=== PATIENT | female | born 1965 | race African-American/Black ===

== ENCOUNTER 2017-06-07 16:35 | Emergency (ER) | payer BC, OTHER ==
[~2017-06-07] VITALS: Ht 162.6 cm; Wt 161.8 kg
[~2017-06-07 16:35] MED LIST: ALBUAER2 INH; APR50 PO; FERR325T5 PO; LISI-725 PO; METO25TA3 PO
[2017-06-07 16:45] VITALS: TEMP 36.6
[2017-06-07] MEDS ORDERED: ONDANSETRON INJ 2 MG/ML 2 ML VIAL IV STA (17:44)
[2017-06-07] MEDS ORDERED: MoRPHine SULFATE 4 MG/ML 1 ML CARP\\VIAL IV STA (17:44)
[2017-06-07] MEDS ORDERED: SODIUM CHLORIDE 0.9% 1000ML 1,000 ML IV STA ×2 (17:44→20:32)
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
[2017-06-07 17:52] VITALS: Ht 162.6 cm; Wt 161.8 kg
[2017-06-07] MEDS ORDERED: DEXAMETHASONE SOD INJ 10 MG/ML VIAL IV ONE (18:00)
[2017-06-07] MEDS ORDERED: OPTIRAY 320 IV PRN (18:00)
[2017-06-07 18:27] LABS: BASO % 0.2 %; BASO ABS # 0.02 K/uL (0-0.2); COMPLETE YES; HEMATOCRIT 40.1 % (37-47); IG% 0.3 %; LYMPH % 29.6 %; LYMPH ABS # 3.43 K/uL (1.2-3.4); MEAN CELL VOLUME 86.2 fL (80-100); MEAN CORPUSCULAR HEMOGLOBIN 29.2 pg (25-34); MEAN CORPUSCULAR HGB CONC 33.9 g/dl (32-36); MONO % 6.9 %; PLATELET COUNT 273 K/uL (130-400); RED BLOOD COUNT 4.65 M/uL (4.2-5.4)
[2017-06-07 18:53] LABS: BUN/CREATININE RATIO 13.2 (10-20); CALCIUM 9.2 mg/dl (8.5-10.1); CREATININE 0.69 mg/dl (0.60-1.20); POTASSIUM 3.8 mmol/L (3.5-5.1)
--- NOTE | 2017-06-07 19:50 | DIAGNOSTIC IMAGING REPORT ---
HEAD COMBO CLINICAL HISTORY: 52 years-old Female presenting with left mastoid,face,neck pain swelling r/o infection. TECHNIQUE: Multidetector CT imaging of the head was performed before and after the administration of intravenous contrast. IV contrast: 116 mL of Optiray 320. A dose lowering technique was used consistent with the principles of ALARA (as low as reasonably achievable). COMPARISON: 06/03/2016. CT DOSE (mGy.cm): The estimated cumulative dose is 2622.[address] neck. FINDINGS: Case Sealer topogram: Unremarkable. Ventricles and sulci normal in size. Brain parenchyma normal in appearance with preserved deleon-white differentiation. No mass effect or midline shift. No hemorrhage or acute territorial infarct. No extra-axial fluid collection. Paranasal sinuses and mastoid air cells clear. Calvarium intact. No abnormal parenchymal enhancement. Intracranial vasculature grossly patent. IMPRESSION: 1. No acute intracranial pathology. No abnormal enhancement. Specifically, the left mastoid air cells are clear. Electronically signed by: Demetrio Anderson M.D. 06/07/2017 7:49 PM Dictated Date/Time: 06/07/2017 7:45 PM
--- NOTE | 2017-06-07 19:54 | DIAGNOSTIC IMAGING REPORT ---
CT NECK WITH INTRAVENOUS CONTRAST HISTORY: left mastoid,face,neck pain swelling r/o infection TECHNIQUE: Multiaxial CT images of the neck were performed on the use of intravenous contrast. COMPARISON STUDY: None. FINDINGS: The visualized brain parenchyma and orbits are unremarkable. The lung apices are clear. The paranasal sinuses and mastoid air cells are clear. The parotid and submandibular glands are symmetric. No cervical lymphadenopathy. The major mucosal airway surfaces are intact. Prevertebral soft tissues and the epiglottis are normal in thickness. The thyroid gland enhances normally. The major cervical vessels are widely patent. A few small bilateral intraparotid lymph nodes. No evidence for mass or abscess within the neck. IMPRESSION: No significant abnormality within the neck. Electronically signed by: Cruz Sher M.D. 06/07/2017 7:53 PM Dictated Date/Time: 06/07/2017 7:46 PM
[2017-06-07] MEDS ORDERED: METOCLOPRAMIDE HCL INJ 5 MG/ML 2 ML VIAL IV STA (20:32)
[2017-06-07] MEDS ORDERED: DiphenhydrAMINE HCL 50 MG/ML VIAL IV STA (20:32)
[2017-06-07] MEDS ORDERED: AMOXICILLIN/CLAVULANATE TAB 875 MG TAB PO STA (22:30)
[2017-06-07] MEDS ORDERED: AMOX875T PO (22:33)
[2017-06-07 22:40] VITALS: BP 151/76; PULSE 70; O2SAT 96
[2017-06-08] MEDS ORDERED: AMOXICILLIN/CLAVULANATE TAB 875 MG TAB PO SCH (09:00)
== END 2017-06-07 22:40 | disposition home or self-care (01) ==
LOC: C.EDB 16:36 → C.EDC 22:40
DX: H66.92 Otitis media, unspecified, left ear (principal); G43.909 Migraine, unspecified, not intractable, without status migrainosus; I10 Essential (primary) hypertension

== ENCOUNTER 2018-12-23 19:36 | Inpatient (IN) ==
[2018-12-23] MEDS ORDERED: SODIUM CHLORIDE 0.9% 500 ML IV ONE (19:52)
[2018-12-23] MEDS ORDERED: ALBUT/IPRATROP 3MG/0.5MG NEB 3 ML VIAL NEB ONE (20:03)
[2018-12-23] MEDS ORDERED: methylPREDNISolone 125 MG/2 ML VIAL IV STA (20:03)
--- NOTE | 2018-12-23 20:12 | XRay Report ---
XR chest 1V portable HISTORY: 53 years-old Female Chest Pain acute atypical chest pain COMPARISON: Chest radiograph 12/01/2012 TECHNIQUE: Portable AP view of the chest FINDINGS: Cardiac mediastinal and hilar silhouettes are unchanged. No pneumothorax, pleural effusion, focal air space consolidation or overt pulmonary edema. Bones of the chest appear grossly intact. IMPRESSION: No acute process. The above report was generated using voice recognition software. It may contain grammatical, syntax o r spelling errors. Electronically signed by: Kelby Ding M.D. 12/23/2018 8:11 PM
[2018-12-23 20:35] LABS: Base Excess VBG 1.7 mEq/L; Oxygen Saturation VBG 89.1 %; pH VBG 7.44 (7.36-7.41)
[2018-12-23 20:38] LABS: Basophils # (auto) 0.02 K/uL (0-0.2); Basophils % (auto) 0.1 %; Eosinophils # (auto) 0.14 K/uL (0-0.5); Eosinophils % (auto) 0.8 %; Hematocrit (blood only) 39.6 % (37-47); Hemoglobin 13.5 g/dL (12.0-16.0); Immature Granulocytes % (auto) 0.6 %; Lymphocytes # (auto) 3.54 K/uL (1.2-3.4); Mean Corpuscular Hgb Conc 34.1 g/dL (32-36); Mean Corpuscular Volume 86.8 fL (80-100); Monocytes # (auto) 1.17 K/uL (0.11-0.59); Monocytes % (auto) 6.6 %; Neutrophils # (auto) 12.76 K/uL (1.4-6.5); Neutrophils % (auto) 71.9 %; Platelet Count 282 K/uL (130-400); RDW Coefficient of Variation 13.9 % (11.5-14.5); RDW Standard Deviation 43.6 fL (36.4-46.3); Red Blood Count 4.56 M/uL (4.2-5.4); White Blood Count 17.73 K/uL (4.8-10.8)
[2018-12-23 21:09] LABS: Albumin Globulin Ratio 0.7 (0.9-2); Albumin Level 3.2 gm/dl (3.4-5.0); Bilirubin,Total 0.2 mg/dl (0.2-1); Calcium 8.7 mg/dl (8.5-10.1); Creatinine Clr Calc Pharmacy 150.1 ml/min; Est GFR (African American) 118.9; Est GFR (Non-African American) 102.6; Globulin 4.3 gm/dl (2.5-4.0); Magnesium 1.7 mg/dl (1.8-2.4); Potassium 3.6 mmol/L (3.5-5.1); Total Protein 7.5 gm/dl (6.4-8.2); Troponin I 0.017 ng/ml (0-0.045)
[2018-12-23 21:38] LABS: Influenza A virus by PCR Neg for Influ A (Neg); Influenza B virus by PCR Neg for Influ B (Neg)
[2018-12-23] MEDS ORDERED: MAGNESIUM SULFATE / D5W 1 GM/100 ML BAG IV ONE (21:46)
[2018-12-23] MEDS ORDERED: SODIUM CHLORIDE 0.9% 1000ML 500 ML IV ONE (21:46)
[2018-12-23] MEDS ORDERED: OPTIRAY 320 125ml IV PRN (22:22)
--- NOTE | 2018-12-23 22:22 | History & Physical Report ---
Date of Service December 23, 2018 Assessment & Plan (1) Multifocal pneumonia: 53 y/o F Hx systolic CHF, HTN, obese, depression, asthma. Presents with progressive SOB, back pain and a productive cough x 4 days. Presented to the ER in respiratory distress. Intubation was initially considered, however, she responded well to nebulizers and BiPAP. A CTA was obtained to r/o PE. No PE was apparent, however, this did demonstrate multifocal PNM. Labs are notable for mild leukocytosis. An EKG shows slight QT prolongation. 1) PNM and asthma exacerbation with respiratory distress/failure - placed on BiPAP, scheduled nebs, steroids, antibiotics. We will assign her to the ICU overnight. Narcotics provided for back pain as she may be allergic to NSAIDS. We have placed her on Ceftriaxone and Doxy due to her QT prolongation. 2) History of CHF - states her EF may have recovered to near-normal with treatment of her HTN - cont Lisinopril, Toprol. 3) Depression - cont Fluoxetine, Gabapentin 4) Morbidly obese - likely needs a sleep study and some nutritional or lifestyle counselling Full code - Heparin prophylaxis Total time for this admit including review of labs, meds, imaging, records - discussion with pt, ER attending, [employer] [employer] critical care time 45 min Present on Admission?: Yes History of Present Illness Chief Complaint: Respiratory distress Primary Care Provider: Chelo Escamilla 53 y/o F Hx systolic CHF, HTN, obese, depression, asthma. Presents with progressive SOB, back pain and a productive cough x 4 days. Presented to the ER in respiratory distress. Intubation was initially considered, however, she responded well to nebulizers and BiPAP. A CTA was obtained to r/o PE. No PE was apparent, however, this did demonstrate multifocal PNM. Labs are notable for mild leukocytosis. An EKG shows slight QT prolongation. PMH: 1) Systolic CHF - nonischemic cardiomyopathy. This was thought due to undiagnosed HTN. An echo in 2012 demonstrated an EF of ~40%. 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 Family: DM II, HTN Allergies Allergy/AdvReac Type Severity Reaction Status Date / Time bee venom protein (honey bee) Allergy Severe THROAT Unverified 12/23/18 22:08 SWELLING ibuprofen Allergy Unknown swelling Unverified 12/23/18 22:08 mushroom Allergy Unknown swelling Unverified 12/23/18 22:08 Home Medications Home Medications Medication Instructions Recorded Confirmed Type albuterol sulfate 6 ml INHALATION Q6 PRN 08/12/18 12/23/18 History albuterol sulfate [Ventolin HFA] 2 puff INHALATION QID PRN 08/12/18 12/23/18 History ferrous sulfate 325 mg PO DAILY 08/12/18 12/23/18 History hydralazine 50 mg PO TID 08/12/18 12/23/18 History lisinopril 10 mg PO DAILY 08/12/18 12/23/18 History metoprolol succinate [Toprol XL] 25 mg PO DAILY 08/12/18 12/23/18 History fluoxetine 0 mg PO DAILY 12/23/18 12/23/18 History gabapentin 300 mg PO TID 12/23/18 12/23/18 History Past Med/Surg History Medical History HTN (hypertension) (Chronic) Asthma (Chronic) PNA (pneumonia) (Resolved) Surgical History Previous section Social History Preferred Language: Romansh Feels Safe at Home: Yes Smoking Status: Former smoker Review of Systems Review of Systems: Gen: Denies fevers, night sweats, rigors, fatigue, malaise, weight loss/gain ENT: Denies congestion, throat pain, hearing loss Eyes: Denies acute visual changes CV: Denies CP, palpitations Pulmonary: Productive cough and progressive SOB. GI: Denies N/V, diarrhea, constipation. Neuro: Denies acute or unilateral weakness, acute gait impairment, headache or acute visual changes Musculoskeletal: Denies joint pain, inflammation Endocrine: Denies polydipsia, polyuria Skin: Denies acute rashes or ulcers Physical Exam Physical Exam: General: Overweight, middle-aged F, mild distress, AAO x 3 ENT: No erythema or exudates, no thrush Eyes: KEV, EOMI Head and neck: Normocephalic, atraumatic, No JVD, neck is supple. Chest/heart: Nontender, S1,2, tachy, no murmurs, no gallops Lungs: Poor air movement and wheezing in all mei Abdomen: Nontender, nondistended, BS+ Neuro: AAO x 3, speech is clear, no unilateral weakness or loss of sensation, coordination intact Musculoskeletal: No joint inflammation, muscle tenderness, FROM Skin: No acute rashes or ulcers Extremities: No clubbing, cyanosis - + edema Results & Data Vital Signs (Past 12 Hours) Vital Signs Temp Pulse Pulse Resp BP Pulse Ox 12/23/18 21:50 107 H 29 H 98 12/23/18 21:30 102 H 27 H 193/96 H 98 12/23/18 21:27 99 H 23 187/92 H 98 12/23/18 20:17 96 H 33 H 97 12/23/18 20:16 96 H 33 H 97 12/23/18 19:40 98.4 F 96 H 28 H 194/90 H 95
--- NOTE | 2018-12-23 22:37 | CT Scan Report ---
CT angio chest PE protocol CT DOSE: 953.02 mGy.cm HISTORY: 53 years-old Female with PE. Acute shortness of breath with cough TECHNIQUE: Multiple CTA images of the chest were obtained after the intravenous administration of 116 ml Optiray 320. Coronal and sagittal MIPS were obtained from the axial data set and were submitted for review. All measurements were obtained according to NASCET criteria. A dose lowering technique w as utilized adhering to the principles of ALARA. COMPARISON: CTA chest 11/15/2012 FINDINGS: CTA: The heart is mildly enlarged. No pericardial effusion. There is no thoracic aortic aneurysm or dissec tion. See of the imaged great vessels. There is mild dilation about the main pulmonary artery, 3.5 cm transversely which may reflect pulmonary arterial hypertension in the appropriate clinical setting. Respiratory motion limits evaluation of the pulmonary arterial tree. The pulmonary arteries are opaci fied to the level of the lobar segments. The segmental and subsegmental branches are not well opacifi ed. No evidence of central pulmonary emboli. CT CHEST: Thyroid appears mildly enlarged. Prominent AP window lymph nodes are seen measuring up to 8 mm, possi allan reactive. No enlarged lymph nodes by CT size criteria. There is no pneumothorax or pleural effusion. No overt pulmonary edema. There are patchy consolidativ e subsegmental opacities noted about the medial segment right middle lobe, medial basal segment right lower lobe and perihilar right upper lobe, basal left lower lobe and lingula with mild basilar bronc hial wall thickening. There are no suspicious pulmonary nodules or masses identified. Central airways appear patent. Prior cholecystectomy. Hepatomegaly with hepatic steatosis. Mild nonspecific wall thickening about th e distal esophagus. Soft tissues are unremarkable. Bones appear to be intact. Degenerative changes of the shoulders and spine. IMPRESSION: 1. Limited evaluation of the pulmonary arterial tree as above. No central pulmonary emboli identified . 2. Patchy subsegmental alveolar opacities within all lobes bilaterally suggest multifocal pneumonia. 3. Mildly prominent AP window lymph nodes, likely reactive. 4. Mild cardiomegaly with suggestion of pulmonary arterial hypertension. 5. Hepatomegaly with hepatic steatosis. 6. Cholecystectomy. The above report was generated using voice recognition software. It may contain grammatical, syntax o r spelling errors. Electronically signed by: Kelby Ding M.D. 12/23/2018 10:36 PM
[2018-12-23] MEDS ORDERED: DOXYCYCLINE HYCLATE 100 MG in DEXTROSE 5% 100 ML IV STA (22:41)
[2018-12-23] MEDS ORDERED: cefTRIAXone SODIUM 1,000 MG/50 ML BAG IV STA (22:41)
[2018-12-23] MEDS ORDERED: cefTRIAXone SODIUM 2,000 MG in DEXTROSE 5% 50 ML IV STA (22:43)
--- NOTE | 2018-12-23 23:13 | Emergency Department Note ---
Entered by Marely Mitchell acting as a scribe for History of Present Illness General Chief complaint: Shortness of Breath/Dyspnea Stated complaint: COUGH, SOB, BACK PAIN Time Seen by Provider: 12/23/18 19:52 Source: patient Mode of arrival: wheelchair Limitations: no limitations History of Present Illness Onset (ago): day(s) 4 Location: chest Radiation: non-radiation Pain Consistency: + other (worsening) Maximum Pain Intensity: 10 Current Pain Intensity: 10 Relieved By: + other (nebulizer) Associated symptoms: + nausea/vomiting and + other (+back pain); no fever/chills Treatments prior to arrival: other (nebulizer treatment) The patient is a 53 year old female who presents to the ED with complaints of shortness of breath. She states she has experienced a productive cough for the past 4 days and her breathing has been gradually worsening. She rates her discomfort as a 10/10 in severity. She notes "everyone in my house is sick right now, I thought this was just a cold". She admits to a history of asthma and states she has been using her nebulizer treatments at home. She denies any fevers. She has been vomiting and also complains of back pain. Home Medications Home Medications Medication Instructions Recorded Confirmed Type albuterol sulfate 6 ml INHALATION Q6 PRN 08/12/18 12/23/18 History albuterol sulfate [Ventolin HFA] 2 puff INHALATION QID PRN 08/12/18 12/23/18 History ferrous sulfate 325 mg PO DAILY 08/12/18 12/23/18 History hydralazine 50 mg PO TID 08/12/18 12/23/18 History lisinopril 10 mg PO DAILY 08/12/18 12/23/18 History metoprolol succinate [Toprol XL] 25 mg PO DAILY 08/12/18 12/23/18 History fluoxetine 0 mg PO DAILY 12/23/18 12/23/18 History gabapentin 300 mg PO TID 12/23/18 12/23/18 History Allergies Allergy/AdvReac Type Severity Reaction Status Date / Time bee venom protein (honey bee) Allergy Severe THROAT Unverified 12/23/18 22:08 SWELLING ibuprofen Allergy Unknown swelling Unverified 12/23/18 22:08 mushroom Allergy Unknown swelling Unverified 12/23/18 22:08 Past Med/Surg History Medical History HTN (hypertension) (Chronic) Asthma (Chronic) PNA (pneumonia) (Resolved) Surgical History Previous section Social History Preferred Language: Tajik Communication Ability: Effective Passenger Interline Clerk Required: No Beliefs That Will Affect Care: None Current Living Situation: Family Current Living Situation Comment: adult dtrs live w/ her Other Information That Helps Us Care for You: No Feels Safe at Home: Yes Safety Concerns: Feels Safe At This Time Smoking Status: Former smoker Do You Dip or Chew Tobacco: No Smoking End Date: 2011 Second Hand Exposure: Yes Tobacco Cessation Education Requested by Patient: No Hx Alcohol Use: Yes Alcohol type: wine Hx Substance Use: No Review of Systems See HPI for pertinent positives & negatives. and A total of 10 systems reviewed and were otherwise negative Physical Exam Vital Signs Vital Signs - 24 hr 12/23/18 19:40 12/23/18 20:16 12/23/18 20:17 Temperature 36.9 C Temperature Source Oral Sepsis Recent Fever Within 48 Hours No Sepsis Action Taken by Nursing No Action Required Pulse Rate 96 H 96 H Pulse Rate [Right Radial] 96 H Pulse Rate from SpO2 Sensor Pulse Rhythm [Right Radial] Pulse Strength [Right Radial] Respiratory Rate 28 H 33 H 33 H Respiratory Effort / Characteristics Non-Labored Spontaneous Non-Labored Spontaneous Spontaneous Respiratory Depth Normal Normal Respiratory Pattern Regular Blood Pressure 194/90 H Blood Pressure [Right Arm] Blood Pressure Mean 124 Blood Pressure Mean [Right Arm] Blood Pressure Position Sitting Blood Pressure Position [Right Arm] Pulse Oximetry 95 97 97 Pulse Oximetry [Right Index Finger] Oxygen Delivery Method Room Air BiPAP Oxygen Delivery Method [Right Index Finger] Oxygen Flow Rate Fraction of Inspired Oxygen 30 30 SaO2/FiO2 Ratio 12/23/18 20:42 12/23/18 21:27 12/23/18 21:30 Temperature Temperature Source Sepsis Recent Fever Within 48 Hours Sepsis Action Taken by Nursing Pulse Rate 99 H 102 H Pulse Rate [Right Radial] Pulse Rate from SpO2 Sensor 99 H 102 H Pulse Rhythm [Right Radial] Pulse Strength [Right Radial] Respiratory Rate 23 27 H Respiratory Effort / Characteristics Respiratory Depth Respiratory Pattern Blood Pressure 187/92 H 193/96 H Blood Pressure [Right Arm] Blood Pressure Mean 123 128 Blood Pressure Mean [Right Arm] Blood Pressure Position Blood Pressure Position [Right Arm] Pulse Oximetry 98 98 Pulse Oximetry [Right Index Finger] Oxygen Delivery Method BiPAP BiPAP BiPAP Oxygen Delivery Method [Right Index Finger] Oxygen Flow Rate Fraction of Inspired Oxygen SaO2/FiO2 Ratio 12/23/18 21:50 12/23/18 22:00 12/23/18 22:32 Temperature Temperature Source Sepsis Recent Fever Within 48 Hours Sepsis Action Taken by Nursing Pulse Rate 107 H 104 H 105 H Pulse Rate [Right Radial] Pulse Rate from SpO2 Sensor 104 H 103 H Pulse Rhythm [Right Radial] Pulse Strength [Right Radial] Respiratory Rate 29 H 23 33 H Respiratory Effort / Characteristics Spontaneous Respiratory Depth Normal Respiratory Pattern Tachypnea Blood Pressure 181/92 H Blood Pressure [Right Arm] Blood Pressure Mean 121 Blood Pressure Mean [Right Arm] Blood Pressure Position Blood Pressure Position [Right Arm] Pulse Oximetry 98 90 95 Pulse Oximetry [Right Index Finger] Oxygen Delivery Method BiPAP BiPAP Oxygen Delivery Method [Right Index Finger] Oxygen Flow Rate Fraction of Inspired Oxygen 30 SaO2/FiO2 Ratio 12/23/18 23:00 12/23/18 23:02 12/23/18 23:30 Temperature Temperature Source Sepsis Recent Fever Within 48 Hours Sepsis Action Taken by Nursing Pulse Rate 91 H 99 H Pulse Rate [Right Radial] 94 H Pulse Rate from SpO2 Sensor 91 H 99 H Pulse Rhythm [Right Radial] Regular Pulse Strength [Right Radial] Normal Respiratory Rate 25 H 24 33 H Respiratory Effort / Characteristics Non-Labored Spontaneous Respiratory Depth Normal Respiratory Pattern Regular Blood Pressure Blood Pressure [Right Arm] 195/85 H Blood Pressure Mean Blood Pressure Mean [Right Arm] 121 Blood Pressure Position Blood Pressure Position [Right Arm] Sitting Pulse Oximetry 97 96 91 Pulse Oximetry [Right Index Finger] Oxygen Delivery Method BiPAP BiPAP Oxygen Delivery Method [Right Index Finger] Oxygen Flow Rate Fraction of Inspired Oxygen SaO2/FiO2 Ratio 12/23/18 23:41 12/23/18 23:48 12/24/18 00:22 Temperature Temperature Source Sepsis Recent Fever Within 48 Hours Sepsis Action Taken by Nursing Pulse Rate 91 H 95 H Pulse Rate [Right Radial] Pulse Rate from SpO2 Sensor 91 H Pulse Rhythm [Right Radial] Pulse Strength [Right Radial] Respiratory Rate 28 H 22 Respiratory Effort / Characteristics Labored Short of Breath Respiratory Depth Normal Respiratory Pattern Regular Blood Pressure 176/74 H 176/74 H Blood Pressure [Right Arm] Blood Pressure Mean 108 Blood Pressure Mean [Right Arm] Blood Pressure Position Blood Pressure Position [Right Arm] Pulse Oximetry 97 67 L Pulse Oximetry [Right Index Finger] 98 Oxygen Delivery Method Nasal Cannula BiPAP Oxygen Delivery Method [Right Index Finger] BiPAP Oxygen Flow Rate 3 Fraction of Inspired Oxygen SaO2/FiO2 Ratio 12/24/18 00:25 12/24/18 00:28 12/24/18 00:30 Temperature 36.9 C Temperature Source Sepsis Recent Fever Within 48 Hours Sepsis Action Taken by Nursing Pulse Rate 94 H 94 H 103 H Pulse Rate [Right Radial] Pulse Rate from SpO2 Sensor 94 H 103 H Pulse Rhythm [Right Radial] Pulse Strength [Right Radial] Respiratory Rate 24 27 H 38 H Respiratory Effort / Characteristics Respiratory Depth Respiratory Pattern Blood Pressure 173/75 H Blood Pressure [Right Arm] Blood Pressure Mean 107 Blood Pressure Mean [Right Arm] Blood Pressure Position Blood Pressure Position [Right Arm] Pulse Oximetry 97 96 Pulse Oximetry [Right Index Finger] Oxygen Delivery Method Oxygen Delivery Method [Right Index Finger] Oxygen Flow Rate Fraction of Inspired Oxygen SaO2/FiO2 Ratio 12/24/18 00:34 12/24/18 00:52 12/24/18 01:00 Temperature 36.9 C Temperature Source Oral Sepsis Recent Fever Within 48 Hours Sepsis Action Taken by Nursing Pulse Rate 94 H 91 H Pulse Rate [Right Radial] 94 H Pulse Rate from SpO2 Sensor 91 H Pulse Rhythm [Right Radial] Regular Pulse Strength [Right Radial] Normal Respiratory Rate 26 H 24 24 Respiratory Effort / Characteristics Spontaneous Short of Breath SOB on Exertion Respiratory Depth Normal Normal Respiratory Pattern Tachypnea Regular Blood Pressure Blood Pressure [Right Arm] 173/75 H Blood Pressure Mean Blood Pressure Mean [Right Arm] 107 Blood Pressure Position Blood Pressure Position [Right Arm] Pulse Oximetry 97 98 99 Pulse Oximetry [Right Index Finger] Oxygen Delivery Method BiPAP Oxygen Delivery Method [Right Index Finger] Oxygen Flow Rate Fraction of Inspired Oxygen 30 30 SaO2/FiO2 Ratio 326 12/24/18 01:01 12/24/18 01:30 12/24/18 02:00 Temperature Temperature Source Sepsis Recent Fever Within 48 Hours Sepsis Action Taken by Nursing Pulse Rate 103 H 95 H 86 Pulse Rate [Right Radial] Pulse Rate from SpO2 Sensor 99 H 96 H 87 Pulse Rhythm [Right Radial] Pulse Strength [Right Radial] Respiratory Rate 33 H 23 27 H Respiratory Effort / Characteristics Respiratory Depth Respiratory Pattern Blood Pressure 170/74 H Blood Pressure [Right Arm] Blood Pressure Mean 106 Blood Pressure Mean [Right Arm] Blood Pressure Position Blood Pressure Position [Right Arm] Pulse Oximetry 98 100 98 Pulse Oximetry [Right Index Finger] Oxygen Delivery Method Oxygen Delivery Method [Right Index Finger] Oxygen Flow Rate Fraction of Inspired Oxygen SaO2/FiO2 Ratio 12/24/18 02:01 12/24/18 03:00 12/24/18 03:01 Temperature Temperature Source Sepsis Recent Fever Within 48 Hours Sepsis Action Taken by Nursing Pulse Rate 87 78 79 Pulse Rate [Right Radial] Pulse Rate from SpO2 Sensor 88 80 79 Pulse Rhythm [Right Radial] Pulse Strength [Right Radial] Respiratory Rate 30 H 26 H 28 H Respiratory Effort / Characteristics Respiratory Depth Respiratory Pattern Blood Pressure 179/81 H 155/62 H Blood Pressure [Right Arm] Blood Pressure Mean 113 93 Blood Pressure Mean [Right Arm] Blood Pressure Position Blood Pressure Position [Right Arm] Pulse Oximetry 98 97 96 Pulse Oximetry [Right Index Finger] Oxygen Delivery Method Oxygen Delivery Method [Right Index Finger] Oxygen Flow Rate Fraction of Inspired Oxygen SaO2/FiO2 Ratio 12/24/18 04:00 12/24/18 04:01 12/24/18 04:02 Temperature Temperature Source Sepsis Recent Fever Within 48 Hours Sepsis Action Taken by Nursing Pulse Rate 88 75 75 Pulse Rate [Right Radial] Pulse Rate from SpO2 Sensor 85 75 79 Pulse Rhythm [Right Radial] Pulse Strength [Right Radial] Respiratory Rate 22 25 H 27 H Respiratory Effort / Characteristics Respiratory Depth Respiratory Pattern Blood Pressure 164/73 H Blood Pressure [Right Arm] Blood Pressure Mean 103 Blood Pressure Mean [Right Arm] Blood Pressure Position Blood Pressure Position [Right Arm] Pulse Oximetry 96 94 96 Pulse Oximetry [Right Index Finger] Oxygen Delivery Method Oxygen Delivery Method [Right Index Finger] Oxygen Flow Rate Fraction of Inspired Oxygen SaO2/FiO2 Ratio 12/24/18 05:06 12/24/18 05:32 12/24/18 07:00 Temperature Temperature Source Sepsis Recent Fever Within 48 Hours Sepsis Action Taken by Nursing Pulse Rate 74 97 H 66 Pulse Rate [Right Radial] Pulse Rate from SpO2 Sensor 77 Pulse Rhythm [Right Radial] Pulse Strength [Right Radial] Respiratory Rate 24 24 20 Respiratory Effort / Characteristics Non-Labored Spontaneous Respiratory Depth Normal Respiratory Pattern Regular Blood Pressure 181/81 H 193/85 H Blood Pressure [Right Arm] Blood Pressure Mean 114 121 Blood Pressure Mean [Right Arm] Blood Pressure Position Blood Pressure Position [Right Arm] Pulse Oximetry 100 97 97 Pulse Oximetry [Right Index Finger] Oxygen Delivery Method Nasal Cannula Oxygen Delivery Method [Right Index Finger] Oxygen Flow Rate 3 Fraction of Inspired Oxygen 30 SaO2/FiO2 Ratio 12/24/18 07:28 12/24/18 08:00 12/24/18 09:00 Temperature 36.7 C Temperature Source Sepsis Recent Fever Within 48 Hours Sepsis Action Taken by Nursing Pulse Rate 88 83 Pulse Rate [Right Radial] 92 H Pulse Rate from SpO2 Sensor Pulse Rhythm [Right Radial] Pulse Strength [Right Radial] Respiratory Rate 18 19 25 H Respiratory Effort / Characteristics Non-Labored Spontaneous Non-Labored Spontaneous Respiratory Depth Normal Respiratory Pattern Regular Blood Pressure 166/73 H 166/66 H Blood Pressure [Right Arm] Blood Pressure Mean 104 99 Blood Pressure Mean [Right Arm] Blood Pressure Position Blood Pressure Position [Right Arm] Pulse Oximetry 99 97 98 Pulse Oximetry [Right Index Finger] Oxygen Delivery Method Nasal Cannula Nasal Cannula Nasal Cannula Oxygen Delivery Method [Right Index Finger] Oxygen Flow Rate 4 3 2 Fraction of Inspired Oxygen SaO2/FiO2 Ratio 12/24/18 10:00 12/24/18 11:00 12/24/18 11:25 Temperature 36.7 C Temperature Source Sepsis Recent Fever Within 48 Hours Sepsis Action Taken by Nursing Pulse Rate 76 85 Pulse Rate [Right Radial] 74 Pulse Rate from SpO2 Sensor Pulse Rhythm [Right Radial] Pulse Strength [Right Radial] Respiratory Rate 27 H 20 18 Respiratory Effort / Characteristics Non-Labored Spontaneous Respiratory Depth Respiratory Pattern Blood Pressure 170/81 H 189/80 H Blood Pressure [Right Arm] Blood Pressure Mean 110 116 Blood Pressure Mean [Right Arm] Blood Pressure Position Blood Pressure Position [Right Arm] Pulse Oximetry 96 96 97 Pulse Oximetry [Right Index Finger] Oxygen Delivery Method Room Air Room Air Room Air Oxygen Delivery Method [Right Index Finger] Oxygen Flow Rate Fraction of Inspired Oxygen SaO2/FiO2 Ratio 12/24/18 12:00 12/24/18 14:41 12/24/18 15:19 Temperature 36.9 C Temperature Source Oral Sepsis Recent Fever Within 48 Hours Sepsis Action Taken by Nursing Pulse Rate 99 H Pulse Rate [Right Radial] 81 81 Pulse Rate from SpO2 Sensor Pulse Rhythm [Right Radial] Pulse Strength [Right Radial] Respiratory Rate 22 21 18 Respiratory Effort / Characteristics Non-Labored Spontaneous Non-Labored Spontaneous Respiratory Depth Normal Respiratory Pattern Regular Blood Pressure 183/95 H Blood Pressure [Right Arm] 188/74 H Blood Pressure Mean 124 Blood Pressure Mean [Right Arm] 112 Blood Pressure Position Blood Pressure Position [Right Arm] Lying Pulse Oximetry 95 94 94 Pulse Oximetry [Right Index Finger] Oxygen Delivery Method Room Air Room Air Oxygen Delivery Method [Right Index Finger] Oxygen Flow Rate Fraction of Inspired Oxygen SaO2/FiO2 Ratio 12/24/18 15:23 Temperature 36.4 C L Temperature Source Oral Sepsis Recent Fever Within 48 Hours Sepsis Action Taken by Nursing Pulse Rate Pulse Rate [Right Radial] 92 H Pulse Rate from SpO2 Sensor Pulse Rhythm [Right Radial] Pulse Strength [Right Radial] Respiratory Rate 18 Respiratory Effort / Characteristics Respiratory Depth Respiratory Pattern Blood Pressure Blood Pressure [Right Arm] 188/72 H Blood Pressure Mean Blood Pressure Mean [Right Arm] 110 Blood Pressure Position Blood Pressure Position [Right Arm] Lying Pulse Oximetry 95 Pulse Oximetry [Right Index Finger] Oxygen Delivery Method Room Air Oxygen Delivery Method [Right Index Finger] Oxygen Flow Rate Fraction of Inspired Oxygen SaO2/FiO2 Ratio GENERAL: Awake, alert, ill-appearing, in moderate respiratory distress. BMI 60kg/m2 HENT: Normocephalic, atraumatic. Oropharynx with dry mucous membranes and otherwise unremarkable. Boggy nasal turbinates. EYES: Normal conjunctiva. Sclera non-icteric. NECK: Supple. No nuchal rigidity. FROM. No JVD. RESPIRATORY: Moderate respiratory distress, diminished breath sounds with diffuse wheezes, increased work of breathing with accessory muscle use. CARDIAC: Regular rate, normal rhythm. Extremities warm and well perfused. Pulses equal. ABDOMEN: Soft, non-distended. No tenderness to palpation. No rebound or guarding. No masses. RECTAL: Deferred. MUSCULOSKELETAL: Chest examination reveals no tenderness. The back is symmetrical on inspection without obvious abnormality. There is no CVA tenderness to palpation. No joint edema. LOWER EXTREMITIES: Calves are equal size bilaterally and non-tender. Scant bilateral LE edema. No discoloration. NEURO: Normal sensorium. No sensory or motor deficits noted. SKIN: No rash or jaundice noted. Course 2000: The patient was evaluated in room C7 and a complete history and physical was performed. 2039: I reevaluated the patient. She is doing much better on BIPAP. Her respiratory rate is down to 17. 2144: I discussed the patients case with Dr. Cancino, [facility] Hospitalist. The patient will be further evaluated. Consultations Consultation #1: [facility] the [facility] The patient will be further evaluated. Time: 21:45 Administered Medications Albuterol (Duoneb) 3 ml NEB QIDR MARCELINA Stop: 01/23/19 07:59 Last Admin: 12/24/18 15:15 Dose: 3 ml Documented by: [id number] Admin: 12/24/18 11:25 Dose: 3 ml Documented by: [id number] Admin: 12/24/18 07:28 Dose: 3 ml Documented by: [id number] Fluoxetine HCl (Prozac) 20 mg PO DAILY [facility] Stop: 01/23/19 08:59 Last Admin: 12/24/18 12:14 Dose: 20 mg Documented by: [id number] Admin: 12/24/18 08:00 Dose: Not Given Documented by: [id number] Gabapentin (Neurontin) 300 mg PO TID [facility] Stop: 01/23/19 08:59 Last Admin: 12/24/18 13:04 Dose: Not Given Documented by: [id number] Admin: 12/24/18 08:00 Dose: Not Given Documented by: [id number] Hydralazine HCl (Apresoline) 50 mg PO TID MARCELINA Stop: 01/23/19 08:59 Last Admin: 12/24/18 13:04 Dose: 50 mg Documented by: [id number] Admin: 12/24/18 07:56 Dose: 50 mg Documented by: [id number] Methylprednisolone 60 mg/ (Syringe) 0.96 mls @ 1.5 mls/min IV Q6H MARCELINA Stop: 01/23/19 02:59 Last Admin: 12/24/18 15:56 Dose: 1.5 mls/min Documented by: [id number] Admin: 12/24/18 07:55 Dose: 1.5 mls/min Documented by: [id number] Admin: 12/24/18 03:04 Dose: 1.5 mls/min Documented by: [id number] Insulin Aspart (Novolog Flexpen) 0 units SC ACHS MARCELINA Stop: 01/23/19 07:29 Last Admin: 12/24/18 11:36 Dose: 12 units Documented by: [id number] Cosigned by: [id number] Admin: 12/24/18 07:54 Dose: 10 units Documented by: [id number] Cosigned by: [id number] Lisinopril (Zestril) 10 mg PO DAILY MARCELINA Stop: 01/23/19 08:59 Last Admin: 12/24/18 07:55 Dose: 10 mg Documented by: [id number] Metoprolol Succinate (Toprol Xl) 25 mg PO DAILY MARCELINA Stop: 01/23/19 08:59 Last Admin: 12/24/18 07:55 Dose: 25 mg Documented by: [id number] Discontinued Medications Albuterol (Duoneb) 12 ml NEB ONE ONE Stop: 12/23/18 20:04 Last Admin: 12/23/18 20:11 Dose: 12 ml Documented by: [id number] Sodium Chloride (Nss) 500 mls @ 999 mls/hr IV .Q31M ONE Stop: 12/23/18 20:22 Last Infusion: 12/23/18 22:34 Dose: 0 mls/hr Documented by: [id number] Admin: 12/23/18 21:30 Dose: 999 mls/hr Documented by: [id number] Magnesium Sulfate/Dextrose (Magnesium Sulfate / D5w) 1 gm in 100 mls @ 100 mls/hr IV ONE ONE Stop: 12/23/18 22:45 Last Infusion: 12/24/18 00:07 Dose: 0 mls/hr Documented by: [id number] Admin: 12/23/18 22:41 Dose: 100 mls/hr Documented by: [id number] Sodium Chloride (Nss 1000ml) 500 mls @ 999 mls/hr IV .Q31M ONE Stop: 12/23/18 22:16 Last Infusion: 12/23/18 23:21 Dose: 0 mls/hr Documented by: [id number] Admin: 12/23/18 22:41 Dose: 999 mls/hr Documented by: [id number] Ceftriaxone Sodium (Rocephin) 1,000 mg in 50 mls @ 100 mls/hr IV NOW STA Stop: 12/23/18 23:10 Last Admin: 12/23/18 23:37 Dose: Not Given Documented by: [id number] Doxycycline Hyclate 100 mg/ (Dextrose) 110 mls @ 50 mls/hr IV NOW STA Stop: 12/24/18 00:52 Last Infusion: 12/24/18 08:23 Dose: 0 mls/hr Documented by: [id number] Admin: 12/24/18 00:04 Dose: 50 mls/hr Documented by: [id number] Ceftriaxone Sodium 2,000 mg/ (Dextrose) 70 mls @ 100 mls/hr IV NOW STA Stop: 12/23/18 23:24 Last Infusion: 12/24/18 00:05 Dose: 0 mls/hr Documented by: [id number] Admin: 12/23/18 23:23 Dose: 100 mls/hr Documented by: [id number] Doxycycline Hyclate 100 mg/ (Dextrose) 110 mls @ 50 mls/hr IV Q12H MARCELINA Stop: 12/24/18 12:00 Last Infusion: 12/24/18 12:37 Dose: 0 mls/hr Documented by: [id number] Admin: 12/24/18 10:28 Dose: 50 mls/hr Documented by: [id number] Potassium Chloride/Sodium Chloride (Normal Saline W/20 Meq Kcl) 20 meq in 1,000 mls @ 100 mls/hr IV .Q10H MARCELINA Stop: 12/24/18 11:59 Last Infusion: 12/24/18 12:37 Dose: 0 mls/hr Documented by: [id number] Admin: 12/24/18 02:16 Dose: 100 mls/hr Documented by: [id number] Insulin Human Regular 10 units (/ Syringe) 10 mls @ 1 mls/min IV ONE ONE Stop: 12/24/18 05:54 Last Admin: 12/24/18 06:08 Dose: 1 mls/min Documented by: [id number] Cosigned by: [id number] Insulin Aspart (Novolog Flexpen) 7 units SC NOW STA Stop: 12/24/18 02:13 Last Admin: 12/24/18 03:05 Dose: 7 units Documented by: [id number] Cosigned by: [id number] Insulin Aspart (Novolog Flexpen) 10 units SC ONE STA Stop: 12/24/18 05:42 Last Admin: 12/24/18 06:06 Dose: 10 units Documented by: [id number] Cosigned by: [id number] Insulin Glargine (Lantus Solostar Pen) 30 units SQ NOW STA Stop: 12/24/18 05:36 Last Admin: 12/24/18 06:05 Dose: 30 units Documented by: [id number] Cosigned by: [id number] Ioversol (Optiray 320 125ml) 116 ml IV ONCE PRN PRN Reason: Interaction Checking Stop: 12/27/18 22:21 Last Admin: 12/23/18 22:23 Dose: 116 ml Documented by: [id number] Methylprednisolone (Solumedrol) 125 mg IV NOW STA Stop: 12/23/18 20:04 Last Admin: 12/23/18 20:44 Dose: 125 mg Documented by: [id number] Morphine Sulfate (Morphine Sulfate) 4 mg IV Q4H PRN PRN Reason: Pain Stop: 01/07/19 00:21 Last Admin: 12/24/18 02:16 Dose: 4 mg Documented by: [id number] Medical Decision Making Differential Diagnosis Differential diagnoses includes but is not limited to pneumonia, bronchitis, COPD/Asthma exacerbation, pneumothorax, pulmonary embolism, congestive heart failure, acute coronary syndrome Medical Records Attestation: I reviewed the patient's medical records. Home Medications Current Medication List: was personally reviewed by me Laboratory Data Attestation: I reviewed the patient's lab results. Result diagrams: 12/24/18 04:44 12/24/18 04:44 Lab Results 12/23/18 12/23/18 12/23/18 Range/Units 20:24 20:28 20:28 WBC 17.73 H (4.8-10.8) K/uL RBC 4.56 (4.2-5.4) M/uL Hgb 13.5 (12.0-16.0) g/dL Hct 39.6 (37-47) % MCV 86.8 (80-100) fL MCH 29.6 (25-34) pg MCHC 34.1 (32-36) g/dL RDW Std Deviation 43.6 (36.4-46.3) fL RDW Coeff of Anup 13.9 (11.5-14.5) % Plt Count 282 (130-400) K/uL MPV 11.0 H (7.4-10.4) fL Immature Gran % (Auto) 0.6 % Neut % (Auto) 71.9 % Lymph % (Auto) 20.0 % [place] % (Auto) 6.6 % Eos % (Auto) 0.8 % Baso % (Auto) 0.1 % Immature Gran # (Auto) 0.10 H (0.00-0.02) K/uL Neut # (Auto) 12.76 H (1.4-6.5) K/uL Lymph # (Auto) 3.54 H (1.2-3.4) K/uL [place] # (Auto) 1.17 H (0.11-0.59) K/uL Eos # (Auto) 0.14 (0-0.5) K/uL Baso # (Auto) 0.02 (0-0.2) K/uL VBG pH 7.44 H (7.36-7.41) VBG pCO2 40 (38-50) mmHg VBG pO2 56 mmHg VBG HCO3 26 mmol/L VBG O2 Saturation 89.1 % VBG Base Excess 1.7 mEq/L Barometric Pressure 720.5 mm/Hg Sodium 140 (136-145) mmol/L Potassium 3.6 (3.5-5.1) mmol/L Chloride 107 (98-107) mmol/L Carbon Dioxide 26 (21-32) mmol/L Anion Gap 7.0 (3-11) BUN 9 (7-18) mg/dl Creatinine 0.64 (0.6-1.2) mg/dl Est Cr Clr Drug Dosing 150.1 ml/min Est GFR ( Amer) 118.9 Est GFR (Non-Af Amer) 102.6 BUN/Creatinine Ratio 14.0 (10-20) Glucose 156 H (70-99) mg/dl POC Glucose (70-99) Estimat Average Glucose mg/dl Hemoglobin A1c (4.5-5.6) % Lactate (0.4-2.0) mmol/L Calcium 8.7 (8.5-10.1) mg/dl Magnesium 1.7 L (1.8-2.4) mg/dl Total Bilirubin 0.2 (0.2-1) mg/dl AST 13 L (15-37) U/L ALT 17 (12-78) U/L Alkaline Phosphatase 90 (45-117) U/L Troponin I 0.017 (0-0.045) ng/ml NT-Pro-B Natriuret Pep (0-900) pg/ml Total Protein 7.5 (6.4-8.2) gm/dl Albumin 3.2 L (3.4-5.0) gm/dl Globulin 4.3 H (2.5-4.0) gm/dl Albumin/Globulin Ratio 0.7 L (0.9-2) Lipase 164 (73-393) U/L Beta-Hydroxybutyric Acd (0.2-2.81) mg/dl Procalcitonin (0-0.5) ng/ml Specimen Hemolysis Nasal Screen MRSA (PCR) (Negative) Influenza Type A (PCR) (Neg) Influenza Type B (PCR) (Neg) 12/23/18 12/23/18 12/23/18 Range/Units 20:28 20:28 20:50 WBC (4.8-10.8) K/uL RBC (4.2-5.4) M/uL Hgb (12.0-16.0) g/dL Hct (37-47) % MCV (80-100) fL MCH (25-34) pg MCHC (32-36) g/dL RDW Std Deviation (36.4-46.3) fL RDW Coeff of Anup (11.5-14.5) % Plt Count (130-400) K/uL MPV (7.4-10.4) fL Immature Gran % (Auto) % Neut % (Auto) % Lymph % (Auto) % [place] % (Auto) % Eos % (Auto) % Baso % (Auto) % Immature Gran # (Auto) (0.00-0.02) K/uL Neut # (Auto) (1.4-6.5) K/uL Lymph # (Auto) (1.2-3.4) K/uL [place] # (Auto) (0.11-0.59) K/uL Eos # (Auto) (0-0.5) K/uL Baso # (Auto) (0-0.2) K/uL VBG pH (7.36-7.41) VBG pCO2 (38-50) mmHg VBG pO2 mmHg VBG HCO3 mmol/L VBG O2 Saturation % VBG Base Excess mEq/L Barometric Pressure mm/Hg Sodium (136-145) mmol/L Potassium (3.5-5.1) mmol/L Chloride (98-107) mmol/L Carbon Dioxide (21-32) mmol/L Anion Gap (3-11) BUN (7-18) mg/dl Creatinine (0.6-1.2) mg/dl Est Cr Clr Drug Dosing ml/min Est GFR ( Amer) Est GFR (Non-Af Amer) BUN/Creatinine Ratio (10-20) Glucose (70-99) mg/dl POC Glucose (70-99) Estimat Average Glucose mg/dl Hemoglobin A1c (4.5-5.6) % Lactate (0.4-2.0) mmol/L Calcium (8.5-10.1) mg/dl Magnesium (1.8-2.4) mg/dl Total Bilirubin (0.2-1) mg/dl AST (15-37) U/L ALT (12-78) U/L Alkaline Phosphatase (45-117) U/L Troponin I (0-0.045) ng/ml NT-Pro-B Natriuret Pep 320 (0-900) pg/ml Total Protein (6.4-8.2) gm/dl Albumin (3.4-5.0) gm/dl Globulin (2.5-4.0) gm/dl Albumin/Globulin Ratio (0.9-2) Lipase (73-393) U/L Beta-Hydroxybutyric Acd (0.2-2.81) mg/dl Procalcitonin 0.06 (0-0.5) ng/ml Specimen Hemolysis Nasal Screen MRSA (PCR) (Negative) Influenza Type A (PCR) Neg for Influ A (Neg) Influenza Type B (PCR) Neg for Influ B (Neg) 12/23/18 12/24/18 12/24/18 Range/Units 23:12 00:23 01:34 WBC (4.8-10.8) K/uL RBC (4.2-5.4) M/uL Hgb (12.0-16.0) g/dL Hct (37-47) % MCV (80-100) fL MCH (25-34) pg MCHC (32-36) g/dL RDW Std Deviation (36.4-46.3) fL RDW Coeff of Anup (11.5-14.5) % Plt Count (130-400) K/uL MPV (7.4-10.4) fL Immature Gran % (Auto) % Neut % (Auto) % Lymph % (Auto) % [place] % (Auto) % Eos % (Auto) % Baso % (Auto) % Immature Gran # (Auto) (0.00-0.02) K/uL Neut # (Auto) (1.4-6.5) K/uL Lymph # (Auto) (1.2-3.4) K/uL [place] # (Auto) (0.11-0.59) K/uL Eos # (Auto) (0-0.5) K/uL Baso # (Auto) (0-0.2) K/uL VBG pH (7.36-7.41) VBG pCO2 (38-50) mmHg VBG pO2 mmHg VBG HCO3 mmol/L VBG O2 Saturation % VBG Base Excess mEq/L Barometric Pressure mm/Hg Sodium (136-145) mmol/L Potassium (3.5-5.1) mmol/L Chloride (98-107) mmol/L Carbon Dioxide (21-32) mmol/L Anion Gap (3-11) BUN (7-18) mg/dl Creatinine (0.6-1.2) mg/dl Est Cr Clr Drug Dosing ml/min Est GFR ( Amer) Est GFR (Non-Af Amer) BUN/Creatinine Ratio (10-20) Glucose (70-99) mg/dl POC Glucose 363 H* (70-99) Estimat Average Glucose mg/dl Hemoglobin A1c (4.5-5.6) % Lactate 1.0 (0.4-2.0) mmol/L Calcium (8.5-10.1) mg/dl Magnesium (1.8-2.4) mg/dl Total Bilirubin (0.2-1) mg/dl AST (15-37) U/L ALT (12-78) U/L Alkaline Phosphatase (45-117) U/L Troponin I (0-0.045) ng/ml NT-Pro-B Natriuret Pep (0-900) pg/ml Total Protein (6.4-8.2) gm/dl Albumin (3.4-5.0) gm/dl Globulin (2.5-4.0) gm/dl Albumin/Globulin Ratio (0.9-2) Lipase (73-393) U/L Beta-Hydroxybutyric Acd (0.2-2.81) mg/dl Procalcitonin (0-0.5) ng/ml Specimen Hemolysis Nasal Screen MRSA (PCR) Negative (Negative) Influenza Type A (PCR) (Neg) Influenza Type B (PCR) (Neg) 12/24/18 12/24/18 12/24/18 Range/Units 04:44 04:44 04:44 WBC 16.24 H (4.8-10.8) K/uL RBC 4.39 (4.2-5.4) M/uL Hgb 12.7 (12.0-16.0) g/dL Hct 37.8 (37-47) % MCV 86.1 (80-100) fL MCH 28.9 (25-34) pg MCHC 33.6 (32-36) g/dL RDW Std Deviation 43.4 (36.4-46.3) fL RDW Coeff of Anup 13.8 (11.5-14.5) % Plt Count 262 (130-400) K/uL MPV 10.7 H (7.4-10.4) fL Immature Gran % (Auto) 0.4 % Neut % (Auto) 92.5 % Lymph % (Auto) 6.2 % [place] % (Auto) 0.9 % Eos % (Auto) 0.0 % Baso % (Auto) 0.0 % Immature Gran # (Auto) 0.06 H (0.00-0.02) K/uL Neut # (Auto) 15.04 H (1.4-6.5) K/uL Lymph # (Auto) 1.00 L (1.2-3.4) K/uL [place] # (Auto) 0.14 (0.11-0.59) K/uL Eos # (Auto) 0.00 (0-0.5) K/uL Baso # (Auto) 0.00 (0-0.2) K/uL VBG pH (7.36-7.41) VBG pCO2 (38-50) mmHg VBG pO2 mmHg VBG HCO3 mmol/L VBG O2 Saturation % VBG Base Excess mEq/L Barometric Pressure mm/Hg Sodium 136 (136-145) mmol/L Potassium 3.9 (3.5-5.1) mmol/L Chloride 106 (98-107) mmol/L Carbon Dioxide 26 (21-32) mmol/L Anion Gap 4.0 (3-11) BUN 9 (7-18) mg/dl Creatinine 0.69 (0.6-1.2) mg/dl Est Cr Clr Drug Dosing 140.4 ml/min Est GFR ( Amer) 116.0 Est GFR (Non-Af Amer) 100.1 BUN/Creatinine Ratio 12.6 (10-20) Glucose 321 H* (70-99) mg/dl POC Glucose (70-99) Estimat Average Glucose 194 mg/dl Hemoglobin A1c 8.4 H (4.5-5.6) % Lactate (0.4-2.0) mmol/L Calcium 8.5 (8.5-10.1) mg/dl Magnesium 1.9 (1.8-2.4) mg/dl Total Bilirubin (0.2-1) mg/dl AST (15-37) U/L ALT (12-78) U/L Alkaline Phosphatase (45-117) U/L Troponin I (0-0.045) ng/ml NT-Pro-B Natriuret Pep (0-900) pg/ml Total Protein (6.4-8.2) gm/dl Albumin (3.4-5.0) gm/dl Globulin (2.5-4.0) gm/dl Albumin/Globulin Ratio (0.9-2) Lipase (73-393) U/L Beta-Hydroxybutyric Acd 1.12 (0.2-2.81) mg/dl Procalcitonin (0-0.5) ng/ml Specimen Hemolysis Nasal Screen MRSA (PCR) (Negative) Influenza Type A (PCR) (Neg) Influenza Type B (PCR) (Neg) 12/24/18 12/24/18 Range/Units 07:15 11:00 WBC (4.8-10.8) K/uL RBC (4.2-5.4) M/uL Hgb (12.0-16.0) g/dL Hct (37-47) % MCV (80-100) fL MCH (25-34) pg MCHC (32-36) g/dL RDW Std Deviation (36.4-46.3) fL RDW Coeff of Anup (11.5-14.5) % Plt Count (130-400) K/uL MPV (7.4-10.4) fL Immature Gran % (Auto) % Neut % (Auto) % Lymph % (Auto) % [place] % (Auto) % Eos % (Auto) % Baso % (Auto) % Immature Gran # (Auto) (0.00-0.02) K/uL Neut # (Auto) (1.4-6.5) K/uL Lymph # (Auto) (1.2-3.4) K/uL [place] # (Auto) (0.11-0.59) K/uL Eos # (Auto) (0-0.5) K/uL Baso # (Auto) (0-0.2) K/uL VBG pH (7.36-7.41) VBG pCO2 (38-50) mmHg VBG pO2 mmHg VBG HCO3 mmol/L VBG O2 Saturation % VBG Base Excess mEq/L Barometric Pressure mm/Hg Sodium (136-145) mmol/L Potassium (3.5-5.1) mmol/L Chloride (98-107) mmol/L Carbon Dioxide (21-32) mmol/L Anion Gap (3-11) BUN (7-18) mg/dl Creatinine (0.6-1.2) mg/dl Est Cr Clr Drug Dosing ml/min Est GFR ( Amer) Est GFR (Non-Af Amer) BUN/Creatinine Ratio (10-20) Glucose (70-99) mg/dl POC Glucose 235 H 244 H (70-99) Estimat Average Glucose mg/dl Hemoglobin A1c (4.5-5.6) % Lactate (0.4-2.0) mmol/L Calcium (8.5-10.1) mg/dl Magnesium (1.8-2.4) mg/dl Total Bilirubin (0.2-1) mg/dl AST (15-37) U/L ALT (12-78) U/L Alkaline Phosphatase (45-117) U/L Troponin I (0-0.045) ng/ml NT-Pro-B Natriuret Pep (0-900) pg/ml Total Protein (6.4-8.2) gm/dl Albumin (3.4-5.0) gm/dl Globulin (2.5-4.0) gm/dl Albumin/Globulin Ratio (0.9-2) Lipase (73-393) U/L Beta-Hydroxybutyric Acd (0.2-2.81) mg/dl Procalcitonin (0-0.5) ng/ml Specimen Hemolysis Nasal Screen MRSA (PCR) (Negative) Influenza Type A (PCR) (Neg) Influenza Type B (PCR) (Neg) Imaging Data Radiologist's Impression: Radiology results as stated below per my review and the radiologist's interpretation: XR chest 1V portable HISTORY: 53 years-old Female Chest Pain acute atypical chest pain COMPARISON: Chest radiograph 12/01/2012 TECHNIQUE: Portable AP view of the chest FINDINGS: Cardiac mediastinal and hilar silhouettes are unchanged. No pneumothorax, pleural effusion, focal airspace consolidation or overt pulmonary edema. Bones of the chest appear grossly intact. IMPRESSION: No acute process. The above report was generated using voice recognition software. It may contain grammatical, syntax or spelling errors. Electronically signed by: Kelby Ding M.D. 12/23/2018 8:11 PM ECG Data Attestation: I personally reviewed and interpreted this ECG as follows: Indication: SOB/dyspnea Rate (beats per minute): 95 Rhythm: normal sinus Findings: + other (LVH, non-specific ST and T-wave abnormality) and + acute ischemic change Comparison ECG Date: from (06/07/2017) Change: no significant change Blood Pressure Blood Pressure Findings: Elevated blood pressure Blood Pressure Disposition: further management by hospitalist [facility] Narrative The patient is a 53-year-old woman with a past medical history of asthma who presents emergency department with worsening cough congestion and sputum production over the past several days worsening today per hpi. Arrival the patient arrives in moderate respiratory distress with respiratory rate in the 30s with labored breathing and accessory muscle use. Patient is afebrile with heart rate in the 90s-100s and hypertensive 190s/80s. Patient has diminished breath sounds throughout with scattered wheezes. Patient was placed immediately on BiPAP given her work of breathing and given given continuous DuoNeb's with steroids. EKG without evidence of overt acute ischemia. Chest x-ray without acute process. WBC 17K. H/H and platelets wnl. VBG unremarkable. Chemistry without acidosis. Magnesium 1.7 with repletion provided. LFTs and electrolytes unremarkable. Troponin 0.017, within normal limits. BNP 300 though in obese patient. Flu negative. Patient reevaluated after initial treatment and appearing significantly improved with respiratory rate 15-17 and improved breath sounds. However patient was also reporting back pain associated with her shortness of breath and therefore CT was performed which was negative for PE but did demonstrate multifocal pneumonia. Blood cultures were drawn and patient was ordered for ceftriaxone and doxycycline. Procalcitonin and lactate wnl, sepsis less likely. Case was discussed with Dr. Cancino, [facility] [place] hospitalist, who will evaluate the patient for admission. Impression & Plan Respiratory failure, Multifocal pneumonia Critical Care Time I have personally spent greater than 65 minutes of critical care time in the direct management of this patient. This includes bedside care, interpretation of diagnostic studies, and testing, discussion with consultants, patient, and family members, and other required patient management activities. This 65 tien niels is in excess of all separately billable procedures. Critical Care Time: Yes Total Critical Care Time: 65 Discharge Plan Visit Data *Final* Discharge Date/Time: 12/23/18 23:48 Chief Complaint: Shortness of Breath/Dyspnea Stated Complaint: COUGH, SOB, BACK PAIN ED Provider: Curt Silvestre Discharge Problem: Respiratory failure, Multifocal pneumonia Patient Disposition: Admitted As Inpatient Discharge Instructions Interventions: ED Discharge Assessment Last Done: 12/23/18 23:48 The scribe's documentation has been prepared under my direction and personally reviewed by me in its entirety. I confirm that the note above accurately reflects all work, treatment, procedures, and medical decision making performed by me.
[2018-12-24] MEDS ORDERED: ALBUTEROL 0.083% NEBU SOLN 3 ML VIAL NEB PRN (00:22)
[2018-12-24] MEDS ORDERED: ICU PROTOCOL FOR HYPERGLYCEMIA PRN (00:22)
[2018-12-24] MEDS ORDERED: MoRPHine SULFATE 4 MG/ML 1 ML CARP\\VIAL IV PRN (00:22)
[2018-12-24] MEDS ORDERED: NSS + 20MEQ KCL 20 MEQ/1,000 ML BAG IV SCH (02:00)
[2018-12-24] MEDS ORDERED: INSULIN ASPART 100 UNITS/ML 3 ML PEN SC STA ×2 (02:12→05:41)
[2018-12-24] MEDS: methylPREDNISolone 60 MG in SYRINGE 0 ML IV SCH ×4 (03:04→20:44)
[2018-12-24 05:00] LABS: Hematocrit (blood only) 37.8 % (37-47); Hemoglobin 12.7 g/dL (12.0-16.0); Immature Granulocytes # (auto) 0.06 K/uL (0.00-0.02); Immature Granulocytes % (auto) 0.4 %; Lymphocytes % (auto) 6.2 %; Mean Corpuscular Hgb Conc 33.6 g/dL (32-36); Mean Corpuscular Volume 86.1 fL (80-100); Mean Platelet Volume 10.7 fL (7.4-10.4); Monocytes # (auto) 0.14 K/uL (0.11-0.59); Monocytes % (auto) 0.9 %; Neutrophils # (auto) 15.04 K/uL (1.4-6.5); Neutrophils % (auto) 92.5 %; Platelet Count 262 K/uL (130-400); RDW Coefficient of Variation 13.8 % (11.5-14.5); RDW Standard Deviation 43.4 fL (36.4-46.3); Red Blood Count 4.39 M/uL (4.2-5.4); White Blood Count 16.24 K/uL (4.8-10.8)
[2018-12-24 05:26] LABS: BUN Creatinine Ratio 12.6 (10-20); Calcium 8.5 mg/dl (8.5-10.1); Creatinine Clr Calc Pharmacy 140.4 ml/min; Est GFR (Non-African American) 100.1; Magnesium 1.9 mg/dl (1.8-2.4); Potassium 3.9 mmol/L (3.5-5.1)
[2018-12-24] MEDS ORDERED: INSULIN GLARGINE SOLOSTAR 100 UNITS/ML 3 ML PEN SQ STA (05:35)
[2018-12-24 05:38] LABS: Beta-Hydroxybutyrate 1.12 mg/dl (0.2-2.81)
[2018-12-24] MEDS ORDERED: PHARMACY GLYCEMIC MGMT CONSULT PRN (05:44)
[2018-12-24] MEDS ORDERED: INSULIN HUMAN REGULAR IV BOLUS 10 UNITS in SYRINGE 0 ML IV ONE (05:45)
[2018-12-24 05:59] LABS: Estimated Average Glucose 194 mg/dl; Hemoglobin A1C 8.4 % (4.5-5.6)
[2018-12-24] MEDS: ALBUT/IPRATROP 3MG/0.5MG NEB 3 ML VIAL NEB SCH ×4 (07:28→19:20)
[2018-12-24] MEDS: INSULIN ASPART 100 UNITS/ML 3 ML PEN SC SCH ×4 (07:54→20:46)
[2018-12-24] MEDS: METOPROLOL SUCC 25MG EXT REL TAB PO SCH (07:55)
[2018-12-24] MEDS: LISINOPRIL 10 MG TAB PO SCH (07:55)
[2018-12-24] MEDS: HydrALAZINE TAB 50 MG TAB PO SCH ×3 (07:56→20:47)
[2018-12-24] MEDS: GABAPENTIN 300 MG CAP PO SCH ×4 (07:56→20:47)
[2018-12-24] MEDS: FLUOXETINE HCL 20 MG CAP PO SCH ×3 (07:56→12:14)
--- NOTE | 2018-12-24 08:41 | Family Medicine Progress Note ---
Date of Service December 24, 2018 Assessment & Plan (1) Multifocal pneumonia: 53 y/o F Hx systolic CHF, HTN, obese, depression, asthma. Presents with progressive SOB, back pain and a productive cough x 4 days. Presented to the ER in respiratory distress. Intubation was initially considered, however, she responded well to nebulizers and BiPAP. A CTA was obtained to r/o PE. No PE was apparent, however, this did demonstrate multifocal PNM. Labs are notable for mild leukocytosis. An EKG shows slight QT prolongation. 1) PNM and asthma exacerbation with respiratory distress/failure -admitted to the ICU because the patient required BiPAP, started on ceftriaxone and doxycycline secondary to QT prolongation. Initially required BiPAP then nasal cannula oxygen was weaned to room air this morning. Significant asthma history, uses no controller medications. -CTX and doxy day 2 for pnm 2/2 -qt prolongation -Continue IV Methylprednisolone 60mg q6h -initially on bipap now satting 96% on RA -Downgrade from the ICU today to general medical floor -patient has good po intake d/c fluid given hx chf -Patient will need asthma evaluation on discharge, consider discharging on c ontroller medication 2) History of CHF - states her EF may have recovered to near-normal with treatment of her HTN - cont Lisinopril, Toprol. 3) Hyperglycemia: Patient is morbidly obese and has poor diet although recently she informed us she has been making efforts to improve her diet. -Most recent glucose was 244 she had a high of 363 this morning, likely has baseline insulin resistance however glucoses more profoundly elevated secondary to steroid use -HgbA1c is 8.4 getting poor sugar control over the last 3 months -We will consider discharging her on some insulin regimen, she definitely needs follow-up with outpatient physician regarding glycemic control -glycemic consult placed per following recs 4) Depression - cont Fluoxetine - Gabapentin for back pain 5) Morbidly obese -Outpt sleep study -Lifestyle counseling Full code - Heparin prophylaxis Total time for this admit including review of labs, meds, imaging, records - discussion with pt, ER attending, pier master - inc critical care time 45 min Supervising Physician Co-Signing Physician Notes Attending attestation Pt seen and examined in concert with Dr. Haskins. In agreement with the documented findings as noted in the resident documentation with any exceptions or additions as noted here. Resting in bed with improvement in cough and shortness of breath. Asthma is a yearly recurrence at season changes managed with albuterol MDI/neb 2-3 times per day. Last hospitalization/ED use was approx 5 years ago. Former PCP took her off controllers because "it was her gallbladder (it wasn't)" but she would not object to using them. No personal history of DMII reported. Has been trying to lose weight consistently with dietary changes with some impact and reports it does leave her feeling better overall. Open to further assistance and intervention. On examination, lungs are diffusely rhoncorous with basilar rales on the left, S1/S2 nl RRR no MCG, abd NT/ND BS +ve Asthma exacerbation with community acquired PNA - continue duoneb therapy, solumedrol. Tolerating cetriaxone and doxycycline well. Transition to telemetry floor Hypertension - continue lisinopril and metformin. Would likely recommend increasing lisinopril if BP remains elevated as pulmonary sx resolve. Hydralazine PRN New diagnosis of DMII, uncontrolled - A1c 8.5% - lantus and aspart therapy in hospital. Metformin at discharge. Counseling and diabetic education while admitted. Else see resident documentation as noted. Subjective Patient laying in bed this morning in no acute distress. Reports respiratory symptoms have improved significantly since yesterday evening. Of note she was unaware of why she was admitted I informed her that she had a pneumonia. Overnight she required BiPAP subsequently downgraded graded to 3 L of oxygen and is now satting well on room air. Further history of the patient's asthma was obtained. She was using controller medications approximately 15 years ago prior to moving to [facility]. When she relocated to [place] she had episode of passing out after taking her inhaler and was subsequently diagnosed with cholecystitis and cholecystectomy performed. In the postoperative period the patient was told that she no longer needed patient as her symptoms are due to cholecystitis. The patient uses albuterol and albuterol nebulizer as needed for symptoms at home, requiring frequent usage during the spring and fall in approximately every other week during the summer and winter. She follows with [facility] when she is feeling better peak flow should be obtained in some form of controller medication initiated. We also reviewed the patient's Hgb A1c with her, we talked about lifestyle modifications and potentially needing to initiate therapy. The patient informed us that she has made a number of lifestyle modifications including changing her diet specifically breakfast and lunch, but has been struggling recently due to stress at work and grandchildren's desire to eat pizza. deferred further conversation pending how her sugars do well hospitalized. All questions were answered no acute concerns at present plan to transfer the patient out of the ICU today. Admission HPI:53 y/o F Hx systolic CHF, HTN, obese, depression, asthma. Presents with progressive SOB, back pain and a productive cough x 4 days. Presented to the ER in respiratory distress. Intubation was initially considered, however, she responded well to nebulizers and BiPAP. A CTA was obtained to r/o PE. No PE was apparent, however, this did demonstrate multifocal PNM. Labs are notable for mild leukocytosis. An EKG shows slight QT prolongation. Physical Exam Physical Exam: General: Morbidly obese female in no acute distress atraumatic normocephalic Eyes: EOMI Neck: Normal to visual inspection did not appreciate JVD Chest: Poor air movement, diffuse wheezing, rhonchi present bilaterally Cardiac:Regular rate and rhythm, normal S1-S2, I did not appreciate any murmurs rubs or gallops GI: Normal bowel sounds, nontender nondistended MSK: Moves all extremities, reports pain in her back and left leg Skin: Warm dry and intact Neuro: AAO x4 Psych: Calm, cooperative, humorous Results & Data Vital Signs (Past 12 Hours) Vital Signs Temp Pulse Pulse Resp BP BP Pulse Ox 12/24/18 08:00 36.7 C 88 19 166/73 H 97 12/24/18 07:28 92 H 18 99 12/24/18 07:00 66 20 193/85 H 97 12/24/18 05:32 97 H 24 97 12/24/18 05:06 74 24 181/81 H 100 12/24/18 04:02 75 27 H 96 12/24/18 04:01 75 25 H 164/73 H 94 12/24/18 04:00 88 22 96 12/24/18 03:01 79 28 H 155/62 H 96 12/24/18 03:00 78 26 H 97 12/24/18 02:01 87 30 H 179/81 H 98 12/24/18 02:00 86 27 H 98 12/24/18 01:30 95 H 23 100 12/24/18 01:01 103 H 33 H 170/74 H 98 12/24/18 01:00 91 H 24 99 12/24/18 00:52 36.9 C 94 H 24 173/75 H 98 12/24/18 00:34 94 H 26 H 97 12/24/18 00:30 36.9 C 103 H 38 H 96 12/24/18 00:28 94 H 27 H 173/75 H 97 12/24/18 00:25 94 H 24 12/24/18 00:22 12/23/18 23:48 95 H 22 176/74 H 67 L 12/23/18 23:41 91 H 28 H 176/74 H 97 12/23/18 23:30 99 H 33 H 91 12/23/18 23:02 94 H 24 195/85 H 96 12/23/18 23:00 91 H 25 H 97 12/23/18 22:32 105 H 33 H 181/92 H 95 12/23/18 22:00 104 H 23 90 12/23/18 21:50 107 H 29 H 98 12/23/18 21:30 102 H 27 H 193/96 H 98 12/23/18 21:27 99 H 23 187/92 H 98 Pulse Ox 12/24/18 08:00 12/24/18 07:28 12/24/18 07:00 12/24/18 05:32 12/24/18 05:06 12/24/18 04:02 12/24/18 04:01 12/24/18 04:00 12/24/18 03:01 12/24/18 03:00 12/24/18 02:01 12/24/18 02:00 12/24/18 01:30 12/24/18 01:01 12/24/18 01:00 12/24/18 00:52 12/24/18 00:34 12/24/18 00:30 12/24/18 00:28 12/24/18 00:25 12/24/18 00:22 98 12/23/18 23:48 12/23/18 23:41 12/23/18 23:30 12/23/18 23:02 12/23/18 23:00 12/23/18 22:32 12/23/18 22:00 12/23/18 21:50 12/23/18 21:30 12/23/18 21:27 Laboratory Results 12/24/18 04:44 12/24/18 04:44 12/24/18 12/24/18 12/24/18 Range/Units 07:15 04:44 04:44 WBC (4.8-10.8) K/uL RBC (4.2-5.4) M/uL Hgb (12.0-16.0) g/dL Hct (37-47) % MCV (80-100) fL MCH (25-34) pg MCHC (32-36) g/dL RDW Std Deviation (36.4-46.3) fL RDW Coeff of Anup (11.5-14.5) % Plt Count (130-400) K/uL MPV (7.4-10.4) fL Immature Gran % (Auto) % Neut % (Auto) % Lymph % (Auto) % [place] % (Auto) % Eos % (Auto) % Baso % (Auto) % Immature Gran # (Auto) (0.00-0.02) K/uL Neut # (Auto) (1.4-6.5) K/uL Lymph # (Auto) (1.2-3.4) K/uL [place] # (Auto) (0.11-0.59) K/uL Eos # (Auto) (0-0.5) K/uL Baso # (Auto) (0-0.2) K/uL VBG pH (7.36-7.41) VBG pCO2 (38-50) mmHg VBG pO2 mmHg VBG HCO3 mmol/L VBG O2 Saturation % VBG Base Excess mEq/L Barometric Pressure mm/Hg Sodium 136 (136-145) mmol/L Potassium 3.9 (3.5-5.1) mmol/L Chloride 106 (98-107) mmol/L Carbon Dioxide 26 (21-32) mmol/L Anion Gap 4.0 (3-11) BUN 9 (7-18) mg/dl Creatinine 0.69 (0.6-1.2) mg/dl Est Cr Clr Drug Dosing 140.4 ml/min Est GFR ( Amer) 116.0 Est GFR (Non-Af Amer) 100.1 BUN/Creatinine Ratio 12.6 (10-20) Glucose 321 H* (70-99) mg/dl POC Glucose 235 H (70-99) Estimat Average Glucose 194 mg/dl Hemoglobin A1c 8.4 H (4.5-5.6) % Lactate (0.4-2.0) mmol/L Calcium 8.5 (8.5-10.1) mg/dl Magnesium 1.9 (1.8-2.4) mg/dl Total Bilirubin (0.2-1) mg/dl AST (15-37) U/L ALT (12-78) U/L Alkaline Phosphatase (45-117) U/L Troponin I (0-0.045) ng/ml NT-Pro-B Natriuret Pep (0-900) pg/ml Total Protein (6.4-8.2) gm/dl Albumin (3.4-5.0) gm/dl Globulin (2.5-4.0) gm/dl Albumin/Globulin Ratio (0.9-2) Lipase (73-393) U/L Beta-Hydroxybutyric Acd 1.12 (0.2-2.81) mg/dl Procalcitonin (0-0.5) ng/ml Specimen Hemolysis Nasal Screen MRSA (PCR) (Negative) Influenza Type A (PCR) (Neg) Influenza Type B (PCR) (Neg) 12/24/18 12/24/18 12/24/18 Range/Units 04:44 01:34 00:23 WBC 16.24 H (4.8-10.8) K/uL RBC 4.39 (4.2-5.4) M/uL Hgb 12.7 (12.0-16.0) g/dL Hct 37.8 (37-47) % MCV 86.1 (80-100) fL MCH 28.9 (25-34) pg MCHC 33.6 (32-36) g/dL RDW Std Deviation 43.4 (36.4-46.3) fL RDW Coeff of Anup 13.8 (11.5-14.5) % Plt Count 262 (130-400) K/uL MPV 10.7 H (7.4-10.4) fL Immature Gran % (Auto) 0.4 % Neut % (Auto) 92.5 % Lymph % (Auto) 6.2 % [place] % (Auto) 0.9 % Eos % (Auto) 0.0 % Baso % (Auto) 0.0 % Immature Gran # (Auto) 0.06 H (0.00-0.02) K/uL Neut # (Auto) 15.04 H (1.4-6.5) K/uL Lymph # (Auto) 1.00 L (1.2-3.4) K/uL [place] # (Auto) 0.14 (0.11-0.59) K/uL Eos # (Auto) 0.00 (0-0.5) K/uL Baso # (Auto) 0.00 (0-0.2) K/uL VBG pH (7.36-7.41) VBG pCO2 (38-50) mmHg VBG pO2 mmHg VBG HCO3 mmol/L VBG O2 Saturation % VBG Base Excess mEq/L Barometric Pressure mm/Hg Sodium (136-145) mmol/L Potassium (3.5-5.1) mmol/L Chloride (98-107) mmol/L Carbon Dioxide (21-32) mmol/L Anion Gap (3-11) BUN (7-18) mg/dl Creatinine (0.6-1.2) mg/dl Est Cr Clr Drug Dosing ml/min Est GFR ( Amer) Est GFR (Non-Af Amer) BUN/Creatinine Ratio (10-20) Glucose (70-99) mg/dl POC Glucose 363 H* (70-99) Estimat Average Glucose mg/dl Hemoglobin A1c (4.5-5.6) % Lactate (0.4-2.0) mmol/L Calcium (8.5-10.1) mg/dl Magnesium (1.8-2.4) mg/dl Total Bilirubin (0.2-1) mg/dl AST (15-37) U/L ALT (12-78) U/L Alkaline Phosphatase (45-117) U/L Troponin I (0-0.045) ng/ml NT-Pro-B Natriuret Pep (0-900) pg/ml Total Protein (6.4-8.2) gm/dl Albumin (3.4-5.0) gm/dl Globulin (2.5-4.0) gm/dl Albumin/Globulin Ratio (0.9-2) Lipase (73-393) U/L Beta-Hydroxybutyric Acd (0.2-2.81) mg/dl Procalcitonin (0-0.5) ng/ml Specimen Hemolysis Nasal Screen MRSA (PCR) Negative (Negative) Influenza Type A (PCR) (Neg) Influenza Type B (PCR) (Neg) 12/23/18 12/23/18 12/23/18 Range/Units 23:12 20:50 20:28 WBC (4.8-10.8) K/uL RBC (4.2-5.4) M/uL Hgb (12.0-16.0) g/dL Hct (37-47) % MCV (80-100) fL MCH (25-34) pg MCHC (32-36) g/dL RDW Std Deviation (36.4-46.3) fL RDW Coeff of Anup (11.5-14.5) % Plt Count (130-400) K/uL MPV (7.4-10.4) fL Immature Gran % (Auto) % Neut % (Auto) % Lymph % (Auto) % [place] % (Auto) % Eos % (Auto) % Baso % (Auto) % Immature Gran # (Auto) (0.00-0.02) K/uL Neut # (Auto) (1.4-6.5) K/uL Lymph # (Auto) (1.2-3.4) K/uL [place] # (Auto) (0.11-0.59) K/uL Eos # (Auto) (0-0.5) K/uL Baso # (Auto) (0-0.2) K/uL VBG pH (7.36-7.41) VBG pCO2 (38-50) mmHg VBG pO2 mmHg VBG HCO3 mmol/L VBG O2 Saturation % VBG Base Excess mEq/L Barometric Pressure mm/Hg Sodium (136-145) mmol/L Potassium (3.5-5.1) mmol/L Chloride (98-107) mmol/L Carbon Dioxide (21-32) mmol/L Anion Gap (3-11) BUN (7-18) mg/dl Creatinine (0.6-1.2) mg/dl Est Cr Clr Drug Dosing ml/min Est GFR ( Amer) Est GFR (Non-Af Amer) BUN/Creatinine Ratio (10-20) Glucose (70-99) mg/dl POC Glucose (70-99) Estimat Average Glucose mg/dl Hemoglobin A1c (4.5-5.6) % Lactate 1.0 (0.4-2.0) mmol/L Calcium (8.5-10.1) mg/dl Magnesium (1.8-2.4) mg/dl Total Bilirubin (0.2-1) mg/dl AST (15-37) U/L ALT (12-78) U/L Alkaline Phosphatase (45-117) U/L Troponin I (0-0.045) ng/ml NT-Pro-B Natriuret Pep (0-900) pg/ml Total Protein (6.4-8.2) gm/dl Albumin (3.4-5.0) gm/dl Globulin (2.5-4.0) gm/dl Albumin/Globulin Ratio (0.9-2) Lipase (73-393) U/L Beta-Hydroxybutyric Acd (0.2-2.81) mg/dl Procalcitonin 0.06 (0-0.5) ng/ml Specimen Hemolysis Nasal Screen MRSA (PCR) (Negative) Influenza Type A (PCR) Neg for Influ A (Neg) Influenza Type B (PCR) Neg for Influ B (Neg) 12/23/18 12/23/18 12/23/18 Range/Units 20:28 20:28 20:28 WBC 17.73 H (4.8-10.8) K/uL RBC 4.56 (4.2-5.4) M/uL Hgb 13.5 (12.0-16.0) g/dL Hct 39.6 (37-47) % MCV 86.8 (80-100) fL MCH 29.6 (25-34) pg MCHC 34.1 (32-36) g/dL RDW Std Deviation 43.6 (36.4-46.3) fL RDW Coeff of Anup 13.9 (11.5-14.5) % Plt Count 282 (130-400) K/uL MPV 11.0 H (7.4-10.4) fL Immature Gran % (Auto) 0.6 % Neut % (Auto) 71.9 % Lymph % (Auto) 20.0 % [place] % (Auto) 6.6 % Eos % (Auto) 0.8 % Baso % (Auto) 0.1 % Immature Gran # (Auto) 0.10 H (0.00-0.02) K/uL Neut # (Auto) 12.76 H (1.4-6.5) K/uL Lymph # (Auto) 3.54 H (1.2-3.4) K/uL [place] # (Auto) 1.17 H (0.11-0.59) K/uL Eos # (Auto) 0.14 (0-0.5) K/uL Baso # (Auto) 0.02 (0-0.2) K/uL VBG pH (7.36-7.41) VBG pCO2 (38-50) mmHg VBG pO2 mmHg VBG HCO3 mmol/L VBG O2 Saturation % VBG Base Excess mEq/L Barometric Pressure mm/Hg Sodium 140 (136-145) mmol/L Potassium 3.6 (3.5-5.1) mmol/L Chloride 107 (98-107) mmol/L Carbon Dioxide 26 (21-32) mmol/L Anion Gap 7.0 (3-11) BUN 9 (7-18) mg/dl Creatinine 0.64 (0.6-1.2) mg/dl Est Cr Clr Drug Dosing 150.1 ml/min Est GFR ( Amer) 118.9 Est GFR (Non-Af Amer) 102.6 BUN/Creatinine Ratio 14.0 (10-20) Glucose 156 H (70-99) mg/dl POC Glucose (70-99) Estimat Average Glucose mg/dl Hemoglobin A1c (4.5-5.6) % Lactate (0.4-2.0) mmol/L Calcium 8.7 (8.5-10.1) mg/dl Magnesium 1.7 L (1.8-2.4) mg/dl Total Bilirubin 0.2 (0.2-1) mg/dl AST 13 L (15-37) U/L ALT 17 (12-78) U/L Alkaline Phosphatase 90 (45-117) U/L Troponin I 0.017 (0-0.045) ng/ml NT-Pro-B Natriuret Pep 320 (0-900) pg/ml Total Protein 7.5 (6.4-8.2) gm/dl Albumin 3.2 L (3.4-5.0) gm/dl Globulin 4.3 H (2.5-4.0) gm/dl Albumin/Globulin Ratio 0.7 L (0.9-2) Lipase 164 (73-393) U/L Beta-Hydroxybutyric Acd (0.2-2.81) mg/dl Procalcitonin (0-0.5) ng/ml Specimen Hemolysis Nasal Screen MRSA (PCR) (Negative) Influenza Type A (PCR) (Neg) Influenza Type B (PCR) (Neg) 12/23/18 Range/Units 20:24 WBC (4.8-10.8) K/uL RBC (4.2-5.4) M/uL Hgb (12.0-16.0) g/dL Hct (37-47) % MCV (80-100) fL MCH (25-34) pg MCHC (32-36) g/dL RDW Std Deviation (36.4-46.3) fL RDW Coeff of Anup (11.5-14.5) % Plt Count (130-400) K/uL MPV (7.4-10.4) fL Immature Gran % (Auto) % Neut % (Auto) % Lymph % (Auto) % [place] % (Auto) % Eos % (Auto) % Baso % (Auto) % Immature Gran # (Auto) (0.00-0.02) K/uL Neut # (Auto) (1.4-6.5) K/uL Lymph # (Auto) (1.2-3.4) K/uL [place] # (Auto) (0.11-0.59) K/uL Eos # (Auto) (0-0.5) K/uL Baso # (Auto) (0-0.2) K/uL VBG pH 7.44 H (7.36-7.41) VBG pCO2 40 (38-50) mmHg VBG pO2 56 mmHg VBG HCO3 26 mmol/L VBG O2 Saturation 89.1 % VBG Base Excess 1.7 mEq/L Barometric Pressure 720.5 mm/Hg Sodium (136-145) mmol/L Potassium (3.5-5.1) mmol/L Chloride (98-107) mmol/L Carbon Dioxide (21-32) mmol/L Anion Gap (3-11) BUN (7-18) mg/dl Creatinine (0.6-1.2) mg/dl Est Cr Clr Drug Dosing ml/min Est GFR ( Amer) Est GFR (Non-Af Amer) BUN/Creatinine Ratio (10-20) Glucose (70-99) mg/dl POC Glucose (70-99) Estimat Average Glucose mg/dl Hemoglobin A1c (4.5-5.6) % Lactate (0.4-2.0) mmol/L Calcium (8.5-10.1) mg/dl Magnesium (1.8-2.4) mg/dl Total Bilirubin (0.2-1) mg/dl AST (15-37) U/L ALT (12-78) U/L Alkaline Phosphatase (45-117) U/L Troponin I (0-0.045) ng/ml NT-Pro-B Natriuret Pep (0-900) pg/ml Total Protein (6.4-8.2) gm/dl Albumin (3.4-5.0) gm/dl Globulin (2.5-4.0) gm/dl Albumin/Globulin Ratio (0.9-2) Lipase (73-393) U/L Beta-Hydroxybutyric Acd (0.2-2.81) mg/dl Procalcitonin (0-0.5) ng/ml Specimen Hemolysis Nasal Screen MRSA (PCR) (Negative) Influenza Type A (PCR) (Neg) Influenza Type B (PCR) (Neg) Medications Administered Current Inpatient Medications Albuterol (Duoneb) 3 ml NEB QIDR [facility] Stop: 01/23/19 07:59 Last Admin: 12/24/18 07:28 Dose: 3 ml Documented by: Albuterol (Ventolin 0.083% 2.5mg/3ml) 2.5 mg NEB Q4H PRN PRN Reason: Shortness Of Breath Stop: 01/23/19 00:21 Fluoxetine HCl (Prozac) 20 mg PO DAILY [facility] Stop: 01/23/19 08:59 Last Admin: 12/24/18 08:00 Dose: Not Given Documented by: Gabapentin (Neurontin) 300 mg PO TID [facility] Stop: 01/23/19 08:59 Last Admin: 12/24/18 08:00 Dose: Not Given Documented by: Hydralazine HCl (Apresoline) 50 mg PO TID [facility] Stop: 01/23/19 08:59 Last Admin: 12/24/18 07:56 Dose: 50 mg Documented by: Ceftriaxone Sodium 2,000 mg/ (Dextrose) 70 mls @ 100 mls/hr IV Q24H [facility]; Protocol Stop: 12/30/18 19:59 Methylprednisolone 60 mg/ (Syringe) 0.96 mls @ 1.5 mls/min IV Q6H [facility] Stop: 01/23/19 02:59 Last Admin: 12/24/18 07:55 Dose: 1.5 mls/min Documented by: Doxycycline Hyclate 100 mg/ (Dextrose) 110 mls @ 50 mls/hr IV Q12H [facility] Stop: 12/31/18 09:59 Potassium Chloride/Sodium Chloride (Normal Saline W/20 Meq Kcl) 20 meq in 1,000 mls @ 100 mls/hr IV .Q10H [facility] Stop: 12/24/18 11:59 Last Admin: 12/24/18 02:16 Dose: 100 mls/hr Documented by: Insulin Aspart (Novolog Flexpen) 0 units SC ACHS [facility] Stop: 01/23/19 07:29 Last Admin: 12/24/18 07:54 Dose: 10 units Documented by: Insulin Glargine (Lantus Solostar Pen) 0 units SC Q12H [facility]; Protocol Stop: 01/23/19 19:59 Ioversol (Optiray 320 125ml) 116 ml IV ONCE PRN PRN Reason: Interaction Checking Stop: 12/27/18 22:21 Last Admin: 12/23/18 22:23 Dose: 116 ml Documented by: Lisinopril (Zestril) 10 mg PO DAILY [facility] Stop: 01/23/19 08:59 Last Admin: 12/24/18 07:55 Dose: 10 mg Documented by: Metoprolol Succinate (Toprol Xl) 25 mg PO DAILY [facility] Stop: 01/23/19 08:59 Last Admin: 12/24/18 07:55 Dose: 25 mg Documented by: Miscellaneous ([facility] Protocol For Hyperglycemia) 1 ea N/A PRN PRN; Protocol PRN Reason: Hyperglycemia Protocol Stop: 12/26/18 00:21 Miscellaneous Information (Consult Glycemic Management Pharmacy) 1 ea N/A UD PRN PRN Reason: Consult Stop: 01/23/19 05:43 Morphine Sulfate (Morphine Sulfate) 4 mg IV Q4H PRN PRN Reason: Pain Stop: 01/07/19 00:21 Last Admin: 12/24/18 02:16 Dose: 4 mg Documented by: Resident Activity Tracking Resident Involvement: Resident Care Provided Care Provided: Adult Hospital Medicine
--- NOTE | 2018-12-24 09:51 | Critical Care Consultation ---
Date of Consultation December 24, 2018 Assessment & Plan (1) Respiratory failure: Impression: 1. Asthma exacerbation. The patient is not taking long-acting controller medicine. She does have only albuterol nebulizer and inhaler at home. 2. Morbid obesity with likely obstructive sleep apnea. 3. The patient has history of CHF however I do not have any records on her. 4. Poorly controlled hypertension. 5. Community-acquired pneumonia. 6. Acute hypoxic respiratory failure, responding to NPPV. Plan: 1. Continue current dose of Solu-Medrol. 2. Obtain echocardiogram. 3. Add controller bronchodilator. 4. She will need polysomnography as an outpatient. 5. Blood pressure controlled. 6. BiPAP nocturnally. 7. Glucose controlled. 8. DVT prophylaxis. 9. Ambulate the patient. 10. Transfer the patient to regular floor. Case discussed with the staff on rounds in details and with the patient, critical care time spent with the patient was 40 minutes. History of Present Illness Reason for Consultation: Asthma exacerbation with acute respiratory failure. Requesting Physician: Dr. Zavaleta Attending Physician: Armand Zavaleta MD History of Present Illness Dear Dr. Zavaleta: Thank you for the kind referral of Mrs. Talavera to critical care service. This is 53-year-old female with history of morbid obesity, hypertension, CHF, asthma, depression, presented to the hospital with increasing shortness of breath accompanied with persistent cough for the past few days, she was recently hospitalized with similar symptoms last month, the patient denies any chest pain, she has no orthopnea or paroxysmal nocturnal dyspnea, denies any increased swelling in her lower extremities. The patient has difficulty ambulating even a block prior to her arrival. No hemoptysis was reported no urinary symptoms or change in her bowel movement. Patient has URI symptoms and she claims she has similar symptoms every year due to seasonal allergies. When the patient arrived to the hospital, she was in severe respiratory distress with bilateral wheezing, she was started empirically on BiPAP in addition to steroids and nebulizer treatment. She underwent a CAT scan of the chest which showed faint groundglass opacities bilaterally started empirically on antibiotics. Allergies Allergy/AdvReac Type Severity Reaction Status Date / Time bee venom protein (honey bee) Allergy Severe THROAT Unverified 12/23/18 22:08 SWELLING ibuprofen Allergy Unknown swelling Unverified 12/23/18 22:08 mushroom Allergy Unknown swelling Unverified 12/23/18 22:08 Home Medications Home Medications Medication Instructions Recorded Confirmed Type albuterol sulfate 6 ml INHALATION Q6 PRN 08/12/18 12/23/18 History albuterol sulfate [Ventolin HFA] 2 puff INHALATION QID PRN 08/12/18 12/23/18 History ferrous sulfate 325 mg PO DAILY 08/12/18 12/23/18 History hydralazine 50 mg PO TID 08/12/18 12/23/18 History lisinopril 10 mg PO DAILY 08/12/18 12/23/18 History metoprolol succinate [Toprol XL] 25 mg PO DAILY 08/12/18 12/23/18 History fluoxetine 0 mg PO DAILY 12/23/18 12/23/18 History gabapentin 300 mg PO TID 12/23/18 12/23/18 History Patient History Medical History HTN (hypertension) (Chronic) Asthma (Chronic) PNA (pneumonia) (Resolved) Surgical History Previous section Social History Preferred Language: Italian Communication Ability: Effective Mortuary Technician Required: No Beliefs That Will Affect Care: None Current Living Situation: Family Current Living Situation Comment: adult dtrs live w/ her Other Information That Helps Us Care for You: No Feels Safe at Home: Yes Safety Concerns: Feels Safe At This Time Smoking Status: Former smoker Do You Dip or Chew Tobacco: No Smoking End Date: 2011 Second Hand Exposure: Yes Tobacco Cessation Education Requested by Patient: No Hx Alcohol Use: Yes Alcohol type: wine Hx Substance Use: No Review of Systems Review of Systems: Review of system except for the above was reviewed, 14 systems has been reviewed and all are unremarkable except for the above. Physical Exam Physical Exam: Vital signs are stable, currently the patient O2 saturation is 98% on 3 L, no JVD, lungs with bilateral diffuse wheezing, S1-S2, abdomen is obese but benign, no edema in the periphery, neurologically she is intact, no oral lesion, no visual disturbances. Results & Data Vital Signs (Past 12 Hours) Vital Signs Temp Pulse Pulse Resp BP BP Pulse Ox 12/24/18 08:00 36.7 C 88 19 166/73 H 97 12/24/18 07:28 92 H 18 99 12/24/18 07:00 66 20 193/85 H 97 12/24/18 05:32 97 H 24 97 12/24/18 05:06 74 24 181/81 H 100 12/24/18 04:02 75 27 H 96 12/24/18 04:01 75 25 H 164/73 H 94 12/24/18 04:00 88 22 96 12/24/18 03:01 79 28 H 155/62 H 96 12/24/18 03:00 78 26 H 97 12/24/18 02:01 87 30 H 179/81 H 98 12/24/18 02:00 86 27 H 98 12/24/18 01:30 95 H 23 100 12/24/18 01:01 103 H 33 H 170/74 H 98 12/24/18 01:00 91 H 24 99 12/24/18 00:52 36.9 C 94 H 24 173/75 H 98 12/24/18 00:34 94 H 26 H 97 12/24/18 00:30 36.9 C 103 H 38 H 96 12/24/18 00:28 94 H 27 H 173/75 H 97 12/24/18 00:25 94 H 24 12/24/18 00:22 12/23/18 23:48 95 H 22 176/74 H 67 L 12/23/18 23:41 91 H 28 H 176/74 H 97 12/23/18 23:30 99 H 33 H 91 12/23/18 23:02 94 H 24 195/85 H 96 12/23/18 23:00 91 H 25 H 97 12/23/18 22:32 105 H 33 H 181/92 H 95 12/23/18 22:00 104 H 23 90 12/23/18 21:50 107 H 29 H 98 Pulse Ox 12/24/18 08:00 12/24/18 07:28 12/24/18 07:00 12/24/18 05:32 12/24/18 05:06 12/24/18 04:02 12/24/18 04:01 12/24/18 04:00 12/24/18 03:01 12/24/18 03:00 12/24/18 02:01 12/24/18 02:00 12/24/18 01:30 12/24/18 01:01 12/24/18 01:00 12/24/18 00:52 12/24/18 00:34 12/24/18 00:30 12/24/18 00:28 12/24/18 00:25 12/24/18 00:22 98 12/23/18 23:48 12/23/18 23:41 12/23/18 23:30 12/23/18 23:02 12/23/18 23:00 12/23/18 22:32 12/23/18 22:00 12/23/18 21:50 Laboratory Results Labs revealed leukocytosis, ABG was reviewed but was venous, glucose is elevated and the rest of her labs are within acceptable limits. Diagnostic Findings CAT scan of the chest was reviewed personally which showed small areas of groundglass opacity mainly in the lingula, otherwise was unremarkable.
[2018-12-24] MEDS ORDERED: DOXYCYCLINE HYCLATE 100 MG in DEXTROSE 5% 100 ML IV SCH (10:00)
--- NOTE | 2018-12-24 10:03 | Pharmacy Report ---
Pharmacy Glycemic Short Note 2 - Date of Service December 24, 2018 - Glycemic Short BSG Results (Last 24 hours): 12/23/18 12/24/18 12/24/18 20:28 01:34 04:44 Glucose 156 H 321 H* POC Glucose 363 H* 12/24/18 07:15 Glucose POC Glucose 235 H OUTPATIENT ANTIDIABETIC REGIMEN: * N/A ASSESSMENT: * Patient appears to be a new onset diabetic with an HbA1c of 8.4%, experiencing steroid induced hyperglycemia. High dose IV solumedrol to continue for now per MD. * Patient received 30 units lantus this morning in addition to 10 units IV regular to help lower BSG in the high 300s. * Will initiate a lantus scale for this evening based on BSG * Novolog coverage was initiated with a weight based stress of 2 correction factor. A more conservative carb coverage was initially selected given new diagnosis and amount of insulin already given this morning. However, this will likely need to be tightened with continued use of high dose steroids. PLAN FOR INPATIENT GLYCEMIC CONTROL: * Basal insulin * Lantus 30 units SQ this morning * Lantus per scale this evening (18 units if BSG 150 mg/dL or less; 25 units if BSG > 150 mg/dL) * Bolus insulin * NovoLog per scale ACHS or Q6hrs while NPO * Goal Range: Low 120 mg/dL - High 160 mg/dL * Correction Factor: 15 mg/dL/unit * Nutritional / Prandial insulin per carb ratio of 1 unit per 7 grams CHO consumed PLAN FOR DISCHARGE: * pending
[2018-12-24] MEDS: ACETAMINOPHEN 500 MG TAB PO PRN (17:25)
[2018-12-24] MEDS: HydrALAZINE HCL 20 MG/ML VIAL IV PRN ×2 (18:28→23:24)
[2018-12-24] MEDS: INSULIN GLARGINE SOLOSTAR 100 UNITS/ML 3 ML PEN SC SCH (20:44)
[2018-12-24] MEDS: cefTRIAXone SODIUM 2,000 MG in DEXTROSE 5% 50 ML IV SCH (20:44)
[2018-12-24] MEDS: DOXYCYCLINE HYCLATE 100 MG CAP PO SCH (20:47)
[2018-12-25] MEDS ORDERED: INSULIN ASPART 100 UNITS/ML 3 ML PEN SC SCH
[2018-12-25] MEDS ORDERED: TRAMADOL HCL 50 MG TABLET PO STA (01:25)
[2018-12-25] MEDS: ACETAMINOPHEN 500 MG TAB PO PRN (02:05)
[2018-12-25] MEDS: methylPREDNISolone 60 MG in SYRINGE 0 ML IV SCH ×2 (02:05→08:39)
--- NOTE | 2018-12-25 07:12 | Family Medicine Progress Note ---
Date of Service December 25, 2018 Assessment & Plan (1) Multifocal pneumonia: 53 y/o F Hx systolic CHF, HTN, obese, depression, asthma. Presents with progressive SOB, back pain and a productive cough x 4 days. Presented to the ER in respiratory distress. Intubation was initially considered, however, she responded well to nebulizers and BiPAP. A CTA was obtained to r/o PE. No PE was apparent, however, this did demonstrate multifocal PNM. Labs are notable for mild leukocytosis. An EKG shows slight QT prolongation. 1) PNM and asthma exacerbation with respiratory distress/failure -admitted to the ICU because the patient required BiPAP, started on ceftriaxone and doxycycline secondary to QT prolongation. Initially required BiPAP then nasal cannula oxygen was weaned to room air this morning. Significant asthma history, uses no controller medications. -CTX and doxy day 2 for pnm 2/2 -qt prolongation -Continue IV Methylprednisolone 60mg q6h -Patient will need asthma evaluation on discharge, consider discharging on controller medication -start Singulair -We will likely need Flovent versus Advair on discharge -Bipap at night as much as tolerated 2) History of CHF -Echo demonstrated ejection fraction of 50%, with increased PA pressures, right atrial pressure is 15 -cont Lisinopril, Toprol. -Patient is currently not fluid overloaded however will obtain daily weights, if she becomes symptomatic consider diuresis with furosemide 3) New Dx DMII: Patient is morbidly obese and has poor diet although recently she informed us she has been making efforts to improve her diet -HgbA1c is 8.4 getting poor sugar control over the last 3 months -glycemic consult placed per following recs -On discharge will need to decide if single or dual medical therapy is appropriate -Patient is having a difficult time dealing with her new diagnosis, will place breastfeeding educator referral. 4) Depression - cont Fluoxetine - Gabapentin for back pain 5) Morbidly obese -Outpt sleep study -Lifestyle counseling 6) HTN -Prn hydralzine 5mg q2h -Increase Lisinopril from 10 mg 20 mg qday, gave patient extra 10 mg to make today's daily dose total of 20 -metoprolol suc 25 mg daily 7)Headache Patient reports having history of frequent headaches, seem to be related to stress. Over the last 24 hours she has endorsed almost a consistent headache unresponsive to Tylenol. Differential includes tension headache, headache due to other medical conditions (diabetes, hypertension), migraine, pseudotumor cerebri -Dr. Zavaleta's headache cocktail -IV Compazine 5 mg, IV Tylenol 1g, IV Benadryl 25 mg -Watch for signs and symptoms of pseudotumor (Vision changes) FENa: Heart healthy/diabetic diet Code Status: full Code DVT PPX: Lovenox Dispo: MedSurg with telemetry Supervising Physician Co-Signing Physician Notes Attending attestation Pt seen and examined in concert with Dr. Haskins. In agreement with the documented findings as noted in the resident documentation with any exceptions or additions as noted here. 53 y/o female h/o chronic lower back pain, HTN, asthma (flares in the season changes are managed with albuterol only, formerly on Advair, stopped remotely). Gradually improving shortness of breath and nonproductive cough with persistent wheezing approx 2 hours s/p nebulizer treatment. Headache is bilateral, frontal and was considerably improved following benadryl/compazine/tylenol and worsened slightly with position change, does have chronic intermittent headaches. On examination, decreased breath sounds throughout with scattered wheezing, S1/S2 nl RRR no MCG. Abd NT/ND, BS +ve Asthma exacerbation with community acquired PNA - continue duoneb therapy, solumedrol. Taper this evening. Tolerating ceftriaxone and doxycycline well, to taper in AM to PO. Add Singulair today, consider Flovent on discharge. Hypertension - increase lisinopril to 20mg today and continue metformin. Hydralazine PRN New diagnosis of DMII, uncontrolled - A1c 8.4% - glycemic consult w/ Lantus and aspart therapy in hospital. Doing well with DM educator, working on diet planning. Has barriers to exercise. Else see resident documentation as noted. Subjective Patient sleeping in bed this morning secondary to headache. Reports having a difficult night overnight, she became very frustrated with the frequent blood sugar checks, her hypertension, and headache pain. The night resident was paged about her headache and prescribed Ultram. She received both Ultram and Tylenol neither which relieved her headache. This morning we had a lengthy conversation with the patient discussed all of the barriers to her adequately making the lifestyle changes necessary to treat her hypertension and diabetes. She also has a history of a fall on the ice? Which she claims causes her back and leg pain this is been evaluated several times by physicians and workers comp. I am concerned the patient does not accept the reality of her current situation with reference to her hypertension and diabetes, I am further concerned that she thinks that the these diagnoses can be bargained away and not addressed. Spent a great deal of time discussing lifestyle changes, exercise goals, diet nutrition, and offered to follow-up with the patient has an outpatient to help her achieve these goals. The patient is concerned that with these medication changes she will not be able to afford them. Patient tolerating her diet, voiding, stooling appropriately. Acute concerns related to head pain, answered all questions. Patient denies fevers chills nausea vomiting diarrhea constipation chest pain chest pressure changes in vision Patient endorses pain in back and leg headache Physical Exam Physical Exam: General: Morbidly obese female in no acute distress atraumatic normocephalic Eyes: EOMI Neck: Normal to visual inspection did not appreciate JVD Chest: Poor air movement, diffuse wheezing, rhonchi present bilaterally although improved from yesterday Cardiac:Regular rate and rhythm, normal S1-S2, I did not appreciate any murmurs rubs or gallops GI: Normal bowel sounds, nontender nondistended MSK: Moves all extremities, reports pain in her back and left leg Skin: Warm dry and intact Neuro: AAO x4 Psych: Depressed,reserved, aggravated, frustrated with frequent sugar checks Results & Data Vital Signs (Past 12 Hours) Vital Signs Temp Pulse Pulse Resp BP Pulse Ox 12/25/18 04:00 36.9 C 74 20 168/79 H 92 12/24/18 23:30 93 H 12/24/18 23:10 36.5 C 81 22 181/80 H 94 12/24/18 20:30 89 158/86 H 12/24/18 19:23 84 18 96 Resident Activity Tracking Resident Involvement: Resident Care Provided Care Provided: Adult Hospital Medicine
[2018-12-25] MEDS: ALBUT/IPRATROP 3MG/0.5MG NEB 3 ML VIAL NEB SCH ×4 (07:36→19:10)
[2018-12-25 07:55] LABS: Basophils # (auto) 0.01 K/uL (0-0.2); Hematocrit (blood only) 39.2 % (37-47); Hemoglobin 13.3 g/dL (12.0-16.0); Immature Granulocytes # (auto) 0.24 K/uL (0.00-0.02); Immature Granulocytes % (auto) 1.2 %; Lymphocytes # (auto) 1.78 K/uL (1.2-3.4); Lymphocytes % (auto) 8.7 %; Mean Corpuscular Hgb Conc 33.9 g/dL (32-36); Mean Platelet Volume 11.1 fL (7.4-10.4); Monocytes # (auto) 0.53 K/uL (0.11-0.59); Monocytes % (auto) 2.6 %; Neutrophils # (auto) 17.84 K/uL (1.4-6.5); Neutrophils % (auto) 87.5 %; Platelet Count 315 K/uL (130-400); RDW Coefficient of Variation 13.9 % (11.5-14.5); RDW Standard Deviation 43.2 fL (36.4-46.3); Red Blood Count 4.56 M/uL (4.2-5.4)
[2018-12-25 08:27] LABS: BUN Creatinine Ratio 15.6 (10-20); Calcium 9.6 mg/dl (8.5-10.1); Creatinine Clr Calc Pharmacy 116.3 ml/min; Est GFR (African American) 92.6; Est GFR (Non-African American) 79.9
[2018-12-25] MEDS: INSULIN ASPART 100 UNITS/ML 3 ML PEN SC SCH ×5 (08:32→23:57)
[2018-12-25] MEDS: INSULIN GLARGINE SOLOSTAR 100 UNITS/ML 3 ML PEN SC SCH ×2 (08:36→21:17)
[2018-12-25] MEDS: HydrALAZINE TAB 50 MG TAB PO SCH ×3 (08:38→21:11)
[2018-12-25] MEDS: GABAPENTIN 300 MG CAP PO SCH ×4 (08:38→21:34)
[2018-12-25] MEDS: METOPROLOL SUCC 25MG EXT REL TAB PO SCH (08:39)
[2018-12-25] MEDS: FLUOXETINE HCL 20 MG CAP PO SCH (08:39)
[2018-12-25] MEDS: DOXYCYCLINE HYCLATE 100 MG CAP PO SCH ×2 (08:40→21:11)
[2018-12-25] MEDS: LISINOPRIL 10 MG TAB PO SCH (08:40)
[2018-12-25] MEDS ORDERED: ACETAMINOPHEN 1,000 MG/100 ML VIAL IV STA (10:29)
[2018-12-25] MEDS ORDERED: DiphenhydrAMINE HCL 50 MG/ML VIAL IV STA ×2 (10:29→23:56)
--- NOTE | 2018-12-25 10:33 | Pharmacy Report ---
Pharmacy Glycemic Short Note 2 - Date of Service December 25, 2018 - Glycemic Short BSG Results (Last 24 hours): 12/24/18 12/24/18 12/24/18 11:00 17:06 20:26 Glucose POC Glucose 244 H 287 H 282 H 12/24/18 12/25/18 12/25/18 23:20 07:38 07:43 Glucose 293 H POC Glucose 222 H 298 H OUTPATIENT ANTIDIABETIC REGIMEN: * N/A ASSESSMENT: 12/25: * Patient received 97 units of insulin yesterday with BSGs all above goal * 42 units of basal insulin * 55 units of bolus insulin * She remains on high dose IV steroids: solu medrol 60 mg IV q6h -> decreased to 40 mg IV q6h starting @ 1500 today * Changes needed to insulin regimen: * Fasting BSG of 298 mg/dL is above goal. Patient was ordered to receive 25 units of Lantus last evening, however it is documented that she was only given 12 units (unsure of reason?). Lantus was increased to 30 units for this morning and will be ordered per scale at HS. * Post prandial BSGs have been consistently elevated despite tightening Novolog parameters yesterday. I will further tighten today. BSG trending down at lunchtime. 12/24: * Patient appears to be a new onset diabetic with an HbA1c of 8.4%, experiencing steroid induced hyperglycemia. High dose IV solumedrol to continue for now per MD. * Patient received 30 units lantus this morning in addition to 10 units IV regular to help lower BSG in the high 300s. * Will initiate a lantus scale for this evening based on BSG * Novolog coverage was initiated with a weight based stress of 2 correction factor. A more conservative carb coverage was initially selected given new diagnosis and amount of insulin already given this morning. However, this will likely need to be tightened with continued use of high dose steroids. PLAN FOR INPATIENT GLYCEMIC CONTROL: * Basal insulin * Lantus 30 units SQ this morning, then per scale BID: * 25 units for BSG < 140 mg/dL * 30 units for BSG 140 - 180 mg/dL * 35 units for BSG > 180 mg/dL * Bolus insulin - tighten * NovoLog per scale ACHS or Q6hrs while NPO * Goal Range: Low 120 mg/dL - High 160 mg/dL * Correction Factor: 10 mg/dL/unit * Nutritional / Prandial insulin per carb ratio of 1 unit per 3 grams CHO consumed * Continue overnight checks PLAN FOR DISCHARGE: * New diagnosis, A1c 8.4% * Consider starting metformin ER 500 mg once daily with evening meal * Hospitalist note states that patient may be discharged on insulin (doses to be determined - current insulin usage is reflective of high dose IV steroids and therefore can not be utilized to determine outpatient doses)
[2018-12-25] MEDS ORDERED: PROCHLORPERAZINE 5 MG in SYRINGE 4 ML IV ONE (11:00)
[2018-12-25] MEDS ORDERED: LISINOPRIL 10 MG TAB PO ONE (13:20)
--- NOTE | 2018-12-25 13:24 | Pulmonology Progress Note ---
Date of Service December 25, 2018 Assessment & Plan (1) Respiratory failure: Impression: 1. Asthma exacerbation. The patient is not taking long-acting controller medicine. She does have only albuterol nebulizer and inhaler at home. 2. Morbid obesity with likely obstructive sleep apnea. 3. The patient has history of CHF however I do not have any records on her. 4. Poorly controlled hypertension. 5. Community-acquired pneumonia. 6. Acute hypoxic respiratory failure, responding to NPPV. Plan: 1. Continue current dose of Solu-Medrol. 2. Echocardiogram is consistent with EF of 50%, PA pressure is elevated but the right atrial pressure is 15. 3. Add controller bronchodilator. 4. She will need polysomnography as an outpatient. 5. Aggressive blood pressure control. 6. BiPAP nocturnally. She could not tolerate it due to claustrophobia, but she would wear it for 2 hours tonight, I instructed her to do so. 7. Glucose controlled. Remains hyperglycemic. 8. DVT prophylaxis. 9. Ambulate the patient. 10. Diuresis. Thank you, will follow. Subjective No events overnight, the patient has insomnia overnight only, she could not tolerate the BiPAP due to claustrophobia, she is continued on steroids and bronchodilators, she is requiring no oxygen at this point. Review of Systems Review of Systems: Denies any shortness of breath at rest, continues to have wheezing, cough with no sputum production, no fever and no constitutional symptoms, no chest pain, no abdominal pain no nausea or vomiting no increased swelling in her lower extremities, she is ambulatory but with dyspnea. The rest of her review of system was unremarkable. Physical Exam Physical Exam: Vital signs are stable except for persistent hypertension, bilateral diffuse wheezing, no JVD, no stridor, no oral thrush, S1-S2 regular rate and rhythm, abdomen is benign, trace edema in the periphery. Neurologically she is intact. No skin rash. Results & Data Vital Signs (Past 12 Hours) Vital Signs Temp Pulse Resp BP Pulse Ox 12/25/18 11:37 36.7 C 82 18 184/77 H 95 12/25/18 11:14 70 97 12/25/18 07:36 73 20 96 12/25/18 04:00 36.9 C 74 20 168/79 H 92 Laboratory Results Labs were reviewed personally, leukocytosis related to steroids, hyperglycemia due to steroids as well. Diagnostic Findings No new imaging. Echocardiogram was reviewed personally which showed EF of 50%, the patient has slightly elevated pulmonary pressures. Although was not estimated completely.
[2018-12-25] MEDS ORDERED: CARBOHYDRATES FOR HYPOGLYCEMIA PO PRN (14:00)
[2018-12-25] MEDS ORDERED: GLUCOSE 40% GEL 15 GM TUBE PO PRN (14:00)
[2018-12-25] MEDS ORDERED: GLUCOSE 10 TABS/TUBE PO PRN (14:00)
[2018-12-25] MEDS ORDERED: FUROSEMIDE 40 MG in SYRINGE 0 ML IV ONE (14:00)
[2018-12-25] MEDS ORDERED: GLUCAGON FOR INJ 1 MG VIAL IM PRN (14:00)
[2018-12-25] MEDS ORDERED: DEXTROSE 50% 50 ML SYRINGE IV PRN (14:00)
[2018-12-25 14:44] LABS: Prothrombin Time 10.5 Seconds (9.0-12.0)
[2018-12-25] MEDS: methylPREDNISolone 40 MG in SYRINGE 0 ML IV SCH ×2 (15:36→21:29)
[2018-12-25] MEDS: ENOXAPARIN INJ 40 MG/0.4 ML SYR SQ SCH (15:36)
[2018-12-25] MEDS: MONTELUKAST SODIUM 10 MG TABLET PO SCH (21:11)
[2018-12-25] MEDS: cefTRIAXone SODIUM 2,000 MG in DEXTROSE 5% 50 ML IV SCH (21:12)
[2018-12-26] MEDS: methylPREDNISolone 40 MG in SYRINGE 0 ML IV SCH ×2 (02:27→08:36)
[2018-12-26] MEDS: INSULIN ASPART 100 UNITS/ML 3 ML PEN SC SCH ×5 (04:04→21:38)
[2018-12-26 05:50] LABS: Basophils # (auto) 0.02 K/uL (0-0.2); Basophils % (auto) 0.1 %; Hematocrit (blood only) 37.8 % (37-47); Hemoglobin 12.7 g/dL (12.0-16.0); Immature Granulocytes # (auto) 0.11 K/uL (0.00-0.02); Immature Granulocytes % (auto) 0.7 %; Lymphocytes # (auto) 1.51 K/uL (1.2-3.4); Mean Corpuscular Hgb Conc 33.6 g/dL (32-36); Mean Corpuscular Volume 86.9 fL (80-100); Mean Platelet Volume 11.1 fL (7.4-10.4); Monocytes # (auto) 0.71 K/uL (0.11-0.59); Monocytes % (auto) 4.2 %; Platelet Count 312 K/uL (130-400); RDW Coefficient of Variation 13.9 % (11.5-14.5); RDW Standard Deviation 44.4 fL (36.4-46.3); Red Blood Count 4.35 M/uL (4.2-5.4); White Blood Count 16.85 K/uL (4.8-10.8)
[2018-12-26 06:17] LABS: BUN Creatinine Ratio 27.9 (10-20); Calcium 8.9 mg/dl (8.5-10.1); Creatinine Clr Calc Pharmacy 130.2 ml/min; Est GFR (African American) 106.2; Est GFR (Non-African American) 91.6; Potassium 3.8 mmol/L (3.5-5.1)
[2018-12-26] MEDS: ALBUT/IPRATROP 3MG/0.5MG NEB 3 ML VIAL NEB SCH ×4 (07:12→19:24)
--- NOTE | 2018-12-26 07:16 | Family Medicine Progress Note ---
Date of Service December 26, 2018 Assessment & Plan (1) Multifocal pneumonia: 53 y/o F Hx systolic CHF, HTN, obese, depression, asthma. Presents with progressive SOB, back pain and a productive cough x 4 days. Presented to the ER in respiratory distress. Intubation was initially considered, however, she responded well to nebulizers and BiPAP. A CTA was obtained to r/o PE. No PE was apparent, however, this did demonstrate multifocal PNM. Labs are notable for mild leukocytosis. An EKG shows slight QT prolongation. 1) PNM and asthma exacerbation with respiratory distress/failure -admitted to the ICU because the patient required BiPAP, started on ceftriaxone and doxycycline secondary to QT prolongation. Initially required BiPAP then nasal cannula oxygen was weaned to room air this morning. Significant asthma history, uses no controller medications. -CTX and doxy day 3 for pnm 2/2 plan to transition to oral augmentin today -Transition to oral prednisone 60 mg daily we will [id number] 4040, 3030, 2020, 1010 -Patient will need asthma evaluation on discharge, consider discharging on controller medication -start Singulair -Will start Flovent on discharge -Bipap at night as much as tolerated -Need outpatient sleep study to evaluate obesity hypoventilation syndrome versus obstructive sleep apnea 2) History of CHF -Echo demonstrated ejection fraction of 50%, with increased PA pressures, right atrial pressure is 15 -cont Lisinopril, Toprol. -Patient is currently not fluid overloaded however will obtain daily weights, if she becomes symptomatic consider diuresis with furosemide BUN to creatinine ratio 28 ensure patient is taking in adequate p.o. flu id. -Pulmonary is concerned about increased pulmonary arterial pressures -Will need repeat echo in 3 months 3) New Dx DMII: Patient is morbidly obese and has poor diet although recently she informed us she has been making efforts to improve her diet -HgbA1c is 8.4 getting poor sugar control over the last 3 months -glycemic consult placed per following recs -We plan to discharge on metformin with a goal of coming off in 6 months using lifestyle management techniques -Met with transportation lead today -DC with Accu-Chek test strips and lancets so she can check postprandial blood sugar 4) Depression - cont Fluoxetine - Gabapentin for back pain - Anxiety episode overnight treated with 50 mg IV diphenhydramine 5) Morbidly obese -Outpt sleep study -Lifestyle counseling 6) HTN -Improving status post initiation of 40 mg lisinopril daily,Will defer more aggressive therapy to outpatient setting -Prn hydralzine 5mg q2h -Lisinopril 40 mg daily -metoprolol suc 25 mg daily 7)Headache Patient reports having history of frequent headaches, seem to be related to stress. Over the last 24 hours she has endorsed almost a consistent headache unresponsive to Tylenol. Differential includes tension headache, headache due to other medical conditions (diabetes, hypertension), migraine, pseudotumor cerebri -Dr. Zavaleta's headache cocktail -IV Compazine 5 mg, IV Tylenol 1g, IV Benadryl 25 mg -Watch for signs and symptoms of pseudotumor (Vision changes) -Consult opthalmology questionable papilledema FENa: Heart healthy/diabetic diet Code Status: full Code DVT PPX: Lovenox Dispo: MedSurg with telemetry Subjective Patient sitting up in bed this morning in no acute distress. Overnight patient reported having episode of anxiety night resident was called administered 50 mg IV Benadryl when anxiety resolved. Patient has been tolerating her diet,Voiding, stooling, and sleeping appropriately.Is complaining of a significant headache today Not relieved through conventional means..Spent a great deal of time counseling the patient on moderate lifestyle modifications quitting diet and exercise for diabetes, discussing her asthma symptoms with her starting her on a controller medication of some form.she was having difficulty participating the interview today severe. Otherwise objective symptoms of illness and shortness of breath are improving. Patient is still refusing to wear BiPAP at nighttime..Most likely will follow-up with me as an outpatient case management can assist in obtaining appointment, likely for discharge tomorrow. No acute concerns at present all questions answered. Physical Exam Physical Exam: General: Morbidly obese female in no acute distress atraumatic normocephalic Eyes: EOMI Neck: Normal to visual inspection did not appreciate JVD Chest: Air movement significantly improved occasional wheezing present rhonchi present bilaterally Cardiac:Regular rate and rhythm, normal S1-S2, I did not appreciate any murmurs rubs or gallops GI: Normal bowel sounds, nontender nondistended MSK: Moves all extremities, Skin: Warm dry and intact Neuro: AAO x4 Psych: Starting to accept her current medical conditions Results & Data Vital Signs (Past 12 Hours) Vital Signs Temp Pulse Pulse Pulse Resp BP BP 12/26/18 04:00 36.4 C L 71 18 164/73 H 12/26/18 03:43 77 12/25/18 23:40 71 142/81 H 12/25/18 22:58 36.8 C 82 20 198/75 H 12/25/18 20:00 36.5 C 80 20 182/63 H 12/25/18 19:11 96 H 18 Pulse Ox 12/26/18 04:00 97 12/26/18 03:43 12/25/18 23:40 12/25/18 22:58 93 12/25/18 20:00 97 12/25/18 19:11 99 Resident Activity Tracking Resident Involvement: Resident Care Provided Care Provided: Adult Hospital Medicine
--- NOTE | 2018-12-26 08:09 | Pharmacy Report ---
Pharmacy Glycemic Short Note 2 - Date of Service December 26, 2018 - Glycemic Short BSG Results (Last 24 hours): 12/25/18 12/25/18 12/25/18 07:38 11:41 16:48 Glucose 293 H POC Glucose 219 H 163 H 12/25/18 12/26/18 12/26/18 21:14 05:26 07:46 Glucose 279 H POC Glucose 178 H 245 H OUTPATIENT ANTIDIABETIC REGIMEN: * N/A ASSESSMENT: 12/26 * Ms. Talavera received 136 units of insulin yesterday (60 of this being basal) * BSGs were starting to improve yesterday afternoon but fasting is elevated this AM. The patient refused overnight checks so she was unable to receive additional coverage overnight for high BSGs. The nurse confirmed with the patient this AM that she did NOT have any po intake prior to her fasting BSG this AM. * Will provide additional basal this AM only. Hyperglycemia may still be due to lower dose given 12/24 PM. * Since postprandial BSGs improved yesterday, will continue same CF/CR for now 12/25: * Patient received 97 units of insulin yesterday with BSGs all above goal * 42 units of basal insulin * 55 units of bolus insulin * She remains on high dose IV steroids: solu medrol 60 mg IV q6h -> decreased to 40 mg IV q6h starting @ 1500 today * Changes needed to insulin regimen: * Fasting BSG of 298 mg/dL is above goal. Patient was ordered to receive 25 units of Lantus last evening, however it is documented that she was only given 12 units (unsure of reason?). Lantus was increased to 30 units for this morning and will be ordered per scale at HS. * Post prandial BSGs have been consistently elevated despite tightening Novolog parameters yesterday. I will further tighten today. BSG trending down at lunchtime. 12/24: * Patient appears to be a new onset diabetic with an HbA1c of 8.4%, experiencing steroid induced hyperglycemia. High dose IV solumedrol to continue for now per MD. * Patient received 30 units lantus this morning in addition to 10 units IV regular to help lower BSG in the high 300s. * Will initiate a lantus scale for this evening based on BSG * Novolog coverage was initiated with a weight based stress of 2 correction factor. A more conservative carb coverage was initially selected given new diagnosis and amount of insulin already given this morning. However, this will likely need to be tightened with continued use of high dose steroids. PLAN FOR INPATIENT GLYCEMIC CONTROL: * Basal insulin * Lantus 40 units SQ this morning, then per scale BID: * 25 units for BSG < 140 mg/dL * 30 units for BSG 140 - 160 mg/dL * 35 units for BSG > 160 mg/dL * Bolus insulin - tighten goal range only * NovoLog per scale ACHS or Q6hrs while NPO * Goal Range: Low 110 mg/dL - High 140 mg/dL * Correction Factor: 10 mg/dL/unit * Nutritional / Prandial insulin per carb ratio of 1 unit per 3 grams CHO consumed PLAN FOR DISCHARGE: (from 12/25 note) * New diagnosis, A1c 8.4% * Consider starting metformin ER 500 mg once daily with evening meal * Hospitalist note states that patient may be discharged on insulin (doses to be determined - current insulin usage is reflective of high dose IV steroids and therefore can not be utilized to determine outpatient doses)
[2018-12-26] MEDS: DOXYCYCLINE HYCLATE 100 MG CAP PO SCH (08:36)
[2018-12-26] MEDS: FLUOXETINE HCL 20 MG CAP PO SCH (08:36)
[2018-12-26] MEDS: HydrALAZINE TAB 50 MG TAB PO SCH ×4 (08:37→21:00)
[2018-12-26] MEDS: GABAPENTIN 300 MG CAP PO SCH ×3 (08:37→20:59)
[2018-12-26] MEDS: LISINOPRIL 40 MG TAB PO SCH (08:38)
[2018-12-26] MEDS: ENOXAPARIN INJ 40 MG/0.4 ML SYR SQ SCH (08:38)
[2018-12-26] MEDS: ACETAMINOPHEN 500 MG TAB PO PRN (08:45)
[2018-12-26] MEDS ORDERED: INSULIN GLARGINE SOLOSTAR 100 UNITS/ML 3 ML PEN SC ONE (09:00)
[2018-12-26] MEDS ORDERED: LISINOPRIL 20 MG TAB PO SCH (09:00)
[2018-12-26] MEDS: predniSONE 20 MG TAB PO SCH (12:22)
--- NOTE | 2018-12-26 13:37 | Pulmonology Progress Note ---
Date of Service December 26, 2018 Assessment & Plan (1) Respiratory failure: asthma exacerbation - improving but still wheezing continue steroids. will need controller medication on discharge. ICS/LABA combination. she says ivy worked for he in the past DAISY repeat sleep study as outpatient. likely needed cpap/bipap but may need to look into other options with claustrophobia elevated PA pressures. needs followup echo in 3 months. likely likely multifactorial due to obesity, DAIYS, asthma, diastolic dysfunction. if not improved especially once DAISY treated may need further workup Subjective breathing improved. Physical Exam Physical Exam: Constitutional: Comfortable NAD. obese HEENT: normocephalic atraumatic. CV: RRR nl s1,s2 no murmurs rubs or gallops Lungs: scattered wheezing bilaterally. good air movement no accessory muscle use Abd: soft nontender nondistended. normal bowel sounds Ext: no edema. no cyanosis, no clubbing Skin: warm dry Neuro: alert and oriented. moving all extremities Psych: normal mood and affect Results & Data Vital Signs (Past 12 Hours) Vital Signs Temp Pulse Pulse Resp BP BP Pulse Ox 12/26/18 12:00 36.9 C 70 18 155/76 H 98 12/26/18 11:12 101 H 16 99 12/26/18 08:50 75 146/82 H 12/26/18 08:00 36.6 C 75 20 191/79 H 91 12/26/18 07:13 74 16 96 12/26/18 07:00 71 12/26/18 04:00 36.4 C L 71 18 164/73 H 97 12/26/18 03:43 77 Laboratory Results Laboratory Results - last 24 hr 12/25/18 12/25/18 12/25/18 14:22 16:48 21:14 WBC RBC Hgb Hct MCV MCH MCHC RDW Std Deviation RDW Coeff of Anup Plt Count MPV Immature Gran % (Auto) Neut % (Auto) Lymph % (Auto) [place] % (Auto) Eos % (Auto) Baso % (Auto) Immature Gran # (Auto) Neut # (Auto) Lymph # (Auto) [place] # (Auto) Eos # (Auto) Baso # (Auto) PT 10.5 INR 1.0 Sodium Potassium Chloride Carbon Dioxide Anion Gap BUN Creatinine Est Cr Clr Drug Dosing Est GFR ( Amer) Est GFR (Non-Af Amer) BUN/Creatinine Ratio Glucose POC Glucose 163 H 178 H Calcium 12/26/18 12/26/18 12/26/18 05:26 05:26 07:46 WBC 16.85 H RBC 4.35 Hgb 12.7 Hct 37.8 MCV 86.9 MCH 29.2 MCHC 33.6 RDW Std Deviation 44.4 RDW Coeff of Anup 13.9 Plt Count 312 MPV 11.1 H Immature Gran % (Auto) 0.7 Neut % (Auto) 86.0 Lymph % (Auto) 9.0 [place] % (Auto) 4.2 Eos % (Auto) 0.0 Baso % (Auto) 0.1 Immature Gran # (Auto) 0.11 H Neut # (Auto) 14.50 H Lymph # (Auto) 1.51 [place] # (Auto) 0.71 H Eos # (Auto) 0.00 Baso # (Auto) 0.02 PT INR Sodium 138 Potassium 3.8 Chloride 105 Carbon Dioxide 28 Anion Gap 5.0 BUN 21 H D Creatinine 0.75 Est Cr Clr Drug Dosing 130.2 Est GFR ( Amer) 106.2 Est GFR (Non-Af Amer) 91.6 BUN/Creatinine Ratio 27.9 H Glucose 279 H POC Glucose 245 H Calcium 8.9 12/26/18 11:27 WBC RBC Hgb Hct MCV MCH MCHC RDW Std Deviation RDW Coeff of Anup Plt Count MPV Immature Gran % (Auto) Neut % (Auto) Lymph % (Auto) [place] % (Auto) Eos % (Auto) Baso % (Auto) Immature Gran # (Auto) Neut # (Auto) Lymph # (Auto) [place] # (Auto) Eos # (Auto) Baso # (Auto) PT INR Sodium Potassium Chloride Carbon Dioxide Anion Gap BUN Creatinine Est Cr Clr Drug Dosing Est GFR ( Amer) Est GFR (Non-Af Amer) BUN/Creatinine Ratio Glucose POC Glucose 172 H Calcium
[2018-12-26] MEDS: HydrALAZINE HCL 20 MG/ML VIAL IV PRN (15:16)
[2018-12-26] MEDS: AMOXICILLIN/CLAVULANATE 875 MG TAB PO SCH (17:53)
[2018-12-26] MEDS ORDERED: ACETAMINOPHEN 500 MG TAB PO STA (18:06)
[2018-12-26] MEDS ORDERED: ASPIRIN 325 MG ECTAB PO ONE (18:08)
[2018-12-26] MEDS: FLUTICASONE HFA 220 MCG INHALER INH SCH (20:57)
[2018-12-26] MEDS: MONTELUKAST SODIUM 10 MG TABLET PO SCH (20:58)
[2018-12-26] MEDS: INSULIN GLARGINE SOLOSTAR 100 UNITS/ML 3 ML PEN SC SCH (21:39)
[2018-12-26] MEDS ORDERED: INSULIN HUMAN REGULAR PER UNIT 10 UNITS in SYRINGE 9.9 ML IV SCH (22:00)
--- OUTSIDE RECORDS SUMMARY | 2018-12-26 22:33 | External Medical Summary | Continuity of Care Document ---
:1965 Author Name Rebekah Fuentes Address Unavailable Unavailable , Care Team Providers Name Role Phone Quynh Fuentes Unavailable [email or web address] Fernie DOBBINS Unavailable Unavailable Unavailable Unavailable Unavailable Problems Anxiety (300.00) (F41.9) Menorrhagia (626.2) (N92.0) Encounter for routine gynecological examination (V72.31) (Z0 1.419) Abnormal perimenopausal bleeding (627.0) (N92.4) Benign essential hypertension (401.1) (I10) Epistaxis (784.7) (R04.0) Hemotympanum (385.89) (H74.8X9) Allergies and Adverse Reactions No Known Drug Allergies (Allergy) Medications Norethindrone Acetate 5 MG Oral Tablet; Take one tablet each morning for 7 days, then take 3 weeks off. Repeat. Alfredo Beauchamp Start: 05-Oct-2013 Quantity: 21 Refills: 0 buPROPion HCl - 100 MG Oral Tablet Refills: 0 Lisinopril 5 MG Oral Tablet Refills: 0 Metoprolol Tartrate 100 MG Oral Tablet Refills: 0 hydrALAZINE HCl - 25 MG Oral Tablet Refills: 0 ALPRAZolam 0.5 MG Oral Tablet Refills: 0 predniSONE 10 MG Oral Tablet; take 2 tab s bid for 5 days then 1 tab bid for 5 days then 1 tab daily for 5 days Alfredo Mitchell Start: 04-Apr-2014 Quantity: 35 Refills: 0 Procedures History of Section Status: Comp leted History of Cholecystectomy Laparoscopic Status: Completed Immunizations Immunizations not documented Social History - Smoking Status Former smoker Plan of Treatment Planned Observations Planned Goals not documented Results No Known Results Results not documented
[2018-12-27] MEDS: INSULIN ASPART 100 UNITS/ML 3 ML PEN SC SCH ×4 (00:08→12:45)
[2018-12-27] MEDS ORDERED: TRAMADOL HCL 50 MG TABLET PO STA (00:16)
[2018-12-27] MEDS ORDERED: PROCHLORPERAZINE 10 MG in SYRINGE 8 ML IV ONE (00:30)
[2018-12-27] MEDS: ALBUT/IPRATROP 3MG/0.5MG NEB 3 ML VIAL NEB SCH ×2 (07:04→11:07)
--- NOTE | 2018-12-27 07:47 | Discharge Summary ---
Date of Service December 27, 2018 Admission HPI Per Admitting Provider 53 y/o F Hx systolic CHF, HTN, obese, depression, asthma. Presents with progressive SOB, back pain and a productive cough x 4 days. Presented to the ER in respiratory distress. Intubation was initially considered, however, she responded well to nebulizers and BiPAP. A CTA was obtained to r/o PE. No PE was apparent, however, this did demonstrate multifocal PNM. Labs are notable for mild leukocytosis. An EKG shows slight QT prolongation. PMH: 1) Systolic CHF - nonischemic cardiomyopathy. This was thought due to undiagnosed HTN. An echo in 2012 demonstrated an EF of ~40%. 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 Family: DM II, HTN Admission Exam Per Admitting Provider General: Overweight, middle-aged F, mild distress, AAO x 3 ENT: No erythema or exudates, no thrush Eyes: KEV, EOMI Head and neck: Normocephalic, atraumatic, No JVD, neck is supple. Chest/heart: Nontender, S1,2, tachy, no murmurs, no gallops Lungs: Poor air movement and wheezing in all mei Abdomen: Nontender, nondistended, BS+ Neuro: AAO x 3, speech is clear, no unilateral weakness or loss of sensation, coordination intact Musculoskeletal: No joint inflammation, muscle tenderness, FROM Skin: No acute rashes or ulcers Extremities: No clubbing, cyanosis - + edema Principal Diagnosis CAP causing asthma exacerbation, new onset diabetes type 2, hypertension Discharge Exam General: Morbidly obese female in no acute distress atraumatic normocephalic Eyes: EOMI Neck: Normal to visual inspection did not appreciate JVD Chest: CTA BL with occasional wheezes Cardiac:Regular rate and rhythm, normal S1-S2, I did not appreciate any murmurs rubs or gallops GI: Normal bowel sounds, nontender nondistended MSK: Moves all extremities, Skin: Warm dry and intact Neuro: AAO x4 Psych: Starting to accept her current medical conditions Discharge Data Allergies Allergy/AdvReac Type Severity Reaction Status Date / Time bee venom protein (honey bee) Allergy Severe THROAT Unverified 12/23/18 22:08 SWELLING ibuprofen Allergy Unknown swelling Unverified 12/23/18 22:08 mushroom Allergy Unknown swelling Unverified 12/23/18 22:08 Consultations 12/23/18 21:28 ED Decision to Admit Stat 12/24/18 00:22 Consult Case Management - Discharge Planning Routine Consult Data Clerk Routine 12/26/18 15:16 Consult Ophthalmology Routine Ordered Studies 12/23/18 21:45 CT angio chest PE protocol Stat Hospital Course (1) Multifocal pneumonia: 53 y/o F Hx systolic CHF, HTN, obese, depression, asthma. Presents with progressive SOB, back pain and a productive cough x 4 days. Presented to the ER in respiratory distress. Intubation was initially considered, however, she r esponded well to nebulizers and BiPAP. A CTA was obtained to r/o PE. No PE was apparent, however, this did demonstrate multifocal PNM. Labs are notable for mild leukocytosis. An EKG shows slight QT prolongation. 1) PNM and asthma exacerbation with respiratory distress/failure -admitted to the ICU because the patient required BiPAP, started on ceftriaxone and doxycycline secondary to QT prolongation. Initially required BiPAP then nasal cannula oxygen was weaned to room air this morning. Significant asthma history, uses no controller medications. Patient completed 3 days of ceftriaxone and doxycycline before being transitioned to oral Augmentin. She is to complete a 9-day course of oral Augmentin for a total of 14 days of antibiotic coverage. While hospitalized she received IV Solu-Medrol this was transitioned to p.o. prednisone 60 mg x 2 days she is to complete a prednisone taper consisting of 2 days of 50 mg, 2 days of 40 mg, 2 days of 30 mg, 2 days of 20 mg, 2 days of 10 mg. She was started on Singulair and Flovent while hospitalized and is to continue these on discharge. He required BiPAP at night while inpatient, although she only tolerated it for approximately 2 hours. Will need outpatient sleep study. 2) History of CHF Patient has a self-reported history of congestive heart failure, she claims that her ejection fraction improved status post treating her hypertension. A repeat echo was obtained during this admission, demonstrating ejection fraction of 50% with increased PA pressures, right arterial pressures 15. She was continued on lisinopril metoprolol, supplemental fluids were used sparingly and she remained euvolemic throughout the duration of her hospitalization. Pulmonology was concerned about her increased pulmonary arterial pressures, she will need a repeat echo in 3 months to further work this up. Furthermore she needs a referral to sleep therapy or an expert in pulmonary hypertension further work-up her condition. 3) New Dx DMII: Patient is morbidly obese and has poor diet although recently she informed us she has been making efforts to improve her diet. On admission glucose was elevated into the 300s, a HbA1c was 8.4 demonstrating poor sugar control over the last 3 months. The patient received insulin well hospitalized per pharmacy's recommendations. The patient had a very hard time accepting her new diagnosis. She tried to reason and bargain with us and explain away her diagnosis. However by discharge I believe she had excepted. We spent a great deal of time talking about lifestyle modifications including diet and exercise, she states she is very motivated to not require pharmacological therapy for her type 2 diabetes. While hospitalized she met with a academic registrar who gave her a meal plan a calorie goal and set her up with a glucometer. As this is a new diagnosis to the patient she does not really understand how carbs affect her blood sugar we asked her to obtain 2-3hour postprandial glucose readings so she can learn the effects the glucose has on her body. She will need extensive follow-up as an outpatient, I am happy to see her. 4) Depression Patient's depression was stable throughout the hospitalization we continued fluoxetine, gabapentin for her back pain, and she had several anxiety episodes at night that were treated with 50 mg of IV diphenhydramine. 5) Morbidly obese She will require an outpatient sleep study to determine whether she has obesity hypoventilation syndrome or obstructive sleep apnea. Spent a great deal of time talking about lifestyle changes including diet and exercise. 6) HTN Initially she had severe hypertension potentially symptomatic with a headache. While hospitalized we quickly increased her dose of lisinopril to 40 mg a day obtaining adequate blood pressure control, we maintained her metoprolol Suhs needed 25 mg daily. She also received PRN hydralazine 5 mg every 2 hours for systolic pressures greater than 180. On discharge her pressures were well controlled continue lisinopril 40 mg daily and home medication regimen. 7)Headache Patient reports having history of frequent headaches, seem to be related to stress. Over the last 24 hours she has endorsed almost a consistent headache unresponsive to Tylenol. Obtained ophthalmology consult to rule out pseudotumor cerebri, no signs of papilledema per that report. Patient's headache responded well to Dr. Jerez's headache cocktail which consisted of IV Compazine 5 mg, IV Tylenol 1 g, IV Benadryl 25 mg. Would continue to work-up headache in the outpatient setting if patient is still symptomatic FENa: Heart healthy/diabetic diet Code Status: full Code DVT PPX: Lovenox Dispo: MedSurg with telemetry Total Time Total Time Spent Total Time Spent (In Minutes): >30 Discharge Plan Discharge Items Patient Disposition: Home - Self-Care Reason For Visit: PNM - RESP DISTRESS Discharge Diagnosis: Pneumonia in the setting of asthma exacerbation, new onset diabetes type 2, hypertension Discharge Goals: Therapeutic intervention Activity: Resume your previous activity Activity Comment: as tolerated Non-emergency contact: Primary Care Provider Call non-emergency contact if: you have any medication questions, your pain is unusual for you and your temperature is above 100.5 Follow-up/Referrals: Vlad Haskins MD [Resident] - 01/04/19 1:30 pm (Please, follow up with Dr. Vald Haskins on WednesdayJanuary 04 at 1:30 pm. *His office is located in [address] of [facility]. This is the big building next to this hospital. If you need to change this appointment, call the office at [phone].) Diet: Carb Consistent or DM2 Addtl Provider Instructions: Care instructions: You were admitted to [facility] for treatment of pneumonia, new onset diabetes type 2, hypertension. A discharge summary will be sent to your primary care physician to ensure continuity of care.Please bring this discharge summary with you to your next office appointment so that your provider can review it at that time. Pneumonia Please continue to take Augmentin as prescribed, complete a 9-day course of Aug mentin including today. Your first dose will be this evening when you arrive home. Augmentin is dosed 2 times per day once in the morning and once in the evening, it may cause upset stomach. To decrease the side effects of upset stomach please take the medication with your meals. As we discussed it may take up to a month for the run down feeling to go away Diabetes type 2 As we discussed throughout your admission diabetes type 2 is an entirely treatable condition. The mainstays of treatment are diet and exercise, however your hemoglobin A1c with the measure of your three-month blood sugar level demonstrated that you have had poor control over the last 3 months therefore we recommend pharmacological treatment until diet and lifestyle goals are achieved. We have started you on metformin 500 mg 2 times a day. Please obtain the medication it is been called into the [facility] on [facility] and take as prescribed. Additionally we have arranged to receive a blood glucose measuring device. We request that you check your blood sugar levels approximately 2-3 hours after each meal, you can start to develop an understanding of the foods that rapidly increase her blood sugar. -We recommend 20 to 30 minutes of exercise 5 days/week, exercise does not have to be extremely strenuous or difficult. Just any activity that makes you lightly out of breath. -We recommend decreasing your carb intake, this means of avoiding juices, sugary foods, breads, pastas, potatoes, fried foods, or other foods known to be high in caloric content Hypertension While hospitalized we made some adjustment to your blood pressure medications. Please take all medications as prescribed -increased lisinopril to 40mg daily Follow-up appointments: - Keep all your follow-up appointments as already scheduled. If you cannot make an appointment, notify your provider. - Please call to request a follow-up appointment with your primary care physician within one week of discharge. Please let us know if you are unable to obtain an appointment Follow-up labs: - Please go to a lab nearest you and obtain the requested lab work. Please have this completed at least 3 hours before your doctor\[id number] appointment (or the day before your appointment if possible). Medications: - Your medication list has been reviewed and reconciled upon discharge to ensure accuracy and continuity of care. - You are provided with a list of all your current medications at this time. Please review this list closely and make note of any changes. - Please take all of your medications exactly as prescribed. - Tell your primary care provider if you cannot afford your medications. - Call your primary care provider if you are having any side effects or any other problems. - Call your primary care provider before taking any over the counter medications or supplements, including herbals and vitamins, because some of these may interact with your current medications and/or make your symptoms worse. Symptoms: Please call your primary care provider for symptoms including, but not limited to: fevers (temperatures greater than 100.4), chills, intractable nausea or vomiting, diarrhea, rash, shortness of breath, bleeding, pain, or if you experience any worsening of the symptoms that brought you to the hospital. For EMERGENCY and VERY SERIOUS health-related issues, such as chest pain, shortness of breath, or sudden onset of the symptoms that brought you to the hospital, you may need to call 911 or go directly to the Emergency Room Please feel free to contact my office to schedule an appointment, if you would like to continue care with me please alert them to make it a 40-minute appointment. It has been our privilege to take care of you during your hospital stay. And Above All Else Fell Better! Best Wishes, Vlad Haskins MD PGY1 Resident, Family & Community Medicine [facility] at [facility] - [address], [address] : [place] [address] Prescriptions: New lancets [Accu-Chek Fastclix Lancet Drum] misc .ROUTE .MEDSUPPLY Qty: 50 RF: 0 Accu-Chek Guide strip .ROUTE .MEDSUPPLY Qty: 50 RF: 0 amoxicillin-pot clavulanate 875-125 mg Tablet 1 tab PO BIDM 14 Days Qty: 28 RF: 0 montelukast 10 mg Tablet 10 mg PO HS Qty: 30 RF: 0 Flovent HFA 220 mcg/actuation Hfa Aerosol Inhaler 1 puff inhalation BID Qty: 1 RF: 0 prednisone 10 mg tablet 10 mg PO DAILY Qty: 30 RF: 0 metformin 500 mg tablet 500 mg PO BID Qty: 60 RF: 3 lisinopril [Zestril] 40 mg Tablet 40 mg PO DAILY 30 Days Qty: 30 RF: 0 Continued albuterol sulfate 2.5 mg /3 mL (0.083 %) solution for nebulization 6 ml Inhalation Q6 PRN (Reason: Shortness Of Breath) RF: 0 lisinopril 10 mg Tablet 10 mg PO DAILY RF: 0 hydralazine 50 mg Tablet 50 mg PO TID RF: 0 metoprolol succinate [Toprol XL] 25 mg tablet extended release 24 hr 25 mg PO DAILY RF: 0 albuterol sulfate [Ventolin HFA] 90 mcg/actuation Hfa Aerosol Inhaler 2 puff INHALATION QID PRN (Reason: Shortness Of Breath) RF: 0 ferrous sulfate 325 mg (65 mg iron) Tablet,Delayed Release (Dr/Ec) 325 mg PO DAILY RF: 0 gabapentin 300 mg capsule 300 mg PO TID RF: 0 fluoxetine 20 mg capsule PO DAILY RF: 0 Stand-Alone Forms: [facility] Discharge Orders: Discharge Order (Routine); Ordered 12/27/18 Ordered By: Vlad Haskins Admission Data Admit Date/Time: 12/23/18 23:17 Attending Provider: Matias Arriola Admit Provider: Adán Cancino Primary Care Provider: Chelo Escamilla Other Providers: Adán Cancino ; Livier Villaseñor ; Armand Zavaleta ; Zack Horowitz Service: Telemetry Other Interventions: Discharge Summary Assessment (RN) Last Done: 12/27/18 11:42 DC Date/Time DO NOT enter until pt leaves facility: 12/27/18 13:43 Supervising Physician Co-Signing Physician Notes I personally examined the patient and verified all villanueva points of history and exam, discussed case, and agree with decision making with Dr Haskins. breathing feels better and headache has essentially resolved. no cp no sob. (dr hsakins had been alerted to ST depression appearance on monitor, leading to EKG and troponin orders, but pt without any anginal/cardiopulmonary symptoms and cardiac monitors have high false positive on ST changes). extensive discussions on pneumonia treatment, asthma treatment, cost of care and alternatives, DM self management and lifestyle change. Vitals noted, in general she is awake and alert pleasant, nad. breathing unlabored no accessory muscles no conversational dyspnea no accessory muscles good effort. cn 2-12 grossly intact gross motor/sensory intact. no pallor or icterus Community-acquired pneumonia/acute exacerbation of asthmaimproving. stable for home on PO abx and PO tapering steroids Headacheappears to have been tension headache, essentially resolved. fortunately no evidence of papilledema on ophthalmologic exam. Somatic dysfunction cervicalOMT done yesterday apppears to have helped tension headche New onset type 2 diabetesextensive education. Metformin. Discussed lifestyle management extensively Obstructive sleep apneafortunately does not appear to have obesity hypoventilation based on blood gas, will definitely need outpatient sleep study and education on importance/continuous churn buttermaker implications of untreated sleep apnea (was not personally able to get into that in as much detail as i would have liked, given time/rapport spent on discussions of asthma/pneumonia and DM). Essential hypertensionlisinopril. Uncertain history of CHF, continue to follow Morbid obesity with BMI of 61heavily contributing to above DVT prophylaxisLovenox utilized during her stay stable for home otherwise as above Resident Activity Tracking Resident Involvement: Resident Care Provided Care Provided: Adult Hospital Medicine
[2018-12-27] MEDS: GABAPENTIN 300 MG CAP PO SCH (08:28)
[2018-12-27] MEDS: FLUTICASONE HFA 220 MCG INHALER INH SCH (08:28)
[2018-12-27] MEDS: HydrALAZINE TAB 50 MG TAB PO SCH (08:28)
[2018-12-27] MEDS: AMOXICILLIN/CLAVULANATE 875 MG TAB PO SCH (08:28)
[2018-12-27] MEDS: LISINOPRIL 40 MG TAB PO SCH (08:28)
[2018-12-27] MEDS: predniSONE 20 MG TAB PO SCH (08:29)
[2018-12-27] MEDS: ENOXAPARIN INJ 40 MG/0.4 ML SYR SQ SCH (08:29)
--- NOTE | 2018-12-27 08:42 | Consultation Report ---
DATE OF CONSULTATION: 12/26/2018 I was consulted to see the patient on 12/26/2018. The question was whether or not there was evidence for papilledema in either eye. The patient is a 53-year-old female admitted for control of diabetes and pneumonia. Her past ophthalmic history is unremarkable. Her near vision corrects to J3 in each eye. She has no specific vision complaints. Her pupils react normally and her extraocular movements are full. Her external eye examination is completely normal. Using a direct ophthalmoscope, I was able to visualize the optic nerves and they did appear healthy in each eye without evidence for papilledema. In addition, there was no apparent diabetic retinopathy in either eye. I recommended that this patient followup upon discharge for a full and comprehensive ophthalmic examination.
[2018-12-27] MEDS: FLUOXETINE HCL 20 MG CAP PO SCH (09:07)
--- NOTE | 2018-12-27 11:04 | Pharmacy Report ---
Pharmacy Glycemic Short Note 2 - Date of Service December 27, 2018 - Glycemic Short BSG Results (Last 24 hours): 12/26/18 12/26/18 12/26/18 11:27 16:33 20:37 POC Glucose 172 H 159 H 350 H* 12/26/18 12/27/18 12/27/18 23:51 04:10 04:11 POC Glucose 89 66 L* 70 12/27/18 12/27/18 04:30 07:47 POC Glucose 84 72 OUTPATIENT ANTIDIABETIC REGIMEN: * N/A; newly diagnosed ASSESSMENT: 12/27 * Ms. Talavera had significantly improved BSGs during the day yesterday and then spiked at HS (350 mg/dL), with resultant hypoglycemia overnight. The spike later in the day was most likely from the steroids and then the overnight low resulted from additional basal in the evening. * She will still require basal insulin while on the steroids; however, I held the dose this AM due to her BSG dropping after initial correction with juice overnight. Lunch BSG only up to 103 mg/dL so will not resume basal until this evening (if patient is not discharged). * Patient is now most likely going home today so please refer to discharge recommendations below. 12/26 * Ms. Talavera received 136 units of insulin yesterday (60 of this being basal) * BSGs were starting to improve yesterday afternoon but fasting is elevated this AM. The patient refused overnight checks so she was unable to receive additional coverage overnight for high BSGs. The nurse confirmed with the patient this AM that she did NOT have any po intake prior to her fasting BSG this AM. * Will provide additional basal this AM only. Hyperglycemia may still be due to lower dose given 12/24 PM. * Since postprandial BSGs improved yesterday, will continue same CF/CR for now 12/25: * Patient received 97 units of insulin yesterday with BSGs all above goal * 42 units of basal insulin * 55 units of bolus insulin * She remains on high dose IV steroids: solu medrol 60 mg IV q6h -> decreased to 40 mg IV q6h starting @ 1500 today * Changes needed to insulin regimen: * Fasting BSG of 298 mg/dL is above goal. Patient was ordered to receive 25 units of Lantus last evening, however it is documented that she was only given 12 units (unsure of reason?). Lantus was increased to 30 units for this morning and will be ordered per scale at HS. * Post prandial BSGs have been consistently elevated despite tightening Novolog parameters yesterday. I will further tighten today. BSG trending down at lunchtime. 12/24: * Patient appears to be a new onset diabetic with an HbA1c of 8.4%, experiencing steroid induced hyperglycemia. High dose IV solumedrol to continue for now per MD. * Patient received 30 units lantus this morning in addition to 10 units IV regular to help lower BSG in the high 300s. * Will initiate a lantus scale for this evening based on BSG * Novolog coverage was initiated with a weight based stress of 2 correction factor. A more conservative carb coverage was initially selected given new diagnosis and amount of insulin already given this morning. However, this will likely need to be tightened with continued use of high dose steroids. PLAN FOR INPATIENT GLYCEMIC CONTROL: * Basal insulin - reduce * Lantus 30 units (0.2 units/kg) qHS * Further dosing in AM if patient is not discharged * Bolus insulin - no change * NovoLog per scale ACHS or Q6hrs while NPO * Goal Range: Low 110 mg/dL - High 140 mg/dL * Correction Factor: 15 mg/dL/unit * Nutritional / Prandial insulin per carb ratio of 1 unit per 5 grams CHO consumed PLAN FOR DISCHARGE: * New diagnosis, A1c 8.4% * Consider starting metformin ER 500 mg once daily with evening meal (500 mg BID if needing a cheaper option) * If sent home on steroids, her BSGs will be elevated until the metformin is titrated up. Could consider adding Amaryl 1 mg qAM while on prednisone > 20 mg/day. Otherwise, would be prudent for patient to monitor BSGs closely and watch CHO intake.
[2018-12-27] MEDS ORDERED: INSULIN GLARGINE SOLOSTAR 100 UNITS/ML 3 ML PEN SC SCH (21:00)
== END 2018-12-27 13:43 | disposition home or self-care (01) | DRG 193 ==
LOC: ED 19:36 → SUATTDRO 23:17 → 1E 23:17 → 2N 12-24 14:19

== ENCOUNTER 2020-09-26 21:25 | Inpatient (IN) ==
[2020-09-26] MEDS ORDERED: DEXAMETHASONE SOD INJ 10 MG/ML VIAL IV ONE (21:54)
[2020-09-26] MEDS ORDERED: SODIUM CHLORIDE 0.9% 1000ML 1,000 ML IV ONE (21:56)
[2020-09-26 22:27] LABS: Basophils # (auto) 0.01 K/uL (0-0.2); Basophils % (auto) 0.1 %; Eosinophils # (auto) 0.06 K/uL (0-0.5); Eosinophils % (auto) 0.4 %; Hematocrit (blood only) 46.3 % (37-47); Hemoglobin 15.6 g/dL (12.0-16.0); Immature Granulocytes # (auto) 0.05 K/uL (0.00-0.02); Immature Granulocytes % (auto) 0.4 %; Lymphocytes # (auto) 2.07 K/uL (1.2-3.4); Lymphocytes % (auto) 14.8 %; Mean Corpuscular Hemoglobin 30.1 pg (25-34); Mean Corpuscular Hgb Conc 33.7 g/dL (32-36); Mean Corpuscular Volume 89.2 fL (80-100); Mean Platelet Volume 12.3 fL (7.4-10.4); Monocytes % (auto) 5.7 %; Neutrophils # (auto) 10.96 K/uL (1.4-6.5); Neutrophils % (auto) 78.6 %; Platelet Count 223 K/uL (130-400); Red Blood Count 5.19 M/uL (4.2-5.4); White Blood Count 13.95 K/uL (4.8-10.8)
[2020-09-26 23:04] LABS: Albumin Globulin Ratio 0.7 (0.9-2); Albumin Level 3.2 gm/dl (3.4-5.0); BUN Creatinine Ratio 11.3 (10-20); Calcium 8.9 mg/dl (8.5-10.1); Creatinine Clr Calc Pharmacy 131.4 ml/min; Est GFR (African American) 111.9; Est GFR (Non-African American) 96.6; Globulin 4.3 gm/dl (2.5-4.0); Total Protein 7.5 gm/dl (6.4-8.2); Troponin I 0.092 ng/ml (0-0.045)
[2020-09-26 23:46] LABS: Base Excess ABG 1.2 mEq/L (-9-1.8); HCO3 ABG 26 mmol/L (19-24); PCO2 ABG 41 mmHg (35-46); PO2 ABG 64 mmHg (80-95); pH ABG 7.41 (7.35-7.45)
[2020-09-26 23:47] LABS: Potassium 3.2 mmol/L (3.5-5.1)
[2020-09-26 23:47] LABS: Allen Test POS (Pos)
[2020-09-26 23:48] LABS: Partial Thromboplastin Time 28.2 Seconds (21.0-31.0); Prothrombin Time 10.9 Seconds (9.0-12.0)
[2020-09-26 23:49] LABS: Influenza A virus by PCR Negative (Neg); Influenza B virus by PCR Negative (Neg); RSV by PCR Negative (Neg); SARS CoV2 RNA(COVID-19) InHosp NEGATIVE (Negative)
[2020-09-26 23:52] LABS: Magnesium 1.6 mg/dl (1.8-2.4)
[2020-09-26 23:58] LABS: D Dimer 880 ug/L FEU (0-500)
[2020-09-27] MEDS ORDERED: OPTIRAY 320 125ml IV ONE (00:11)
[2020-09-27] MEDS ORDERED: ALBUT/IPRATROP 3MG/0.5MG NEB 3 ML VIAL NEB STA (00:24)
--- NOTE | 2020-09-27 00:24 | Emergency Department Note ---
History of Present Illness General Chief complaint: Asthma Stated complaint: ASTHMA Time Seen by Provider: 09/26/20 21:47 History of Present Illness This 55-year-old asthmatic that vapes medical marijuana presents to the ER complaining of worsening dyspnea and wheezing who is been using her home nebulizers Location: Chest Quality: Hard to breathe Severity: Moderate Duration: Past few days Timing: Started 3 days ago Context: Symptoms got worse and patient came in Modifying factors: better with rest; worse with activity Patient states she has been staying at home and self quarantine since the [facility]. No known Covid exposures. She does have asthma. Patient states is hard for her to breathe. Patient denies chest pain, fever, chills, loss of taste, loss of smell, flulike illness. Home Medications Medication Instructions Recorded Confirmed Type albuterol sulfate 6 ml INHALATION Q6 PRN 08/12/18 09/26/20 History albuterol sulfate [Ventolin HFA] 2 puff INHALATION QID PRN 08/12/18 09/26/20 History hydralazine 50 mg PO TID 08/12/18 09/26/20 History atorvastatin 20 mg PO DAILY 07/03/19 09/26/20 History duloxetine 60 mg PO BID 07/03/19 09/26/20 History Flovent HFA 1 puff INHALATION BID PRN 09/26/20 09/26/20 History bupropion HCl 0 mg PO HS 09/26/20 09/26/20 History sitagliptin [Januvia] 100 mg PO DAILY 09/26/20 09/26/20 History Allergies Allergy/AdvReac Type Severity Reaction Status Date / Time bee venom protein (honey bee) Allergy Severe Anaphylaxis Verified 09/26/20 22:37 ibuprofen Allergy Mild swelling Verified 09/26/20 22:37 mushroom Allergy Mild swelling Verified 09/26/20 22:37 Past Med/Surg History Medical History (Updated 09/27/20 @ 01:08 by Debra Chaparro PA-C) Anemia Anxiety Asthma inhalers daily/prn Deep vein thrombosis in wrist after IV--no blood thinners Depression Diabetes mellitus, type 2 History of congestive heart failure History of pneumonia recent 12/27/18 HTN (hypertension) Migraine Surgical History History of bilateral tubal ligation History of section x2 History of cholecystectomy History of colonoscopy History of dilatation and curettage x2 History of nasal cauterization History of wisdom tooth extraction Family History Other No family history of adverse response to anesthesia Social History Smoking Status: Former smoker Tobacco Type: Cigarettes Second Hand Exposure: No; Hx Alcohol Use: Yes Alcohol type: wine Hx Substance Use: No Preferred Language: Hungarian Communication Ability: Effective Head Waiter Required: No Beliefs That Will Affect Care: None Current Living Situation: Family Current Living Situation Comment: Lives with kids Feels Safe at Home: Yes Assistive Devices: Nebulizer Review of Systems A total of 10 systems reviewed and were otherwise negative Physical Exam Vital Signs Vital Signs - 24 hr 09/26/20 21:27 09/26/20 21:54 09/26/20 22:12 Temperature 36.0 C L Temperature Source Temporal Artery Scan Pulse Rate 123 H 123 H Pulse Rate [Right Finger] Pulse Rate from SpO2 Sensor Pulse Rhythm [Right Finger] Pulse Strength [Right Finger] Respiratory Rate 40 H 40 H Respiratory Effort / Characteristics Short of Breath Short of Breath Respiratory Depth Blood Pressure 240/122 H Blood Pressure [Right Arm] Blood Pressure Mean 161 Blood Pressure Mean [Right Arm] Blood Pressure Position [Right Arm] Pulse Oximetry 85 L Oxygen Delivery Method Room Air Nasal Cannula Room Air Oxygen Flow Rate 3 Sepsis Recent Fever Within 48 Hours No Sepsis New/Unexplained Change in Mental Status No Sepsis Action Taken by Nursing No Action Required 09/26/20 22:30 09/26/20 22:57 09/26/20 23:30 Temperature Temperature Source Pulse Rate 109 H Pulse Rate [Right Finger] Pulse Rate from SpO2 Sensor 109 H Pulse Rhythm [Right Finger] Pulse Strength [Right Finger] Respiratory Rate 40 H 46 H Respiratory Effort / Characteristics Short of Breath Non-Labored Respiratory Depth Blood Pressure 211/110 H Blood Pressure [Right Arm] Blood Pressure Mean 143 Blood Pressure Mean [Right Arm] Blood Pressure Position [Right Arm] Pulse Oximetry 92 93 Oxygen Delivery Method Nasal Cannula Nasal Cannula Oxygen Flow Rate 3 2 Sepsis Recent Fever Within 48 Hours Sepsis New/Unexplained Change in Mental Status Sepsis Action Taken by Nursing 09/27/20 01:30 Temperature Temperature Source Pulse Rate Pulse Rate [Right Finger] 105 H Pulse Rate from SpO2 Sensor Pulse Rhythm [Right Finger] Regular Pulse Strength [Right Finger] Normal Respiratory Rate 20 Respiratory Effort / Characteristics Respiratory Depth Normal Blood Pressure Blood Pressure [Right Arm] 157/114 H Blood Pressure Mean Blood Pressure Mean [Right Arm] 128 Blood Pressure Position [Right Arm] Lying Pulse Oximetry 94 Oxygen Delivery Method Nasal Cannula Oxygen Flow Rate 2 Sepsis Recent Fever Within 48 Hours Sepsis New/Unexplained Change in Mental Status Sepsis Action Taken by Nursing PHYSICAL EXAM: Vital Signs: Reviewed Nurse's notes. Oxygen saturation was 85% on room air. GENERAL: Pleasant female working to breathe on oxygen, Alert, oriented and coherent. The patient is not able to speak in complete sentences. NECK: Supple, non-tender. CHEST: Symmetrical expansion. + retractions + accessory muscle use. HEART: Regular rate and normal heart sounds LUNGS: Breath sounds equal but significantly diminished in intensity on both sides. Bilateral wheezes heard but no rales or pleuritic rub. SKIN: The skin was without rashes, erythema, edema, or bruising. There is no tenting of the skin. Capillary reflex less than 2 seconds. HEAD: Normocephalic atraumatic. EARS: External auditory canals clear, tympanic membranes pearly deleon without erythema or effusion bilaterally. EYES: Pupils equal round and reactive to light and accommodation. Conjunctivae without injection, sclerae without icterus. Extraocular movements intact. NOSE: Patent, turbinates without inflammation or discharge. MOUTH: Mucous membranes moist. Pharynx without erythema or exudate. Uvula midline. Airway patent. Tongue does not deviate. ABDOMEN: Positive bowel sounds x 4. Normal tympanic percussion. Soft, nontender, without masses or organomegaly. Garrison sign negative. No guarding or rebound tenderness. MUSCULOSKELETAL: No muscle atrophy, erythema, noted. NEURO: Patient was alert and oriented to person place and time. Normal sensation to light and sharp touch. No focal neurological deficits. Course Administered Medications Magnesium Sulfate/Dextrose (Magnesium Sulfate / D5w) 1 gm in 100 mls @ 100 mls/hr IV Q1H MARCELIAN Stop: 09/27/20 03:02 Last Admin: 09/27/20 01:27 Dose: 100 mls/hr Documented by: [id number] Discontinued Medications Albuterol (Albut/Ipratrop 3mg/0.5mg Neb 3 Ml Vial) 3 ml NEB NOW STA Stop: 09/27/20 00:25 Last Admin: 09/27/20 01:03 Dose: Not Given Documented by: [id number] Dexamethasone (Dexamethasone Sod Inj 10 Mg/Ml Vial) 10 mg IV NOW ONE Stop: 09/26/20 21:55 Last Admin: 09/26/20 23:00 Dose: 10 mg Documented by: [id number] Sodium Chloride (Nss 1000ml) 1,000 mls @ 999 mls/hr IV .Q1H1M ONE Stop: 09/26/20 22:56 Last Infusion: 09/27/20 00:53 Dose: 0 mls/hr Documented by: [id number] Admin: 09/26/20 23:00 Dose: 999 mls/hr Documented by: [id number] Acetaminophen (Ofirmev) 1,000 mg in 100 mls @ 400 mls/hr IV NOW STA Stop: 09/27/20 01:16 Last Admin: 09/27/20 01:27 Dose: 400 mls/hr Documented by: [id number] Ioversol (Optiray 320 125ml) 118 ml IV ONCE ONE Stop: 09/27/20 00:12 Last Admin: 09/27/20 00:11 Dose: 118 ml Documented by: [id number] Potassium Chloride (Potassium Chloride 10 Meq Tabcr) 30 meq PO NOW STA Stop: 09/27/20 01:03 Last Admin: 09/27/20 01:27 Dose: 30 meq Documented by: [id number] Medical Decision Making Medical Records Attestation: I reviewed the patient's medical records. Home Medications Current Medication List: was personally reviewed by me Laboratory Data Attestation: I reviewed the patient's lab results. Result diagrams: 09/26/20 22:16 09/26/20 23:24 Lab Results 09/26/20 09/26/20 09/26/20 Range/Units 22:16 22:16 22:16 WBC 13.95 H (4.8-10.8) K/uL RBC 5.19 (4.2-5.4) M/uL Hgb 15.6 (12.0-16.0) g/dL Hct 46.3 (37-47) % MCV 89.2 (80-100) fL MCH 30.1 (25-34) pg MCHC 33.7 (32-36) g/dL RDW Std Deviation 45.0 (36.4-46.3) fL RDW Coeff of Anup 14.0 (11.5-14.5) % Plt Count 223 (130-400) K/uL MPV 12.3 H (7.4-10.4) fL Immature Gran % (Auto) 0.4 % Neut % (Auto) 78.6 % Lymph % (Auto) 14.8 % [place] % (Auto) 5.7 % Eos % (Auto) 0.4 % Baso % (Auto) 0.1 % Neut # (Auto) 10.96 H (1.4-6.5) K/uL Lymph # (Auto) 2.07 (1.2-3.4) K/uL [place] # (Auto) 0.80 H (0.11-0.59) K/uL Eos # (Auto) 0.06 (0-0.5) K/uL Baso # (Auto) 0.01 (0-0.2) K/uL Immature Gran # (Auto) 0.05 H (0.00-0.02) K/uL PT Cancelled INR Cancelled APTT Cancelled PTT Ratio Cancelled D-Dimer Cancelled ABG pH (7.35-7.45) ABG pCO2 (35-46) mmHg ABG pO2 (80-95) mmHg ABG HCO3 (19-24) mmol/L ABG O2 Saturation (90-95) % ABG Base Excess (-9-1.8) mEq/L Dudley Test (Pos) Barometric Pressure mm/Hg Oxygen Given Sodium 139 (136-145) mmol/L Potassium (3.5-5.1) mmol/L Chloride 107 (98-107) mmol/L Carbon Dioxide 25 (21-32) mmol/L Anion Gap 8.0 (3-11) BUN 8 (7-18) mg/dl Creatinine 0.71 (0.6-1.2) mg/dl Est Cr Clr Drug Dosing 131.4 ml/min Est GFR ( Amer) 111.9 Est GFR (Non-Af Amer) 96.6 BUN/Creatinine Ratio 11.3 (10-20) Glucose 159 H (70-99) mg/dl Lactate (0.4-2.0) mmol/L Calcium 8.9 (8.5-10.1) mg/dl Magnesium (1.8-2.4) mg/dl Total Bilirubin 1.0 (0.2-1) mg/dl AST (15-37) U/L ALT 60 (12-78) U/L Alkaline Phosphatase 97 (45-117) U/L Troponin I 0.092 H* (0-0.045) ng/ml Total Protein 7.5 (6.4-8.2) gm/dl Albumin 3.2 L (3.4-5.0) gm/dl Globulin 4.3 H (2.5-4.0) gm/dl Albumin/Globulin Ratio 0.7 L (0.9-2) COVID-19 Eval Order SARS-CoV-2 (PCR) (Negative) Influenza Type A (PCR) (Neg) Influenza Type B (PCR) (Neg) RSV (RT-PCR) (Neg) 09/26/20 09/26/20 09/26/20 Range/Units 22:55 22:55 23:23 WBC (4.8-10.8) K/uL RBC (4.2-5.4) M/uL Hgb (12.0-16.0) g/dL Hct (37-47) % MCV (80-100) fL MCH (25-34) pg MCHC (32-36) g/dL RDW Std Deviation (36.4-46.3) fL RDW Coeff of Anup (11.5-14.5) % Plt Count (130-400) K/uL MPV (7.4-10.4) fL Immature Gran % (Auto) % Neut % (Auto) % Lymph % (Auto) % [place] % (Auto) % Eos % (Auto) % Baso % (Auto) % Neut # (Auto) (1.4-6.5) K/uL Lymph # (Auto) (1.2-3.4) K/uL [place] # (Auto) (0.11-0.59) K/uL Eos # (Auto) (0-0.5) K/uL Baso # (Auto) (0-0.2) K/uL Immature Gran # (Auto) (0.00-0.02) K/uL PT INR APTT PTT Ratio D-Dimer ABG pH (7.35-7.45) ABG pCO2 (35-46) mmHg ABG pO2 (80-95) mmHg ABG HCO3 (19-24) mmol/L ABG O2 Saturation (90-95) % ABG Base Excess (-9-1.8) mEq/L Dudley Test (Pos) Barometric Pressure mm/Hg Oxygen Given Sodium (136-145) mmol/L Potassium (3.5-5.1) mmol/L Chloride (98-107) mmol/L Carbon Dioxide (21-32) mmol/L Anion Gap (3-11) BUN (7-18) mg/dl Creatinine (0.6-1.2) mg/dl Est Cr Clr Drug Dosing ml/min Est GFR ( Amer) Est GFR (Non-Af Amer) BUN/Creatinine Ratio (10-20) Glucose (70-99) mg/dl Lactate 1.4 (0.4-2.0) mmol/L Calcium (8.5-10.1) mg/dl Magnesium (1.8-2.4) mg/dl Total Bilirubin (0.2-1) mg/dl AST (15-37) U/L ALT (12-78) U/L Alkaline Phosphatase (45-117) U/L Troponin I (0-0.045) ng/ml Total Protein (6.4-8.2) gm/dl Albumin (3.4-5.0) gm/dl Globulin (2.5-4.0) gm/dl Albumin/Globulin Ratio (0.9-2) COVID-19 Eval Order CovFluRsv at [facility] SARS-CoV-2 (PCR) NEGATIVE (Negative) Influenza Type A (PCR) Negative (Neg) Influenza Type B (PCR) Negative (Neg) RSV (RT-PCR) Negative (Neg) 09/26/20 09/26/20 09/26/20 Range/Units 23:23 23:24 23:25 WBC (4.8-10.8) K/uL RBC (4.2-5.4) M/uL Hgb (12.0-16.0) g/dL Hct (37-47) % MCV (80-100) fL MCH (25-34) pg MCHC (32-36) g/dL RDW Std Deviation (36.4-46.3) fL RDW Coeff of Anup (11.5-14.5) % Plt Count (130-400) K/uL MPV (7.4-10.4) fL Immature Gran % (Auto) % Neut % (Auto) % Lymph % (Auto) % [place] % (Auto) % Eos % (Auto) % Baso % (Auto) % Neut # (Auto) (1.4-6.5) K/uL Lymph # (Auto) (1.2-3.4) K/uL [place] # (Auto) (0.11-0.59) K/uL Eos # (Auto) (0-0.5) K/uL Baso # (Auto) (0-0.2) K/uL Immature Gran # (Auto) (0.00-0.02) K/uL PT 10.9 INR 1.0 APTT 28.2 PTT Ratio 1.0 D-Dimer 880 H* ABG pH 7.41 (7.35-7.45) ABG pCO2 41 (35-46) mmHg ABG pO2 64 L (80-95) mmHg ABG HCO3 26 H (19-24) mmol/L ABG O2 Saturation 92.0 (90-95) % ABG Base Excess 1.2 (-9-1.8) mEq/L Dudley Test POS (Pos) Barometric Pressure 736.9 mm/Hg Oxygen Given 3L O2 Sodium (136-145) mmol/L Potassium 3.2 L (3.5-5.1) mmol/L Chloride (98-107) mmol/L Carbon Dioxide (21-32) mmol/L Anion Gap (3-11) BUN (7-18) mg/dl Creatinine (0.6-1.2) mg/dl Est Cr Clr Drug Dosing ml/min Est GFR ( Amer) Est GFR (Non-Af Amer) BUN/Creatinine Ratio (10-20) Glucose (70-99) mg/dl Lactate (0.4-2.0) mmol/L Calcium (8.5-10.1) mg/dl Magnesium 1.6 L (1.8-2.4) mg/dl Total Bilirubin (0.2-1) mg/dl AST 26 (15-37) U/L ALT (12-78) U/L Alkaline Phosphatase (45-117) U/L Troponin I (0-0.045) ng/ml Total Protein (6.4-8.2) gm/dl Albumin (3.4-5.0) gm/dl Globulin (2.5-4.0) gm/dl Albumin/Globulin Ratio (0.9-2) COVID-19 Eval Order SARS-CoV-2 (PCR) (Negative) Influenza Type A (PCR) (Neg) Influenza Type B (PCR) (Neg) RSV (RT-PCR) (Neg) Imaging Data Attestation: I personally reviewed and interpreted this imaging study as follows: MDM Narrative Prior records/ancillary studies reviewed. Triage Nursing notes reviewed. Additional history obtained from the family. The patient's history was concerning for respiratory difficulties. Differential diagnosis: Etiologies such as infections, reactive airway disease, pneumonia, pneumothorax, COPD, CHF, cardiac ischemia, pulmonary embolism, musculoskeletal, gastrointestinal, as well as others were entertained. Physical examination: As above. ER treatment provided: An order was placed for continuous cardiac monitoring. The monitor shows a rate of 70-1 20 with a sinus rhythm. Decadron, nebulizer, magnesium, potassium, Tylenol, IV fluids, Zosyn On reassessment the patient felt better. Diagnostic interpretation by me: The electrocardiogram was ordered for dyspnea EKG: Normal sinus, T wave inversions in aVL and V6, left ventricular hypertrophy, rate of 101. Impression sinus tachycardia with left ventricular hypertrophy with T wave versions interpreted by myself I think arrhythmia is unlikely. EKG shows normal sinus rhythm with no interval abnormalities such as QT prolongation or WPW. There are no findings to suggest Brugada syndrome. Cardiac monitoring in the emergency department reveals no tachycardic or bradycardic dysrhythmia. Hypertrophic cardiomyopathy was consider ed but there are no clear historical elements pointing toward this. EKG is not suggestive. The QRS voltage is not extremely large and there are no suggestive Q waves. The labs revealed elevated troponin Elevated D-dimer Covid test negative Blood cultures pending Mild leukocytosis Negative lactic Imaging studies: Chest x-ray with cardiomegaly and patchy infiltrates per my interpretation CTA CHEST: The pulmonary arterial tree is well-opacified with contrast. There is motion artifact blurring the lower lobe pulmonary artery branches. No pulmonary emboli are identified. Lung windows reveal scattered rounded interstitial infiltrates greatest in the mid to lower lungs bilaterally likely a combination of Covid 19 pneumonia and subsegmental atelectasis. No pneumothorax or pleural effusion is seen. The heart is enlarged. No pericardial effusion is seen. There is reflux of contrast into the IVC and hepatic veins suggesting CHF. No mediastinal or axillary lymph adenopathy or mass is seen. Radiologist: Edwar Haskins MD Consultation: A consultation was placed with Dr. Yanes, hospitalist. The case was discussed and diagnostics were reviewed. The patient was evaluated in the ER for further treatment. This appears to be consistent with asthma exacerbation with multifocal pneumonia on imaging and a negative Covid test. Patient's O2 improved with nasal cannula. She was started on steroids and magnesium potassium and antibiotics. Medicine was consulted. ABG was reviewed. She is agreeable treatment plan of admission. By the evaluation outlined above emergent etiologies such as CHF, pulmonary embolism, pneumothorax, musculoskeletal, as well as others were deemed rel atively unlikely. The pt informed about the findings as listed above. All questions were answered and pleased with the treatment. The chart was completed utilizing [employer] Speech voice recognition software. Grammatical errors, random word insertions, pronoun errors, and incomplete sentences are an occassional consequence of this system due to software limitations, ambient noise, and hardware issues. Any formal questions or concerns about the content, text, or information contained within the body of this dictation should be directly addressed to the physician assistant to the vice president for clarification. Impression & Plan Multifocal pneumonia, Asthma exacerbation, Hypoxemia, Hypomagnesemia, Acute hypokalemia Discharge Plan Visit Data Chief Complaint: Asthma Stated Complaint: ASTHMA ED Provider: Wojciech Posadas ED Midlevel Provider: Debra Chaparro Discharge Problem: Multifocal pneumonia, Asthma exacerbation, Hypoxemia, Hypomagnesemia, Acute hypokalemia Patient Disposition: Admitted As Inpatient Condition: Fair Forms Stand Alone Forms: [facility] Prescriptions Prescriptions: No Action atorvastatin 20 mg tablet 20 mg PO DAILY RF: 0 duloxetine 60 mg capsule,delayed release(DR/EC) 60 mg PO BID RF: 0 Januvia 100 mg tablet 100 mg PO DAILY RF: 0 Flovent HFA 220 mcg/actuation HFA aerosol inhaler 1 puff inhalation BID PRN (Reason: Shortness Of Breath Or Wheezing) RF: 0 bupropion HCl 300 mg tablet extended release 24 hr 0 mg PO HS RF: 0 albuterol sulfate 2.5 mg /3 mL (0.083 %) solution for nebulization 6 ml Inhalation Q6 PRN (Reason: Shortness Of Breath) RF: 0 hydralazine 50 mg Tablet 50 mg PO TID RF: 0 albuterol sulfate [Ventolin HFA] 90 mcg/actuation Hfa Aerosol Inhaler 2 puff INHALATION QID PRN (Reason: Shortness Of Breath) RF: 0 Referrals Referrals: Loreta Smith [Primary Care Provider] -
[2020-09-27] MEDS ORDERED: ACETAMINOPHEN 1,000 MG/100 ML VIAL IV STA (01:02)
[2020-09-27] MEDS ORDERED: POTASSIUM CHLORIDE 10 MEQ TABCR PO STA (01:02)
[2020-09-27] MEDS ORDERED: PIPERACILL/TAZOBAC CONSULT ACTIVE PRN (01:04)
[2020-09-27] MEDS ORDERED: PIPERACILLIN/TAZOBACTAM 4.5 GM/120 ML BAG IV ONE (01:04)
[2020-09-27] MEDS: MAGNESIUM SULFATE / D5W 1 GM/100 ML BAG IV SCH ×2 (01:27→03:42)
--- NOTE | 2020-09-27 02:32 | History & Physical Report ---
Date of Service September 27, 2020 Assessment & Plan (1) Acute respiratory failure with hypoxemia: Ms. Talavera is a 55 yo woman with a PMHx of asthma who is being admitted to [facility] for acute respiratory failure with hypoxemia, thought to be secondary to an asthma exacerbation. - Chest CTA showing bibasilar opacities typical of a COVID 19 appearance and/or atelectasis; official read pending. - COVID 19 test negative on admission, suspect opacities represent atelectasis - supplemental O2 as needed to maintain O2 sat above 90 - incentive spirometry q4hwa - treat asthma exacerbation (see below) (2) Asthma exacerbation: - continue Duo Neb qid + q2h prn - 1 dose of Zosyn given in ED. will discontinue Zosyn at this time. Will initiate doxycyline (over azithromycin due to elongated QTc) both for pulmonary anti-inflammatory effect and in the event opacities represent a developing PNA - start Symbicort while inpatient. Recommend patient connect with case management to see what ICS/LABA combo inhaler would be affordable as outpatient - patient given Decadron 10mg in ED. will hold off on further steroids at this time - recommend serial assessment of breathing with YG nebulizers therapy- consider solu-medrol vs. prednisone if no significant improvement - patient has been on Singulair in the past - consider restarting - Mucinex 600mg daily - etiology of asthma exacerbation thought to be medication non-compliance. It sounds like patient has a maintenance inhaler (although she is unsure of which one) but has not been using on a daily basis. - educate on maintenance inhaler + albuterol rescue use (3) DAISY (obstructive sleep apnea): - it is unclear if patient has ever had formal sleep study, although this diagnosis appears on her problem list - I suspect there is a component of obesity hypoventilation syndrome as well - I have ordered a CPAP for her to use here in the hospital - recommend polysomnography as outpatient (4) DMII (diabetes mellitus, type 2): - last HbA1c above goal at 8.4 in 11/2018 - patient was on Januvia in the past - it sounds like she has been without this medication over the past year while homeless - HbA1c ordered for am - BSG ACHS - Lantus insulin 10 units BID + sliding scale Novolog ordered while inpatient - hypoglycemia protocol - continue losartan and atorvastatin. Consider increasing atorvastatin from 20 to 40mg daily (high intensity) (5) Hypomagnesemia: - level 1.6 on admission - replacement ordered in ED - repeat level in AM (6) Acute hypokalemia: - K 3.2 on admission - 30meq replacement ordered in ED - may be secondary to hypomagnesium - repeat BMP in am (7) HTN (hypertension): - hypertensive urgency with BP 240/122 on admission - losartan 25mg, qam ordered. There is room to titrate this medication up if necessary - patient was on Hydralazine 50mg TID in the past; consider restarting. Beta blockers not favorable in asthmatics. (8) Pulmonary hypertension: - PA pressure noted to be elevated to 50 mmhg on echo from 11/2018 - likely secondary to untreated DAISY - repeat echo in am - CPAP qhs while inpatient + sleep study as outpatient (9) Elevated troponin: - trop 0.092 on admission - EKG in NSR without acute ST segment changes - suspect demand/supply mismatch - repeat trop in am - echo in am (10) Diastolic dysfunction: - grade I diastolic dysfunction noted on echo from 11/2018. Normal LV systolic function, EF 55-60%. - reflux of contrast in IVC noted on Chest CTA on admission concerning for R sided heart failure - may be secondary to elevated pulmonary artery pressure (pulmonary HTN) - will repeat Echo in am (11) Depression with anxiety: - hydroxyzine 25mg once ordered on admission - restart Wellbutrin 150mg, daily Dispo: Med/Surg with tele Diet: Carb Consistent, Heart Healthy, Low Salt DVT ppx: Lovenox Code: Full, I discussed with patient History of Present Illness Primary Care Provider: Loreta Smith Ms. Talavera is a 55 yo woman with a PMHx of morbid obesity, DAISY + obesity hypoventilation syndrome, asthma, type II diabetes mellitus and HTN who presented to the emergency department for progressive SOB over the past 3 days. She endorses associated wheezing, nasal congestion and cough. She denies any fever/chills or chest pain. She has a nebulizer machine at home and tried two cartridges of albuterol, but they did not markedly improve her breathing. When asked what her home asthma medication regimen, she states that she has two types of inhalers, one of which is albuterol - but she cannot recall the name of the second. She says she uses them both when she feels SOB - ie she does not use either on a routine basis. She has been hospitalized once previously at [facility] in 2019 for an asthma exacerbation - which included an ICU stay, although she was never intubated. Mrs. Talavera has been diagnosed with obstructive sleep apnea - but she has never used a CPAP machine (other than when she was hospitalized in 2019). She also has a history of depression and anxiety - previously she was connected with a psychiatrist at [place]. She has been trialed on Wellbutrin, Cymbalta, Fluoxetine and hydroxyzine in the past. Patient does not seem to have keen knowledge of the names of her medications and which were effective. She has a medical marijuana card for anxiety - the substance is delivered via a vaping apparatus. She says her anxiety was high right now. When discussing her other chronic health conditions, Mrs. Talavera erupts into tears - she reports she lost her house in 05/2019 and was homeless for a year. During this time she was unable to fill most of her prescription medications (including inhalers, anti-hypertensives, Januvia, and anxiety medications). She is now living with her grandson in a townhouse in [place]. social Hx: former tobacco smoker, quit 2006. Smoked a couple of cigarettes per day for 10-15 years. On arrival to the ED, she was febrile, HR was 123, BP was 240/122, RR 40, O2 sat 85 on room air. Her WBC was mildly elevated to 13, Hgb normal. K low at 3.2. Mag low at 1.6. Cr normal. Trop elevated to 0.092. Respiratory Biofire negative for RSV, COVID 19 and Influenza. UA ordered. ABG showing PH of 7.41, bicarb of 25, PO2 64. D-dimer elevated to 880. EKG showing NSR. Chest CTA showing no evidence of pulmonary embolism, no pneumothorax or pleural effusion; bibasilar opacities and cardiomegaly (official read pending). She was given 1 liter of NSS, Tylenol 1g, Decadron 10mg, Zosyn, 1 nebulizer treatment, 30meq Kcl and magnesium. She was also given an albuterol nebulizer treatment adn placed on supplemental ox ygen. Allergies Allergy/AdvReac Type Severity Reaction Status Date / Time bee venom protein (honey bee) Allergy Severe Anaphylaxis Verified 09/26/20 22:37 ibuprofen Allergy Mild swelling Verified 09/26/20 22:37 mushroom Allergy Mild swelling Verified 09/26/20 22:37 Home Medications Medication Instructions Recorded Confirmed Type albuterol sulfate 6 ml INHALATION Q6 PRN 08/12/18 09/26/20 History albuterol sulfate [Ventolin HFA] 2 puff INHALATION QID PRN 08/12/18 09/26/20 History hydralazine 50 mg PO TID 08/12/18 09/26/20 History atorvastatin 20 mg PO DAILY 07/03/19 09/26/20 History duloxetine 60 mg PO BID 07/03/19 09/26/20 History Flovent HFA 1 puff INHALATION BID PRN 09/26/20 09/26/20 History bupropion HCl 0 mg PO HS 09/26/20 09/26/20 History sitagliptin [Januvia] 100 mg PO DAILY 09/26/20 09/26/20 History Past Med/Surg History Medical History (Updated 09/27/20 @ 03:50 by Ankita Coronado MD) Anemia Anxiety Asthma inhalers daily/prn Deep vein thrombosis in wrist after IV--no blood thinners Depression Diabetes mellitus, type 2 History of congestive heart failure History of pneumonia recent 12/27/18 HTN (hypertension) Migraine Surgical History History of bilateral tubal ligation History of section x2 History of cholecystectomy History of colonoscopy History of dilatation and curettage x2 History of nasal cauterization History of wisdom tooth extraction Family History Other No family history of adverse response to anesthesia Social History Smoking Status: Former smoker Tobacco Type: Cigarettes Second Hand Exposure: No; Hx Alcohol Use: No Hx Substance Use: No Preferred Language: Uzbek Communication Ability: Effective 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 Beliefs That Will Affect Care: None marital status: Current Living Situation: Family Current Living Situation Comment: teen grandson How many Children do You have: 4 Feels Safe at Home: Yes Assistive Devices: Glasses and Oxygen - Continuous Review of Systems Constitutional: no fever and no chills Respiratory: + cough, + dyspnea and + wheezing Cardiovascular: no chest pain Physical Exam Constitutional: + morbidly obese and cooperative Eyes: + anicteric sclerae ENMT: external ear and nose normal, oropharynx normal Neck: normal visual inspection and trachea midline Respiratory: + labored breathing and + cough Auscultation: + wheezes (diffuse throughout b/l lung mei); no crackles, no rales and no pleural rub Cardiovascular: Rate/Rhythm: regular rhythm and + tachycardic Heart Sounds: normal S1 and normal S2; no murmur Extremities: + pedal edema (1 + bilaterally) Gastrointestinal (Abdomen): normal bowel sounds, soft, nontender, no hepatosplenomegaly Skin: no rashes, warm and dry Neurologic: moves all extremities Psychiatric: Affect: + anxious affect and + tearful affect Results & Data Results & Data ([facility]) Vital Signs (Past 12 Hours) Vital Signs Temp Pulse Pulse Resp BP BP Pulse Ox 09/27/20 01:30 105 H 20 157/114 H 94 09/26/20 23:30 93 09/26/20 22:57 109 H 46 H 211/110 H 92 09/26/20 22:30 40 H 09/26/20 21:54 123 H 40 H 09/26/20 21:27 36.0 C L 123 H 40 H 240/122 H 85 L Supervising Physician Co-Signing Physician Notes Attending addendum: I have physically seen this patient, have supervised the medical residents activities, and agree with the H&P unless as otherwise noted. Assessment and Plan: Acute respiratory failure with hypoxia/asthma exacerbation- Start Symbicort 1 puff twice daily with spacer Guaifenesin extended release 600 mg p.o. twice daily Given Decadron 10 mg IV by the ED We will add Solu-Medrol in the a.m. if needed Doxycycline 100 mg p.o. twice daily Albuterol HFA 2 puffs every 2 hours as needed with spacer Patient does have a nebulizer unit at home. Upon discharge need to verify that she has up-to-date albuterol cartridges. Consider addition of Pulmicort Respules 0.5 mg inhaled twice daily as needed for home use Obstructive sleep apnea- CPAP use at bedtime as needed Diabetes mellitus- Lantus insulin and sliding scale as noted Check hemoglobin A1c Hyperlipidemia- Continue atorvastatin Check a fasting lipid panel Remaining orders and notations as noted Resident Activity Tracking Resident Involvement: Resident Care Provided Care Provided: Adult Hospital Medicine
[2020-09-27] MEDS ORDERED: GLUCAGON FOR INJ 1 MG VIAL SQ PRN (03:06)
[2020-09-27] MEDS ORDERED: AZITHROMYCIN 500 MG in DEXTROSE 5% 250 ML IV SCH (03:06)
[2020-09-27] MEDS ORDERED: GLUCOSE 40% GEL 15 GM TUBE PO PRN (03:06)
[2020-09-27] MEDS ORDERED: ONDANSETRON INJ 2 MG/ML 2 ML VIAL IV PRN (03:06)
[2020-09-27] MEDS ORDERED: DEXTROSE 50% 50 ML SYRINGE IV PRN (03:06)
[2020-09-27] MEDS ORDERED: GLUCOSE 10 TABS/TUBE PO PRN (03:06)
[2020-09-27] MEDS ORDERED: hydrOXYzine HCl 25 MG TAB PO STA (03:06)
[2020-09-27] MEDS ORDERED: POLYETHYLENE (MIRALAX) 17 GM PACK PO PRN (03:06)
[2020-09-27] MEDS ORDERED: CARBOHYDRATES FOR HYPOGLYCEMIA PO PRN (03:06)
[2020-09-27] MEDS ORDERED: INFLUENZA ADMINISTRATION CHARGE ONE (03:18)
[2020-09-27] MEDS ORDERED: INFLUENZA VIRUS QUAD VACCINE 0.5 ML SYR IM ONE (03:18)
[2020-09-27] MEDS ORDERED: PNEUMOCOCCAL ADMINISTRATION CHARGE ONE (03:18)
[2020-09-27] MEDS ORDERED: PNEUMOCOCCAL POLYSACCHARIDES 25 MCG/0.5 ML VIAL/SYR IM ONE (03:18)
[2020-09-27] MEDS ORDERED: LOSARTAN POTASSIUM 25 MG TAB PO STA (03:36)
[2020-09-27] MEDS: ALBUT/IPRATROP 3MG/0.5MG NEB 3 ML VIAL NEB PRN ×2 (04:10→09:36)
[2020-09-27] MEDS: DOXYCYCLINE HYCLATE 100 MG in DEXTROSE 5% 100 ML IV SCH ×2 (04:13→14:07)
[2020-09-27 05:18] LABS: Appearance Urine Clear (Clear); Bacteria Urine Automated Negative (Negative); Bilirubin Urine Negative (Negative); Blood Urine 1+ (Negative); Cast Urine Automated 0 /lpf (0-5); Color Urine Yellow; Epithelial Cell Urine Auto >30 /lpf (0-5); Glucose Urine UA 2+ (Negative); Ketones Urine Trace (Negative); Leukocyte Esterase Urine Trace (Negative); Nitrite Urine Negative (Negative); Protein Urine 3+ (Negative); RBC Urine Automated 0-4 /hpf (0-4); Urobilinogen Urine Negative (Negative)
[2020-09-27 06:12] LABS: Basophils # (auto) 0.01 K/uL (0-0.2); Basophils % (auto) 0.1 %; Hematocrit (blood only) 43.8 % (37-47); Hemoglobin 14.4 g/dL (12.0-16.0); Immature Granulocytes # (auto) 0.04 K/uL (0.00-0.02); Immature Granulocytes % (auto) 0.4 %; Lymphocytes # (auto) 0.79 K/uL (1.2-3.4); Lymphocytes % (auto) 7.2 %; Mean Corpuscular Hemoglobin 29.3 pg (25-34); Mean Corpuscular Hgb Conc 32.9 g/dL (32-36); Mean Corpuscular Volume 89.2 fL (80-100); Mean Platelet Volume 12.4 fL (7.4-10.4); Monocytes # (auto) 0.12 K/uL (0.11-0.59); Monocytes % (auto) 1.1 %; Neutrophils # (auto) 9.98 K/uL (1.4-6.5); Neutrophils % (auto) 91.2 %; Platelet Count 276 K/uL (130-400); RDW Coefficient of Variation 13.9 % (11.5-14.5); RDW Standard Deviation 45.3 fL (36.4-46.3); Red Blood Count 4.91 M/uL (4.2-5.4); White Blood Count 10.94 K/uL (4.8-10.8)
[2020-09-27 06:25] LABS: Estimated Average Glucose 169 mg/dl; Hemoglobin A1C 7.5 % (4.5-5.6)
[2020-09-27 06:54] LABS: BUN Creatinine Ratio 14.1 (10-20); Calcium 8.2 mg/dl (8.5-10.1); Creatinine Clr Calc Pharmacy 142.2 ml/min; Est GFR (African American) 116.1; Est GFR (Non-African American) 100.1; Magnesium 2.2 mg/dl (1.8-2.4); Potassium 3.5 mmol/L (3.5-5.1); Troponin I 0.09 ng/ml (0-0.045)
[2020-09-27] MEDS: ALBUT/IPRATROP 3MG/0.5MG NEB 3 ML VIAL NEB SCH ×4 (07:24→19:50)
[2020-09-27] MEDS: LOSARTAN POTASSIUM 25 MG TAB PO SCH (07:58)
[2020-09-27] MEDS: ATORVASTATIN 20 MG TAB PO SCH (07:58)
[2020-09-27] MEDS: guaiFENesin 600 MG TABCR PO SCH ×2 (07:58→21:05)
[2020-09-27] MEDS ORDERED: PIPERACILLIN/TAZOBACTAM 4.5 GM in DEXTROSE 5% 100 ML IV SCH (08:00)
--- NOTE | 2020-09-27 08:04 | CT Scan Report ---
CHEST CTA for PULMONARY ARTERIES CT DOSE: 984.64 mGy.cm HISTORY: Shortness of breath. TECHNIQUE: Multiaxial CT images of the chest were performed following the intravenous administration of contrast to evaluate the pulmonary arteries. Maximal intensity projection images were also obtaine d. A dose lowering technique was utilized adhering to the principles of ALARA. COMPARISON STUDY: Chest CTA 12/23/2018. FINDINGS: Respiratory motion artifact results in nondiagnostic evaluation of some of the bilateral lo wer lung zone segmental and subsegmental pulmonary arteries. However, no definite filling defects wit hin the visualized pulmonary arteries to suggest pulmonary embolus. The main pulmonary artery is dila filiberto up to 3.6 cm. This remains unchanged and is consistent with pulmonary arterial hypertension. The heart remains mildly enlarged. No pleural or pericardial effusions. Normal caliber thoracic aorta. In adequate contrast within the aorta to evaluate for dissection. There is small amount of retrograde op acification of contrast into the hepatic veins. The visualized liver and spleen are unremarkable. Nor mal caliber esophagus. Mild mediastinal lymphadenopathy which has progressed. Dominant prevascular ly mph node measures 19 x 14 mm. This is measured 13 x 8 mm. No suspicious lytic are blastic osseous les ions. No pneumothorax. The central airways demonstrate mild bronchial wall thickening. There are few patchy groundglass densities seen within the bilateral mid to lower lung zones. This favors a mild mu ltifocal viral pneumonia. IMPRESSION: 1. No evidence for pulmonary embolus with limitations as described above. 2. A few scattered patchy groundglass airspace opacities within the bilateral mid to lower lung zones . This favors a multifocal viral pneumonia. 3. Mild mediastinal lymphadenopathy which has slightly progressed. This could be reactive to the susp ected pneumonia. 4. Stable cardiomegaly and pulmonary arterial hypertension. ACT 112: Negative or not required by law. Electronically signed by: Cruz Sher M.D. 09/27/2020 8:03 AM
[2020-09-27] MEDS: ENOXAPARIN INJ 40 MG/0.4 ML SYR SQ SCH (08:05)
--- NOTE | 2020-09-27 08:27 | XRay Report ---
XR chest 1V portable CLINICAL HISTORY: SEPSIS COMPARISON STUDY: 02/06/2019 FINDINGS: The heart is enlarged. There is elevation of interstitium.[The findings could represent mil d pulmonary vascular congestion or a viral pneumonitis. Clinical and radiographic follow-up is recomm ended. There are no significant pleural effusions. IMPRESSION: 1. Elevation of interstitium. Diagnostic considerations include mild congestive failure versus a lula l pneumonitis. Clinical and radiographic follow-up is recommended. ACT 112: Negative or not required by law. Electronically signed by: Nahid Perkins M.D. 09/27/2020 8:26 AM
[2020-09-27] MEDS ORDERED: FLUTICASONE/VILANTEROL 200/25MCG 14 PUFFS/INHALER INH SCH (09:00)
[2020-09-27] MEDS ORDERED: buPROPion XL 150 MG TABCR PO SCH (09:00)
[2020-09-27] MEDS: ACETAMINOPHEN 325 MG TAB PO PRN ×3 (09:07→23:39)
[2020-09-27] MEDS: INSULIN ASPART 100 UNITS/ML 3 ML PEN SC SCH ×4 (09:09→21:16)
[2020-09-27] MEDS: INSULIN GLARGINE SOLOSTAR 100 UNITS/ML 3 ML PEN SC SCH ×2 (09:09→21:12)
[2020-09-27] MEDS: methylPREDNISolone 60 MG in SYRINGE 0 ML IV SCH ×2 (11:13→21:06)
--- NOTE | 2020-09-27 12:12 | XCELERA ---
[id number]
--- NOTE | 2020-09-27 12:51 | Hospitalist Progress Note ---
Date of Service September 27, 2020 Assessment & Plan (1) Asthma exacerbation: Rosaura Talavera is a 55 yo female with h/o asthma, possible sleep apnea with obesity hypoventilation syndrome/morbid obesity, T2DM and HTN who was admitted to [facility] on 09/27/2020 for asthma exacerbation. Asthma Exacerbation H/o asthma, several days of cough/wheezing after URI symptoms, necessitating supplemental O2 and duo nebs in ED - suspect asthma exacerbation. - continue scheduled/PRN duo nebs, continue Doxycycline 100mg IV BID - started Solu-Medrol 60mg IV BID, plan to taper as tolerate - changed Symbicort to Flovent 2 puffs BID, per recent [facility] records - continue supplemental O2 via NC Hypertension H/o HTN, BP up to 240/120 in ED, with hypertensive urgency (mildly elevated Troponins) - suspect 2/2 hypoxia and non-compliance. - continue Losartan 25mg PO QAM, per recent [facility] records - would consider adding Hydralazine 50mg PO TID, per recent [facility] records, if BP not controlled with Losartan Elevated Troponin Troponin .092 --> .09, in the setting of hypoxia and severe hypertension. Suspect demand ischemia. - EKG PRN for chest pain Pulmonary HTN/Diastolic Dysfunction TTE today showing interval worsening of RVSP (50-60mmHg), Grade II Diastolic Dysfunction, EF 45-50%. Suspect 2/2 uncontrolled asthma. - asthma tx as above - establish with Cardiology as outpatient, with serial TTE Obstructive Sleep Apnea/Obesity Hypoventilation Syndrome Based on previously recorded history of such, in addition to patient's report of previous abnormal sleep study, suspect both of these diagnoses. - O2 via NC as above - CPAP HS T2DM H/o such, A1c 7.5, patient reports no treatment of Diabetes for almost a year. Per [facility] records, patient's last regimen consisted of Sitagliptin 100mg PO daily. - SSI/basal insulin while hospitalized - will consider changing regimen to Metformin on discharge Depression/Anxiety - Wellbutrin transitioned to Duloxetine DR 30mg PO daily, per recent [facility] records Dispo: Med/Surg with tele, CM consult placed to assist with d/c planning given difficulties with medication compliance Diet: Carb Consistent, Heart Healthy, Low Salt DVT ppx: Lovenox Code: Full (2) Acute respiratory failure with hypoxemia: (3) DAISY (obstructive sleep apnea): (4) DMII (diabetes mellitus, type 2): (5) Hypomagnesemia: (6) Acute hypokalemia: (7) HTN (hypertension): (8) Pulmonary hypertension: (9) Elevated troponin: (10) Diastolic dysfunction: (11) Depression with anxiety: Admission and Anticipated Discharge Date Admission Date: September 27, 2020 Supervising Physician Co-Signing Physician Notes I also saw the patient today with the resident physician and confirmed villanueva portions of the history and physical examination. I agree with the impression and plan as noted. She is sleeping but awakens to voice. 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 Exam 124/99, 85, 18, 36.2, 98% on 2 L/min via nasal cannula. Alert. Oriented. Lungs with diffuse wheezing; she is tight in all mei. Heart is regular, slightly tachycardic Abdomen is nontender Data WBC 10.94, hemoglobin 14.4, platelet count 276. D-dimer was elevated at 880. Potassium 3.5. Renal function 9/0.66. Hemoglobin A1c 7.5%. Troponin 0 0.092, 0.090. COVID-19 was negative upon presentation, influenza a/B-, RSV negative. CT scan of the chest is negative for pulmonary embolus. Patchy groundglass airspace opacities within the bilateral mid to lower lung zones favoring a multifocal viral pneumonia. Blood and urine cultures are pending. Assessment and plan Pneumonia, POA Acute asthmatic exacerbation Initiate Solu-Medrol Continue nebulized bronchodilators Recommend recheck for Covid Demand ischemia Mild troponin elevation which could be consistent with demand ischemia given Initial presentation and elevated blood pressure Hypertension Marked elevation upon presentation consistent with illness. She does have a past medical history but was apparently off medications Losartan was added; monitor blood pressures Diabetes, with hyperglycemia A1c was not as bad as I would have expected if she was off medications. Will query her outpatient records to determine her previous medications Would expect hyperglycemia given acute illness and steroids. Additional per resident documentation Subjective No acute events overnight. The patient reports that she started to have cough/runny nose ~5-6 days ago, which was c/b increased shortness of breath and wheezing that was unresponsive to Albuterol nebs. Patient reports frequent "asthma attacks", mostly occurring at night. She has frequent bouts of wheezing/cough/nocturnal symptoms. Patient's PCP is Loreta Smith and she reports last seeing her in 05/2020. However the patient was homeless for almost a year and only recently started renting a townhouse earlier this month - she has not taken any prescribed medications for almost a year. Also reports having a sleep study done in the past for sleep apnea but has never been prescribed a CPAP. This morning she reports improvement in wheezing and SOB although symptoms are still bothersome, requiring supplemental O2. Denies fever/chills, chest pain, palpitations, orthopnea, LE edema, N/V, abdominal pain. Review of Systems Review of Systems: Pertinent positives and negatives mentioned in HPI. Physical Exam Constitutional: + morbidly obese; no acute distress Respiratory: + cough and + tachypneic; no respiratory distress Auscultation: + wheezes (throughout lung mei ) Cardiovascular: Rate/Rhythm: regular rhythm and + tachycardic Vessels: no JVD Extremities: no edema Gastrointestinal (Abdomen): normal bowel sounds, soft, nontender, no hepatosplenomegaly Skin: no rashes, warm and dry Psychiatric: Orientation: alert and oriented x 3 Affect: + depressed affect Results & Data Results & Data ([facility]) Vital Signs (Past 12 Hours) Vital Signs Temp Pulse Pulse Resp BP BP BP 09/27/20 11:16 88 26 H 156/86 H 09/27/20 11:11 106 H 20 09/27/20 11:06 36.4 C L 74 20 178/89 H 09/27/20 09:36 112 H 24 09/27/20 08:00 94 H 09/27/20 07:40 36.5 C 91 H 20 148/72 H 09/27/20 07:00 70 09/27/20 05:25 36.4 C L 76 20 104/65 09/27/20 05:08 20 09/27/20 04:53 20 09/27/20 04:51 96 H 09/27/20 04:12 92 H 20 09/27/20 04:00 20 09/27/20 02:59 36.4 C L 90 20 209/97 H 09/27/20 02:27 85 20 174/99 H 09/27/20 01:30 105 H 20 157/114 H Pulse Ox 09/27/20 11:16 95 09/27/20 11:11 95 09/27/20 11:06 93 09/27/20 09:36 94 09/27/20 08:00 09/27/20 07:40 93 09/27/20 07:00 09/27/20 05:25 94 09/27/20 05:08 93 09/27/20 04:53 93 09/27/20 04:51 09/27/20 04:12 94 09/27/20 04:00 94 09/27/20 02:59 93 09/27/20 02:27 96 09/27/20 01:30 94 Resident Activity Tracking Resident Involvement: Resident Care Provided Care Provided: Adult Hospital Medicine
--- NOTE | 2020-09-27 12:59 | Electrocardiogram Report ---
Test Reason : Blood Pressure : / mmHG Vent. Rate : 101 BPM Atrial Rate : 101 BPM P-R Int : 172 ms QRS Dur : 090 ms QT Int : 332 ms P-R-T Axes : 049 066 125 degrees QTc Int : 430 ms Sinus tachycardia Left atrial enlargement Left ventricular hypertrophy with repolarization abnormality Abnormal ECG When compared with ECG of 27-DEC-2018 09:41, Nonspecific T wave abnormality now evident in Anterior leads Confirmed by Ez Young ([id number]) on 09/27/2020 12:58:46 PM Referred By: REFERRED SELF Confirmed By:Jesu Young
--- NOTE | 2020-09-27 12:59 | Electrocardiogram Report ---
Test Reason : Blood Pressure : / mmHG Vent. Rate : 097 BPM Atrial Rate : 097 BPM P-R Int : 172 ms QRS Dur : 098 ms QT Int : 362 ms P-R-T Axes : 050 058 161 degrees QTc Int : 459 ms Normal sinus rhythm Biatrial enlargement Left ventricular hypertrophy Abnormal ECG When compared with ECG of 26-SEP-2020 21:40, (unconfirmed) No significant change was found Confirmed by Ez Young ([id number]) on 09/27/2020 12:59:01 PM Referred By: REFERRED SELF Confirmed By:Jesu Young
[2020-09-27] MEDS: hydrOXYzine HCl 10 MG TAB PO PRN ×2 (15:57→23:39)
[2020-09-27] MEDS ORDERED: LORazepam 0.5 MG TAB PO STA (17:55)
[2020-09-27] MEDS: FLUTICASONE FUROATE 200MCG 14 PUFFS/INHALER INH SCH (21:04)
[2020-09-27] MEDS: MELATONIN 3 MG TAB PO PRN (23:27)
--- NOTE | 2020-09-28 00:13 | Billing Data ---
Date of Service September 28, 2020 Coding Level of Care Code 47244 Initial Inpt Care Lvl 3
[2020-09-28] MEDS: DOXYCYCLINE HYCLATE 100 MG in DEXTROSE 5% 100 ML IV SCH ×2 (04:15→14:11)
[2020-09-28 06:28] LABS: Basophils # (auto) 0.01 K/uL (0-0.2); Basophils % (auto) 0.1 %; Hematocrit (blood only) 42.8 % (37-47); Hemoglobin 14.2 g/dL (12.0-16.0); Immature Granulocytes # (auto) 0.04 K/uL (0.00-0.02); Immature Granulocytes % (auto) 0.3 %; Lymphocytes # (auto) 1.34 K/uL (1.2-3.4); Lymphocytes % (auto) 9.9 %; Mean Corpuscular Hemoglobin 29.8 pg (25-34); Mean Corpuscular Hgb Conc 33.2 g/dL (32-36); Mean Corpuscular Volume 89.7 fL (80-100); Mean Platelet Volume 12.4 fL (7.4-10.4); Monocytes # (auto) 0.57 K/uL (0.11-0.59); Monocytes % (auto) 4.2 %; Neutrophils # (auto) 11.57 K/uL (1.4-6.5); Neutrophils % (auto) 85.5 %; Platelet Count 295 K/uL (130-400); RDW Standard Deviation 45.9 fL (36.4-46.3); Red Blood Count 4.77 M/uL (4.2-5.4); White Blood Count 13.53 K/uL (4.8-10.8)
[2020-09-28 07:00] LABS: BUN Creatinine Ratio 20.1 (10-20); Calcium 9.2 mg/dl (8.5-10.1); Creatinine Clr Calc Pharmacy 143.7 ml/min; Est GFR (African American) 116.7; Est GFR (Non-African American) 100.7; Potassium 3.6 mmol/L (3.5-5.1)
[2020-09-28] MEDS: ALBUT/IPRATROP 3MG/0.5MG NEB 3 ML VIAL NEB SCH ×2 (07:16→11:51)
[2020-09-28] MEDS: DULoxetine HCL 30 MG CAP PO SCH (08:00)
[2020-09-28] MEDS: LOSARTAN POTASSIUM 25 MG TAB PO SCH (08:00)
[2020-09-28] MEDS: methylPREDNISolone 60 MG in SYRINGE 0 ML IV SCH ×2 (08:01→20:42)
[2020-09-28] MEDS: ATORVASTATIN 20 MG TAB PO SCH (08:01)
[2020-09-28] MEDS: guaiFENesin 600 MG TABCR PO SCH ×2 (08:01→20:42)
[2020-09-28] MEDS: hydrOXYzine HCl 10 MG TAB PO PRN (08:02)
[2020-09-28] MEDS: INSULIN ASPART 100 UNITS/ML 3 ML PEN SC SCH ×4 (08:10→20:39)
[2020-09-28] MEDS: INSULIN GLARGINE SOLOSTAR 100 UNITS/ML 3 ML PEN SC SCH ×2 (08:10→20:41)
--- NOTE | 2020-09-28 09:34 | Hospitalist Progress Note ---
Date of Service September 28, 2020 Assessment & Plan (1) Asthma exacerbation: Rosaura Talavera is a 55 yo female with h/o asthma, possible sleep apnea with obesity hypoventilation syndrome/morbid obesity, T2DM and HTN who was admitted to [facility] on 09/27/2020 for asthma exacerbation. Shortness of breath -presented with several days of cough/wheezing after URI symptoms - suspect asthma exacerbation vs viral pneumonia -unclear med adherence prior to admission -imaging consistent with covid; initial covid test negative, patient was unable to tolerate repeat covid test on 09/28/2020 -switched scheduled and prn albuterol nebs to levalbuterol - scheduled nebs qid and q2h prn -continue doxycycline 100mg IV bid -continue solumedrol 60mg IV bid -continue flovent 2 puffs bid -continue guaifenesin 600mg PO q12h -continue supplemental O2 via NC -repeat CXR in AM Hypertension -history of HTN, unclear med adherence prior to admission -BP up to 240/120 in ED - suspect 2/2 hypoxia, anxiety, med nonadherence -losartan increased on 09/28 from 25mg to 50mg PO qAM -consider adding hydralazine 50mg PO tid (per recent [facility]) if BP not controlled with losartan Pulmonary HTN/diastolic dysfunction -TTE on 09/27 showing interval worsening of RVSP (50-60mmHg), Grade II Diastolic Dysfunction, EF 45-50%; suspect 2/2 uncontrolled asthma -treating pulmonary pathology as above -establish with cardiology as outpatient Anxiety/depression, psychiatric history -per CM note, history of psych hospitalization within the past 1-2 years -per CM note, patient believes she has been working for [employer] without pay; concern for ? reality-based thought process -unclear contribution to current clinical picture, reported history of homelessness, questionable med adherence; psychiatry consult placed -discontinued wellbutrin -continue duloxetine DR 30mg PO daily -continue hydroxyzine 10mg PO tid prn -caution when considering any increase in solumedrol dose due to current heightened anxiety Obstructive sleep apnea/obesity hypoventilation syndrome -O2 via NC as above -CPAP qhs T2DM -A1c 7.5 -no treatment of DM for almost a year (per patient) -patient's last regimen consisted of sitagliptin 100mg PO daily (per [facility] records) -SSI/basal insulin during current stay -consider changing regimen to metformin on discharge Elevated Troponin -troponin 0.092 --> 0.090, in the setting of hypoxia and severe hypertension - suspect demand ischemia -EKG prn for chest pain HLD -continue atorvastatin 20mg PO qd Dispo: med/surg with tele, CM consult placed to assist with d/c planning given difficulties with medication compliance Diet: carb consistent, heart healthy, low sodium DVT ppx: lovenox Code status: full code (2) Acute respiratory failure with hypoxemia: (3) DAISY (obstructive sleep apnea): (4) DMII (diabetes mellitus, type 2): (5) Hypomagnesemia: (6) Acute hypokalemia: (7) HTN (hypertension): (8) Pulmonary hypertension: (9) Elevated troponin: (10) Diastolic dysfunction: (11) Depression with anxiety: Admission and Anticipated Discharge Date Admission Date: September 27, 2020 Supervising Physician Co-Signing Physician Notes I saw the patient concurrent the resident physician and confirmed villanueva portions of the history and physical examination. Agree with the impression and plan as noted the resident documentation and as summarized below. She is initially in the bathroom washing up in the sink; she is seemingly completing this task today with less dyspnea than she had yesterday. She speaks in complete sentences -again subjective improvement compared to yesterday. She does note increased and generalized anxiety; we discussed some of this may be secondary to the IV steroids. Exam 181/91, 82, 18, 36.5 C, 98% on 2 L/min. Alert. Oriented. Somewhat anxious but does respond to reassurance. Lungs with diffuse wheezing; she is tight in all mei, although slightly better air movement compared to yesterday Heart is regular, slightly tachycardic Abdomen is nontender Data White blood cell count 13.53, hemoglobin 14.2, platelet count 295. Potassium 3. 6. BUN 13, creatinine 0.65 Assessment and Plan Pneumonia, POA Acute asthmatic exacerbation Continue Solu-Medrol, arguably could increase but worry about increased anxiety; since she is improving we will discontinue the same Continue nebulized bronchodilators, although switch albuterol to levo albuterol She refused repeat Covid swab, although suspicion is lower today Demand ischemia Mild troponin elevation which could be consistent with demand ischemia given Initial presentation and elevated blood pressure Hypertension Marked elevation upon presentation consistent with illness, and anxiety Increase losartan Diabetes, with hyperglycemia A1c was not as bad as I would have expected if she was off medications. Will query her outpatient records to determine her previous medications Would expect hyperglycemia given acute illness and steroids. Anxiety Sarahalta was restarted Agree with psychiatric consultation Subjective Patient seen at bedside this morning. She was tearful when I entered the room; after asking how she was feeling this morning, she burst into tears, saying "I've got to get out of here" multiple times. Patient did not make any effort to get out of bed. She settled down after reassuring that she is safe here. Oriented to person and place but not to time. Endorses SOB that is not worse from yesterday. Denies headache, CP, palpitations, nausea, vomiting, constipat ion, diarrhea, or pain. Denies feeling confused. Patient then asked for some privacy for her to "get myself together". I assured patient I would be back to check in on her soon. Review of Systems Review of Systems: see HPI Physical Exam Constitutional: not combative Respiratory: + respiratory distress; no nasal flaring Auscultation: + diminished lung sounds expiratory wheezes heard in all lung mei anteriorly and posteriorly; no crackles, rales, or rhonchi appreciated Cardiovascular: Rate/Rhythm: regular rate and regular rhythm Heart Sounds: normal S1 and normal S2; no murmur Psychiatric: Orientation: alert, oriented to person, oriented to place and + guarded; + not oriented to time Eye Contact: + fair eye contact Speech: normal rate/rhythm/volume of speech Affect: + anxious affect and + tearful affect Mood: + anxious mood Results & Data Results & Data ([facility]) Vital Signs (Past 12 Hours) Vital Signs Temp Pulse Pulse Resp BP Pulse Ox 09/28/20 07:30 36.5 C 70 20 168/83 H 96 09/28/20 07:16 86 16 97 09/28/20 07:14 84 09/28/20 02:48 36.4 C L 79 18 166/95 H 96 09/28/20 02:46 98 H 09/27/20 23:20 36.7 C 92 H 18 175/73 H 93 Resident Activity Tracking Resident Involvement: Resident Care Provided Care Provided: Adult Hospital Medicine
[2020-09-28] MEDS: ACETAMINOPHEN 325 MG TAB PO PRN (12:12)
[2020-09-28] MEDS: ENOXAPARIN INJ 40 MG/0.4 ML SYR SQ SCH (12:16)
[2020-09-28] MEDS ORDERED: LEVALBUTEROL HCL 0.63 MG/3 ML NEB NEB PRN (12:49)
[2020-09-28] MEDS: LEVALBUTEROL HCL 0.63 MG/3 ML NEB NEB SCH ×2 (13:00→19:28)
[2020-09-28] MEDS ORDERED: LEVALBUTEROL HCL 0.63 MG/3 ML NEB NEB SCH (13:00)
[2020-09-28] MEDS ORDERED: XOPENEX/ATROVENT 0.63mg/0.5MG NEB COMBO NEB SCH (13:00)
[2020-09-28] MEDS: IPRATROPIUM BROMIDE NEB SOLN 0.02% 2.5 ML VIAL INH SCH ×2 (13:00→19:28)
[2020-09-28] MEDS ORDERED: LOSARTAN POTASSIUM 25 MG TAB PO ONE (15:01)
[2020-09-28] MEDS: FLUTICASONE FUROATE 200MCG 14 PUFFS/INHALER INH SCH (20:43)
[2020-09-28] MEDS: MELATONIN 3 MG TAB PO PRN (21:51)
[2020-09-29] MEDS: LEVALBUTEROL HCL 0.63 MG/3 ML NEB NEB SCH ×4 (00:22→19:10)
[2020-09-29] MEDS: IPRATROPIUM BROMIDE NEB SOLN 0.02% 2.5 ML VIAL INH SCH ×4 (00:22→19:12)
[2020-09-29] MEDS: DOXYCYCLINE HYCLATE 100 MG in DEXTROSE 5% 100 ML IV SCH ×2 (03:47→14:43)
[2020-09-29] MEDS: ACETAMINOPHEN 325 MG TAB PO PRN ×2 (03:52→04:30)
[2020-09-29 06:35] LABS: Basophils # (auto) 0.01 K/uL (0-0.2); Basophils % (auto) 0.1 %; Hemoglobin 14.3 g/dL (12.0-16.0); Immature Granulocytes # (auto) 0.04 K/uL (0.00-0.02); Immature Granulocytes % (auto) 0.3 %; Lymphocytes # (auto) 1.65 K/uL (1.2-3.4); Lymphocytes % (auto) 10.9 %; Mean Corpuscular Hemoglobin 29.9 pg (25-34); Mean Corpuscular Hgb Conc 33.3 g/dL (32-36); Mean Platelet Volume 12.3 fL (7.4-10.4); Monocytes # (auto) 0.62 K/uL (0.11-0.59); Monocytes % (auto) 4.1 %; Neutrophils # (auto) 12.84 K/uL (1.4-6.5); Neutrophils % (auto) 84.6 %; Platelet Count 322 K/uL (130-400); RDW Standard Deviation 46.5 fL (36.4-46.3); Red Blood Count 4.78 M/uL (4.2-5.4); White Blood Count 15.16 K/uL (4.8-10.8)
[2020-09-29 07:10] LABS: BUN Creatinine Ratio 27.4 (10-20); Calcium 9.1 mg/dl (8.5-10.1); Creatinine Clr Calc Pharmacy 131.3 ml/min; Est GFR (African American) 111.9; Est GFR (Non-African American) 96.6; Potassium 3.7 mmol/L (3.5-5.1)
[2020-09-29] MEDS: DULoxetine HCL 30 MG CAP PO SCH (08:44)
[2020-09-29] MEDS: guaiFENesin 600 MG TABCR PO SCH ×2 (08:44→21:18)
[2020-09-29] MEDS: ENOXAPARIN INJ 40 MG/0.4 ML SYR SQ SCH (08:44)
[2020-09-29] MEDS: ATORVASTATIN 20 MG TAB PO SCH (08:44)
[2020-09-29] MEDS: methylPREDNISolone 60 MG in SYRINGE 0 ML IV SCH ×2 (08:44→21:19)
[2020-09-29] MEDS: LOSARTAN POTASSIUM 50 MG TAB PO SCH (08:45)
[2020-09-29] MEDS: INSULIN GLARGINE SOLOSTAR 100 UNITS/ML 3 ML PEN SC SCH ×2 (08:45→21:18)
[2020-09-29] MEDS: INSULIN ASPART 100 UNITS/ML 3 ML PEN SC SCH ×4 (08:47→21:18)
--- NOTE | 2020-09-29 09:57 | Hospitalist Progress Note ---
Date of Service September 29, 2020 Assessment & Plan (1) Asthma exacerbation: Rosaura Talavera is a 55 yo female with h/o asthma, possible sleep apnea with obesity hypoventilation syndrome/morbid obesity, T2DM and HTN who was admitted to [facility] on 09/27/2020 for asthma exacerbation. Shortness of breath - presented with several days of cough/wheezing after URI symptoms - suspect asthma exacerbation due to viral PNA - CXR with bibasilar opacities suspicious for viral PNA/possible COVID; initial testing negative and patient was unable to tolerate repeat COVID test - continue Levalbuterol nebs - continue doxycycline 100mg IV bid, transition to PO tomorrow - continue solumedrol 60mg IV bid, plan to decrease to 40 IV BID tomorrow - continue Flovent 2 puffs bid - supplemental O2 via NC, wean as tolerated Hypertension - history of HTN, unclear med adherence prior to admission - BP up to 240/120 in ED - suspect 2/2 hypoxia, anxiety, med nonadherence - continue Losartan 50mg PO daily, extra 25mg PO given this afternoon - started Hydralazine 50mg PO TID PRN for SBP>180 Pulmonary HTN/diastolic dysfunction - TTE on 09/27 showing interval worsening of RVSP (50-60mmHg), Grade II Diastolic Dysfunction, EF 45-50%; suspect 2/2 uncontrolled asthma - treating pulmonary pathology as above - establish with cardiology as outpatient Anxiety/depression, psychiatric history - per CM note, history of psych hospitalization within the past 1-2 years - per CM note, patient believes she has been working for [employer] without pay; concern for ? reality-based thought process - continue duloxetine DR 30mg PO daily - continue hydroxyzine 10mg PO tid prn Obstructive sleep apnea/obesity hypoventilation syndrome -O2 via NC as above -CPAP QHS T2DM - A1c 7.5 - no treatment of DM for almost a year (per patient) - patient's last regimen consisted of sitagliptin 100mg PO daily (per [facility]) - SSI/basal insulin during current stay - consider starting metformin on discharge Elevated Troponin - troponin 0.092 --> 0.090, in the setting of hypoxia and severe hypertension - suspect demand ischemia - EKG prn for chest pain HLD - continue atorvastatin 20mg PO qd Dispo: med/surg with tele Diet: carb consistent, heart healthy, low sodium DVT ppx: lovenox Code status: full code (2) Acute respiratory failure with hypoxemia: (3) DAISY (obstructive sleep apnea): (4) DMII (diabetes mellitus, type 2): (5) Hypomagnesemia: (6) Acute hypokalemia: (7) HTN (hypertension): (8) Pulmonary hypertension: (9) Elevated troponin: (10) Diastolic dysfunction: (11) Depression with anxiety: Admission and Anticipated Discharge Date Admission Date: September 27, 2020 Supervising Physician Co-Signing Physician Notes I saw the patient concurrent the resident physician and confirmed villanueva portions of the history and physical examination. Agree with the impression and plan as noted the resident documentation and as summarized below. She looks better subjectively today. She is seated in bed, smiling, ready to eat her lunch. Appetite is still down but seems to be improving. She is able to speak in full sentences; she does not have the conversational dyspnea that she has had on previous exams. Exam 177/99, 87, 17, 36.6 C, 96% on room air Alert. Oriented. She seems more relaxed today. Lungs with diffuse wheezing; still tight but improving compared to previous exams Heart is regular, slightly tachycardic Abdomen is nontender Data White blood cell count 15.16. BUN 20, creatinine 0.71. Chest x-ray from this morning shows bibasilar opacities, cardiomegaly with slight decrease in interstitial thickening. Assessment and Plan Pneumonia, POA Acute asthmatic exacerbation Continue Solu-Medrol; not ready to de-escalate yet, perhaps tomorrow. Continue nebulized bronchodilators, levoalbuterol seems to be causing less anxiety than albuterol. Doxycycline, could like to be switched to oral tomorrow now that she is tolerating p.o. better. Demand ischemia Mild troponin elevation which could be consistent with demand ischemia given Initial presentation and elevated blood pressure Hypertension Marked elevation upon presentation consistent with illness, and anxiety Losartan was increased this morning. Diabetes, with hyperglycemia A1c was not as bad as I would have expected if she was off medications. Will query her outpatient records to determine her previous medications Would expect hyperglycemia given acute illness and steroids. Sliding scale coverage Anxiety Cymbalta was restarted Subjective No acute events overnight. This morning the patient reports mildly improved SOB/cough and markedly improved wheezing. Denies fever/chills, chest pain, palpitations, N/V, abdominal pain. Review of Systems Review of Systems: Pertinent positives and negatives mentioned in HPI. Physical Exam Constitutional: + morbidly obese; no acute distress Respiratory: + cough and + tachypneic; no respiratory distress Auscultation: + wheezes (bilateral expiratory) Cardiovascular: Rate/Rhythm: regular rhythm and + tachycardic Vessels: no JVD Extremities: no edema Gastrointestinal (Abdomen): normal bowel sounds, soft, nontender, no hepatosplenomegaly Skin: no rashes, warm and dry Psychiatric: Orientation: alert and oriented x 3 Affect: + depressed affect Results & Data Results & Data ([facility]) Vital Signs (Past 12 Hours) Vital Signs Temp Pulse Pulse Resp BP Pulse Ox 09/29/20 07:50 36.4 C L 75 20 166/89 H 97 09/29/20 07:43 75 09/29/20 07:03 79 17 97 09/29/20 03:43 36.5 C 74 18 177/93 H 97 09/29/20 00:42 172/90 H 09/29/20 00:22 79 18 97 09/29/20 00:21 36.4 C L 88 18 93 09/28/20 23:59 86 Resident Activity Tracking Resident Involvement: Resident Care Provided Care Provided: Adult Hospital Medicine
--- NOTE | 2020-09-29 09:58 | XRay Report ---
XR chest 2V PA/lateral CLINICAL HISTORY: Shortness of breath. COMPARISON STUDY: Chest CT September 27, 2020 chest radiograph September 26, 2020. FINDINGS: Cardiomegaly is noted. Interstitial thickening has slightly decreased. Bibasilar opacities are noted. No pneumothorax is noted. No definite pleural effusion is identified. IMPRESSION: 1. Mild bibasilar opacities which favor an infectious process. 2. Cardiomegaly. Slight decrease in interstitial thickening. ACT 112: Negative or not required by law. Electronically signed by: Kiran Church M.D. 09/29/2020 9:56 AM
[2020-09-29] MEDS ORDERED: LOSARTAN POTASSIUM 25 MG TAB PO STA (13:58)
[2020-09-29] MEDS ORDERED: hydrALAZINE 10 MG TAB PO PRN (13:59)
[2020-09-29] MEDS ORDERED: hydrALAZINE TAB 50 MG TAB PO PRN (14:05)
[2020-09-29] MEDS: FLUTICASONE FUROATE 200MCG 14 PUFFS/INHALER INH SCH (21:18)
[2020-09-29] MEDS: MELATONIN 3 MG TAB PO PRN (21:28)
[2020-09-30] MEDS: LEVALBUTEROL HCL 0.63 MG/3 ML NEB NEB SCH ×4 (00:13→19:10)
[2020-09-30] MEDS: IPRATROPIUM BROMIDE NEB SOLN 0.02% 2.5 ML VIAL INH SCH ×4 (00:13→19:08)
[2020-09-30] MEDS: DOXYCYCLINE HYCLATE 100 MG in DEXTROSE 5% 100 ML IV SCH (04:08)
[2020-09-30 06:19] LABS: Basophils # (auto) 0.01 K/uL (0-0.2); Basophils % (auto) 0.1 %; Hematocrit (blood only) 44.6 % (37-47); Hemoglobin 14.8 g/dL (12.0-16.0); Immature Granulocytes # (auto) 0.06 K/uL (0.00-0.02); Immature Granulocytes % (auto) 0.4 %; Lymphocytes # (auto) 2.02 K/uL (1.2-3.4); Lymphocytes % (auto) 14.9 %; Mean Corpuscular Hemoglobin 29.5 pg (25-34); Mean Corpuscular Hgb Conc 33.2 g/dL (32-36); Mean Platelet Volume 11.6 fL (7.4-10.4); Monocytes # (auto) 0.63 K/uL (0.11-0.59); Monocytes % (auto) 4.6 %; Neutrophils # (auto) 10.84 K/uL (1.4-6.5); Platelet Count 304 K/uL (130-400); RDW Coefficient of Variation 13.8 % (11.5-14.5); RDW Standard Deviation 44.8 fL (36.4-46.3); Red Blood Count 5.01 M/uL (4.2-5.4); White Blood Count 13.56 K/uL (4.8-10.8)
[2020-09-30 06:48] LABS: BUN Creatinine Ratio 29.6 (10-20); Calcium 9.3 mg/dl (8.5-10.1); Est GFR (African American) 115.5; Est GFR (Non-African American) 99.7; Potassium 3.9 mmol/L (3.5-5.1)
[2020-09-30] MEDS: ACETAMINOPHEN 325 MG TAB PO PRN (08:25)
[2020-09-30] MEDS: LOSARTAN POTASSIUM 50 MG TAB PO SCH (08:26)
[2020-09-30] MEDS: guaiFENesin 600 MG TABCR PO SCH ×2 (08:27→21:04)
[2020-09-30] MEDS: DULoxetine HCL 30 MG CAP PO SCH (08:27)
[2020-09-30] MEDS: ATORVASTATIN 20 MG TAB PO SCH (08:27)
[2020-09-30] MEDS: ENOXAPARIN INJ 40 MG/0.4 ML SYR SQ SCH (08:29)
[2020-09-30] MEDS: INSULIN ASPART 100 UNITS/ML 3 ML PEN SC SCH ×4 (08:30→21:05)
[2020-09-30] MEDS: INSULIN GLARGINE SOLOSTAR 100 UNITS/ML 3 ML PEN SC SCH ×2 (08:30→21:06)
[2020-09-30] MEDS: methylPREDNISolone 40 MG in SYRINGE 0 ML IV SCH ×2 (08:36→21:08)
--- NOTE | 2020-09-30 09:15 | Hospitalist Progress Note ---
Date of Service September 30, 2020 Assessment & Plan (1) Asthma exacerbation: Rosaura Talavera is a 55 yo female with h/o asthma, possible sleep apnea with obesity hypoventilation syndrome/morbid obesity, T2DM and HTN who was admitted to [facility] on 09/27/2020 for asthma exacerbation. Shortness of breath - presented with several days of cough/wheezing after URI symptoms - suspect asthma exacerbation due to viral PNA - CXR with bibasilar opacities suspicious for viral PNA/possible COVID; initial testing negative and patient was unable to tolerate repeat COVID test - continue Levalbuterol nebs - continue doxycycline 100mg PO BID (today is day 5) - plan to stop at discharge - tapered Solu-Medrol to 40 mg IV bid, plan to transition to PO taper tomorrow - continue Flovent 2 puffs bid - supplemental O2 via NC, wean as tolerated Hypertension - history of HTN, unclear med adherence prior to admission - BP up to 240/120 in ED - suspect 2/2 hypoxia, anxiety, med nonadherence - continue Losartan 50mg PO daily - continue Hydralazine 50mg PO TID PRN for SBP>180, consider adding this as scheduled on discharge (was a home medication per recent [facility] records) Pulmonary HTN/diastolic dysfunction - TTE on 09/27 showing interval worsening of RVSP (50-60mmHg), Grade II Diastolic Dysfunction, EF 45-50%; suspect 2/2 uncontrolled asthma/OHS - treating pulmonary pathology as above - establish with cardiology as outpatient for further eval/management Elevated Troponin - troponin 0.092 --> 0.090, in the setting of hypoxia and severe hypertension - suspect demand ischemia in setting of possible CAD - EKG prn for chest pain - establish with Cardiology as outpatient as mentioned above Anxiety/depression, psychiatric history - per CM note, history of psych hospitalization within the past 1-2 years - continue duloxetine DR 30mg PO daily - continue hydroxyzine 10mg PO tid prn - f/u with PCP Obstructive sleep apnea/obesity hypoventilation syndrome - O2 via NC as above - CPAP QHS T2DM - A1c 7.5 - no treatment of DM for almost a year (per patient) - patient's last regimen consisted of sitagliptin 100mg PO daily (per [facility] records) - SSI/basal insulin during current stay - consider starting metformin on discharge HLD - continue atorvastatin 20mg PO qd Dispo: med/surg with tele, tentative d/c for tomorrow pending medically stable Diet: carb consistent, heart healthy, low sodium DVT ppx: lovenox Code status: full code (2) Acute respiratory failure with hypoxemia: (3) DAISY (obstructive sleep apnea): (4) DMII (diabetes mellitus, type 2): (5) Hypomagnesemia: (6) Acute hypokalemia: (7) HTN (hypertension): (8) Pulmonary hypertension: (9) Elevated troponin: (10) Diastolic dysfunction: (11) Depression with anxiety: Admission and Anticipated Discharge Date Admission Date: September 27, 2020 Supervising Physician Co-Signing Physician Notes I personally examined the patient and verified all villanueva points of history and exam, discussed case, and agree with decision making with Dr Bullock. feeling better breathing feeling better. followed with dr herrera for about a year but hasn't seen in a while vitals noted nad heent nc at [facility] lungs cta except for very faint wheeze L upper lung field no accessory muscles no conversational dyspnea good effort asthma exacerbation - related to pneumonia - improved. wean steroids, hopefully home tomorrow. re-institute outpt management (she notes coverage should no longer be a problem) elevated troponin - demand ischemia - but will want outpt cardio eval to help determine ?presence of CAD vs all just R sided strain from asthma/DAISY. asa for now DAISY - needs outpt sleep study DVT proph - lovenox otherwise as above Subjective No acute events overnight - weaned off NC yesterday evening. This morning the patient reports no SOB and markedly improved wheezing. Denies fever/chills, chest pain, palpitations, N/V, abdominal pain. Review of Systems Review of Systems: Pertinent positives and negatives mentioned in HPI. Physical Exam Constitutional: + morbidly obese; no acute distress Respiratory: normal respiratory effort; no respiratory distress Auscultation: + wheezes (faint bilateral end-expiratory wheezes, improved) Cardiovascular: Rate/Rhythm: regular rhythm and + tachycardic Vessels: no JVD Extremities: no edema Gastrointestinal (Abdomen): normal bowel sounds, soft, nontender, no hepatosplenomegaly Skin: no rashes, warm and dry Psychiatric: Orientation: alert and oriented x 3 Affect: + depressed affect Results & Data Results & Data ([facility]) Vital Signs (Past 12 Hours) Vital Signs Temp Pulse Pulse Resp BP BP Pulse Ox 09/30/20 07:45 83 09/30/20 07:30 82 18 94 09/30/20 06:54 36.5 C 87 18 156/73 H 95 09/30/20 04:00 36.6 C 87 18 169/91 H 92 09/30/20 01:00 157/98 H 09/30/20 00:14 91 H 18 96 09/30/20 00:00 36.3 C L 87 18 194/98 H 09/29/20 23:19 80 Resident Activity Tracking Resident Involvement: Resident Care Provided Care Provided: Adult Hospital Medicine
[2020-09-30] MEDS: ASPIRIN 81 MG CHEW PO SCH (12:15)
--- NOTE | 2020-09-30 15:47 | Billing Data ---
Date of Service September 30, 2020 Coding Level of Care Code 28563 Subseq Hosp Care Lvl 3
[2020-09-30] MEDS: DOXYCYCLINE HYCLATE 100 MG CAP PO SCH (21:04)
[2020-09-30] MEDS: FLUTICASONE FUROATE 200MCG 14 PUFFS/INHALER INH SCH (21:08)
[2020-09-30] MEDS ORDERED: hydrALAZINE TAB 50 MG TAB PO PRN (23:29)
[2020-09-30] MEDS: MELATONIN 3 MG TAB PO PRN (23:34)
[2020-10-01] MEDS: LEVALBUTEROL HCL 0.63 MG/3 ML NEB NEB SCH ×2 (00:37→07:09)
[2020-10-01] MEDS: IPRATROPIUM BROMIDE NEB SOLN 0.02% 2.5 ML VIAL INH SCH ×2 (00:37→07:09)
[2020-10-01] MEDS: LOSARTAN POTASSIUM 50 MG TAB PO SCH (07:31)
[2020-10-01 07:42] LABS: Basophils # (auto) 0.02 K/uL (0-0.2); Basophils % (auto) 0.1 %; Hematocrit (blood only) 45.8 % (37-47); Hemoglobin 15.2 g/dL (12.0-16.0); Immature Granulocytes # (auto) 0.05 K/uL (0.00-0.02); Immature Granulocytes % (auto) 0.4 %; Lymphocytes # (auto) 2.72 K/uL (1.2-3.4); Lymphocytes % (auto) 19.6 %; Mean Corpuscular Hemoglobin 29.5 pg (25-34); Mean Corpuscular Hgb Conc 33.2 g/dL (32-36); Mean Corpuscular Volume 88.8 fL (80-100); Mean Platelet Volume 12.1 fL (7.4-10.4); Monocytes # (auto) 0.99 K/uL (0.11-0.59); Monocytes % (auto) 7.1 %; Neutrophils # (auto) 10.07 K/uL (1.4-6.5); Neutrophils % (auto) 72.8 %; Platelet Count 336 K/uL (130-400); RDW Coefficient of Variation 13.5 % (11.5-14.5); RDW Standard Deviation 43.9 fL (36.4-46.3); Red Blood Count 5.16 M/uL (4.2-5.4); White Blood Count 13.85 K/uL (4.8-10.8)
[2020-10-01] MEDS ORDERED: amLODIPine BESYLATE 5 MG TAB PO ONE (08:00)
[2020-10-01] MEDS: DOXYCYCLINE HYCLATE 100 MG CAP PO SCH (08:07)
[2020-10-01] MEDS: ASPIRIN 81 MG CHEW PO SCH (08:07)
[2020-10-01] MEDS: guaiFENesin 600 MG TABCR PO SCH (08:07)
[2020-10-01] MEDS: ATORVASTATIN 20 MG TAB PO SCH (08:08)
[2020-10-01] MEDS: ENOXAPARIN INJ 40 MG/0.4 ML SYR SQ SCH (08:08)
[2020-10-01] MEDS: DULoxetine HCL 30 MG CAP PO SCH (08:08)
[2020-10-01 08:14] LABS: BUN Creatinine Ratio 28.4 (10-20); Creatinine Clr Calc Pharmacy 138.5 ml/min; Est GFR (African American) 115.5; Est GFR (Non-African American) 99.7; Potassium 3.8 mmol/L (3.5-5.1)
[2020-10-01] MEDS: INSULIN GLARGINE SOLOSTAR 100 UNITS/ML 3 ML PEN SC SCH (08:28)
[2020-10-01] MEDS: INSULIN ASPART 100 UNITS/ML 3 ML PEN SC SCH ×2 (08:28→12:40)
[2020-10-01] MEDS: ACETAMINOPHEN 325 MG TAB PO PRN (08:33)
[2020-10-01] MEDS ORDERED: predniSONE 20 MG TAB PO SCH (09:00)
--- NOTE | 2020-10-01 10:07 | Discharge Summary ---
Date of Service October 01, 2020 Admission HPI Per Admitting Provider Ms. Talavera is a 55 yo woman with a PMHx of morbid obesity, DAISY + obesity hypoventilation syndrome, asthma, type II diabetes mellitus and HTN who presented to the emergency department for progressive SOB over the past 3 days. She endorses associated wheezing, nasal congestion and cough. She denies any fever/chills or chest pain. She has a nebulizer machine at home and tried two cartridges of albuterol, but they did not markedly improve her breathing. When asked what her home asthma medication regimen, she states that she has two types of inhalers, one of which is albuterol - but she cannot recall the name of the second. She says she uses them both when she feels SOB - ie she does not use either on a routine basis. She has been hospitalized once previously at [facility] in 2019 for an asthma exacerbation - which included an ICU stay, although she was never intubated. Mrs. Talavera has been diagnosed with obstructive sleep apnea - but she has never used a CPAP machine (other than when she was hospitalized in 2019). She also has a history of depression and anxiety - previously she was connected with a psychiatrist at [place] [facility]. She has been trialed on Wellbutrin, Cymbalta, Fluoxetine and hydroxyzine in the past. Patient does not seem to have keen knowledge of the names of her medications and which were effective. She has a medical marijuana card for anxiety - the substance is delivered via a vaping apparatus. She says her anxiety was high right now. When discussing her other chronic health conditions, Mrs. Talavera erupts into tears - she reports she lost her house in 05/2019 and was homeless for a year. During this time she was unable to fill most of her prescription medications (including inhalers, anti-hypertensives, Januvia, and anxiety medications). She is now living with her grandson in a townhouse in [place]. social Hx: former tobacco smoker, quit 2006. Smoked a couple of cigarettes per day for 10-15 years. On arrival to the ED, she was febrile, HR was 123, BP was 240/122, RR 40, O2 sat 85 on room air. Her WBC was mildly elevated to 13, Hgb normal. K low at 3.2. Mag low at 1.6. Cr normal. Trop elevated to 0.092. Respiratory Biofire negative for RSV, COVID 19 and Influenza. UA ordered. ABG showing PH of 7.41, bicarb of 25, PO2 64. D-dimer elevated to 880. EKG showing NSR. Chest CTA showing no evidence of pulmonary embolism, no pneumothorax or pleural effusion; bibasilar opacities and cardiomegaly (official read pending). She was given 1 liter of NSS, Tylenol 1g, Decadron 10mg, Zosyn, 1 nebulizer treatment, 30meq Kcl and magnesium. She was also given an albuterol nebulizer treatment adn placed on supplemental oxygen. Admission Exam Per Admitting Provider Constitutional: + morbidly obese and cooperative Eyes: + anicteric sclerae ENMT: external ear and nose normal, oropharynx normal Neck: normal visual inspection and trachea midline Respiratory: + labored breathing and + cough Auscultation: + wheezes (diffuse throughout b/l lung mei); no crackles, no rales and no pleural rub Cardiovascular: Rate/Rhythm: regular rhythm and + tachycardic Heart Sounds: normal S1 and normal S2; no murmur Extremities: + pedal edema (1 + bilaterally) Gastrointestinal (Abdomen): normal bowel sounds, soft, nontender, no hepatosplenomegaly Skin: no rashes, warm and dry Neurologic: moves all extremities Psychiatric: Affect: + anxious affect and + tearful affect Principal Diagnosis Asthma Exacerbation Discharge Exam Constitutional + morbidly obese; no acute distress Respiratory normal respiratory effort; no respiratory distress Auscultation: + wheezes (faint bilateral end-expiratory wheezes, improved) Cardiovascular Rate/Rhythm: regular rhythm and + tachycardic Vessels: no JVD Extremities: no edema Gastrointestinal (Abdomen) normal bowel sounds, soft, nontender, no hepatosplenomegaly Skin no rashes, warm and dry Psychiatric Orientation: alert and oriented x 3 Affect: + depressed affect Discharge Data Allergies Allergy/AdvReac Type Severity Reaction Status Date / Time bee venom protein (honey bee) Allergy Severe Anaphylaxis Verified 09/26/20 22:37 ibuprofen Allergy Mild swelling Verified 09/26/20 22:37 mushroom Allergy Mild swelling Verified 09/26/20 22:37 Consultations 09/27/20 01:03 ED Decision to Admit Stat 09/27/20 08:43 Consult Case Management - Discharge Planning Routine Ordered Studies 09/26/20 23:08 CT angio chest PE protocol Urgent Hospital Course (1) Asthma exacerbation: Rosaura Talavera is a 55 yo female with h/o asthma, possible sleep apnea with obesity hypoventilation syndrome/morbid obesity, T2DM and HTN who was admitted to [facility] on 09/27/2020 for asthma exacerbation. Asthma Exacerbation - presented with several days of cough/wheezing after URI symptoms - suspect asthma exacerbation due to viral PNA - received Levalbuterol nebs, Doxycycline 100mg PO BID x5 days, Solu-Medrol - weaned of supplemental O2 as of 09/30 and wheezes almost completely resolved - Solu-Medrol transitioned to Prednisone 60mg PO on 10/01/2020 - continue for 5- day taper after discharge (60x1 day, 40x2 days, 20x2 days) - daily home inhaler changed to generic Budesonide nebs BID - continue Albuterol nebs PRN Hypertension - history of HTN, unclear med adherence prior to admission - BP up to 240/120 in ED - suspect 2/2 hypoxia, anxiety, med nonadherence - Losartan (previous home med) increased to 50mg PO daily but still hypertensive to >180/100 - received severe Hydralazine 50mg PO PRNs to control BP - discharged on Losartan 50mg PO daily and Amlodipine 5mg PO daily - recommend close f/u with PCP: titrate as needed Pulmonary HTN/diastolic dysfunction - TTE on 09/27 showing interval worsening of RVSP (50-60mmHg), Grade II Diastolic Dysfunction, EF 45-50%; suspect 2/2 uncontrolled asthma/OHS - treated pulmonary pathology as above - recommend re-establishing with [facility] as outpatient for further eval/management (previously saw Dr. Lujan) Elevated Troponin - troponin 0.092 --> 0.090, in the setting of hypoxia and severe hypertension - suspect demand ischemia in setting of possible CAD - establish with Cardiology as outpatient as mentioned above Anxiety/depression, psychiatric history - per CM note, history of psych hospitalization within the past 1-2 years - continue home duloxetine 60mg PO BID - continue hydroxyzine 10mg PO TID PRN - close f/u with PCP as above Obstructive sleep apnea/obesity hypoventilation syndrome - CPAP QHS while hospitalized - recommend sleep study as outpatient T2DM - A1c 7.5 - no treatment of DM for almost a year (per patient) - SSI/basal insulin during hospitalization - re-started home Januvia 100mg PO daily on discharge HLD - continue atorvastatin 20mg PO daily, consider increase to 40mg as outpatient (2) Acute respiratory failure with hypoxemia: (3) DAISY (obstructive sleep apnea): (4) DMII (diabetes mellitus, type 2): (5) Hypomagnesemia: (6) Acute hypokalemia: (7) HTN (hypertension): (8) Pulmonary hypertension: (9) Elevated troponin: (10) Diastolic dysfunction: (11) Depression with anxiety: Total Time Total Time Spent Total Time Spent (In Minutes): 45 minutes Discharge Plan Discharge Items Patient Disposition: Home - Self-Care Reason For Visit: ASTHMA EXACERBATION Discharge Diagnosis: Asthma Exacerbation Viral Pneumonia Condition on Discharge: Fair Activity: Per Instructions section Non-emergency contact: Primary Care Provider and Manufacturing Plant Manager Call non-emergency contact if: you have any medication questions, your symptoms worsen and you have a fever Follow-up/Referrals: Loreta Smith [Primary Care Provider] - None (You have an appt on 10/04 at 1030. This appt is with your PCP. Please arrive 15 minutes prior to your appt time. If this appt does not fit your schedule please call [phone] to reschedule. ) Fredy Bullock MD [Resident] - Diet: Carb Consistent or DM2, Heart Healthy and Low Sodium (2gm) Addtl Attending Provider Instructions: You presented to [facility] on 09/27/2020 with shortness of breath and wheezing concerning for an asthma exacerbation. When you came to the Emergency Department, you had a chest x-ray that showed a pneumonia in your lungs, which was likely the cause of your asthma exacerbation. You were started on IV steroids, nebulizers and an antibiotic on admission. You did well on these medications and treatments, and your IV steroids were able to be transitioned to oral steroids starting on 10/01/2020. After discharge, you should continue to take the steroids (Prednisone) for 5 more days: 60 mg (3 pills) tomorrow, 40mg (2 pills) for the next 2 days, and 20 mg (1 pill) for the next 2 days. You should also continue to take a daily inhaler, twice a day: the inhaler is called Budesonide which is a more financially affordable inhaler. You should also take Albuterol nebulizer as needed for shortness of breath NOT CONTROLLED by your daily inhaler. Your blood pressure was also very high when you were admitted, and you were re- started on your home medications, in addition to another medication called Amlodipine, which helped to control your blood pressure. After discharge you should take 2 blood pressure medications: Losartan 50 mg once daily and Amlodipine 5 mg once daily. For your diabetes, you should continue to take your Januvia once daily. Lastly, you should continue to take your regular Cymbalta daily for your depression and anxiety. You can also take the Hydroxyzine as needed for anxiety NOT CONTROLLED by daily Cymbalta. Most importantly, I recommend that you follow-up closely with your PCP. You currently have an appointment with me (Dr. Bullock) at [facility] on 10/14 at 11:00 am. You should also re-establish with Dr. Lujan (Cardiology) given your Echocardiogram findings and current hospitalization. Lastly, I recommend that you get a sleep study done, in order to formally diagnosis sleep apnea and get you a CPAP machine at home. I can help to arrange this when I see you at the office. Pending Studies at Discharge: No Stand-Alone Forms: My [facility], Smoking Cessation Medications and DC Order Prescriptions: New budesonide 1 mg/2 mL suspension for nebulization 0.5 mg inhalation Q12H Qty: 60 RF: 3 amlodipine 5 mg tablet 5 mg PO DAILY Qty: 90 RF: 3 losartan 50 mg tablet 50 mg PO DAILY Qty: 90 RF: 3 prednisone 20 mg tablet See Rx Instructions .ROUTE .COMPLEX 5 Days Qty: 10 RF: 0 Continued atorvastatin 20 mg tablet 20 mg PO DAILY RF: 0 duloxetine 60 mg capsule,delayed release(DR/EC) 60 mg PO BID RF: 0 Januvia 100 mg tablet 100 mg PO DAILY RF: 0 albuterol sulfate 2.5 mg /3 mL (0.083 %) solution for nebulization 6 ml Inhalation Q6 PRN (Reason: Shortness Of Breath) RF: 0 albuterol sulfate [Ventolin HFA] 90 mcg/actuation Hfa Aerosol Inhaler 2 puff INHALATION QID PRN (Reason: Shortness Of Breath) RF: 0 Discontinued Flovent HFA 220 mcg/actuation HFA aerosol inhaler 1 puff inhalation BID PRN (Reason: Shortness Of Breath Or Wheezing) RF: 0 bupropion HCl 300 mg tablet extended release 24 hr 0 mg PO HS RF: 0 hydralazine 50 mg Tablet 50 mg PO TID RF: 0 Discharge Orders: Discharge Order (Routine); Ordered 10/01/20 Ordered By: Fredy Lorenz/Other Patient Handouts: Managing Type 2 Diabetes, Managing Diabetes: The A1C Test Admission Data Admit Date/Time: 09/27/20 01:41 Attending Provider: Matias Arriola Admit Provider: Ankita Coronado Primary Care Provider: Loreta Smith Other Providers: Mikhail Vasquez ; Toño Gamble Other Interventions: Discharge Summary Assessment (RN) Last Done: 10/01/20 12:14 Supervising Physician Co-Signing Physician Notes I personally examined the patient and verified all villanueva points of history and exam, discussed case, and agree with decision making with Dr Bullock. feels up to going home, breathing better. headache improved. BP improving vitals noted nad heent nc at mmm breathing unlabored no accessory muscles good effort skin no rashes no pallor or icterus neuro no focal deficits asthma exacerbation - related to pneumonia - improved. stable for home. inha ler/neb regimen set up. taper steroids elevated troponin - demand ischemia - but will want outpt cardio eval to help determine ?presence of CAD vs all just R sided strain from asthma/DAISY. asa for now uncontrolled HTN - improving w amlodipine, continue at home/titrate as necessary DAISY - needs outpt sleep study DVT proph - lovenox otherwise as above Resident Activity Tracking Resident Involvement: Resident Care Provided Care Provided: Adult Hospital Medicine
--- NOTE | 2020-10-01 14:30 | Electrocardiogram Report ---
Test Reason : Blood Pressure : / mmHG Vent. Rate : 083 BPM Atrial Rate : 083 BPM P-R Int : 162 ms QRS Dur : 104 ms QT Int : 414 ms P-R-T Axes : 050 053 159 degrees QTc Int : 486 ms Normal sinus rhythm Right atrial enlargement Left ventricular hypertrophy with repolarization abnormality Prolonged QT Abnormal ECG When compared with ECG of 26-SEP-2020 23:37, No significant change was found Confirmed by Zack Ring ([id number]) on 10/01/2020 2:30:34 PM Referred By: REFERRED SELF Confirmed By:Zack Ring
--- NOTE | 2020-10-01 15:49 | Billing Data ---
Date of Service October 01, 2020 Coding Level of Care Code D/C Day Management <30 mins
== END 2020-10-01 13:20 | disposition home or self-care (01) | DRG 193 ==
LOC: ED 21:25 → SUATTDRO 09-27 01:41 → 2N 09-27 01:41

== ENCOUNTER 2022-05-21 17:30 | Inpatient (IN) ==
[2022-05-21] MEDS ORDERED: PIPERACILLIN/TAZOBACTAM 4.5 GM/120 ML BAG IV ONE (18:45)
[2022-05-21] MEDS ORDERED: SODIUM CHLORIDE 0.9% 1000ML 1,000 ML IV STA (18:45)
[2022-05-21 18:48] LABS: Basophils # (auto) 0.05 K/uL (0-0.2); Basophils % (auto) 0.4 %; Eosinophils # (auto) 0.16 K/uL (0-0.50); Eosinophils % (auto) 1.3 %; Hematocrit (blood only) 40.7 % (34.1-44.9); Hemoglobin 13.5 g/dl (12.0-16.0); Immature Granulocytes # (auto) 0.06 K/uL (0.00-0.02); Immature Granulocytes % (auto) 0.5 %; Lymphocytes # (auto) 2.99 K/uL (1.2-3.4); Lymphocytes % (auto) 23.8 %; Mean Corpuscular Hemoglobin 28.4 pg (25.0-34.0); Mean Corpuscular Hgb Conc 33.2 g/dL (32.0-36.0); Mean Corpuscular Volume 85.7 fL (80.0-100.0); Mean Platelet Volume 10.8 fL (9.4-12.3); Monocytes % (auto) 7.2 %; Neutrophils # (auto) 8.38 K/uL (1.4-6.5); Neutrophils % (auto) 66.8 %; Platelet Count 358 K/uL (130-400); RDW Coefficient of Variation 13.5 % (11.5-14.5); RDW Standard Deviation 42.4 fL (36.4-46.3); Red Blood Count 4.75 M/uL (3.93-5.22); White Blood Count 12.54 K/ul (4.8-10.8)
[2022-05-21 19:04] LABS: Albumin Globulin Ratio 1.1 (0.9-2); Albumin Level 4.1 gm/dl (3.4-5.0); BUN Creatinine Ratio 21.9 (10-20); Bilirubin,Total 0.4 mg/dl (0.2-1.0); Calcium 9.3 mg/dl (8.5-10.1); Creatinine Clr Calc Pharmacy 125.3 ml/min; Est GFR (African American) 106.7 ml/min; Est GFR (Non-African American) 92.1 ml/min; Globulin 3.8 gm/dl (2.5-4.0); Potassium 3.7 mmol/L (3.5-5.1); Total Protein 7.9 gm/dl (6.0-8.3)
[2022-05-21] MEDS ORDERED: MoRPHine SULFATE 4 MG/ML 1 ML CARP\\VIAL IV STA (19:05)
[2022-05-21] MEDS ORDERED: SODIUM CHLORIDE 0.9% 1000ML 1,000 ML IV ONE (19:05)
[2022-05-21] MEDS ORDERED: ONDANSETRON INJ 2 MG/ML 2 ML VIAL IV STA (19:05)
[2022-05-21] MEDS ORDERED: MoRPHine SULFATE 4 MG/ML 1 ML CARP\\VIAL IV PRN (19:05)
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
[2022-05-21 19:17] LABS: C Reactive Protein 3.45 mg/dl (0-0.5)
[2022-05-21] MEDS ORDERED: OPTIRAY 300 500mL IV ONE (19:29)
--- NOTE | 2022-05-21 20:33 | CT Scan Report ---
ABDOMEN AND PELVIS CT WITH IV CONTRAST CT DOSE: 1964.26 mGy.cm HISTORY: Acute pelvic and rectal pain rectal pain TECHNIQUE: Multiaxial CT images of the abdomen and pelvis were performed following the IV administrat ion of 112 cc of Optiray, A dose lowering technique was utilized adhering to the principles of ALARA . COMPARISON STUDY: CT abdomen and pelvis 12/01/2012 FINDINGS: Mild cardiomegaly. Clear lung bases. No pneumatosis or pneumoperitoneum. The spleen, pancre as and adrenal glands are unremarkable. Cholecystectomy. Hepatomegaly with hepatic steatosis. 1.5 cm hypodense structure within the superior pole right kidney has increased in size from the prior study and is suggestive of a probable cyst. No hydronephrosis. Unremarkable urinary bladder, uterus and adn exa. Bilateral inguinal chain adenopathy measures up to 3.1 x 1.4 cm on the right. Atherosclerosis of the abdominal aorta. No bowel obstruction. Moderate colonic fecal retention. There is wall thickening within the rectum wi th adjacent perirectal inflammatory stranding. Wall thickening with luminal narrowing is also noted i nvolving the mid aspect of the descending colon on image 220 with mild adjacent pericolonic inflammat ion. Normal appendix. Small fat filled periumbilical and supraumbilical hernias are redemonstrated. S tranding within the anterior subcutaneous tissues suggestive of additional injection sites. No acute fracture. Degenerative changes of the spine, pelvis and hips. IMPRESSION: 1. Mild wall thickening of the descending colon and rectum with mild adjacent inflammatory stranding is suggestive of a nonspecific proctocolitis. 2. No bowel obstruction or pneumoperitoneum. Normal appendix. 3. Small fat filled umbilical and supraumbilical hernias are redemonstrated. 4. Mild nonspecific bilateral inguinal adenopathy. 5. Hepatomegaly with hepatic steatosis. ACT 112: Negative or not required by law. The above report was generated using voice recognition software. It may contain grammatical, syntax o r spelling errors. Electronically signed by: Nicanor Ding M.D. 05/21/2022 8:31 PM
--- NOTE | 2022-05-21 22:06 | History & Physical Report ---
Date of Service May 21, 2022 Assessment & Plan (1) Proctocolitis: Plan: CT a/p showed non-specific, mild proctocolitis. ALSO showed "Wall thickening with luminal narrowing is also noted involving the mid aspect of the descending colon" and inguinal lymphadenopathy up to 3.1x1.4 cm. Possible IBD (Crohn's) given several areas of irritation and a new stricture, though her constellation of symptoms does not otherwise appear consistent with this. Alternatively, STI such as lymphogranuloma venereum could be possible as well. - Defer further abx as I am not seeing any urgent indication for them. Can gather more info before starting empiric abx. - Chlamydia / GC PCR ordered -> If positive, would obviously treat. - GI consult - While my concern for IBD is relatively low, could consider sigmoidoscopy if any concern - Pain control (2) DMII (diabetes mellitus, type 2): Plan: A1c was 10.2% in 01/2022. - Hold home meds - Sliding scale insulin - Repeat A1c (3) HTN (hypertension): Plan: BP in ER is 120/55. - Continue home meds (4) Asthma: Plan: No wheezing or shortness of breath today. - Continue home meds - Albuterol PRN (5) DVT prophylaxis: Plan: High risk given prior DVT. - Lovenox 40 mg SQ Q12h -> Higher dose for obesity History of Present Illness Primary Care Provider: Loreta Smith 57yo F w/ hx of non-ischemic cardiomyopathy, recent breast abscess, DM, and obesity who presents with proctocolitis and rectal pain. Per patient, she recently had a breast abscess/infection. It began in late January, and she was in a hospital for a few days on IV abx before finishing a course with oral abx. The infection didn't fully resolve, and she underwent I&D with Dr. Duff on 03/05. She finished abx after that and has done well. About 3 days ago, she noted severe pain in the rectal area. There was no inciting factor at all. She denies any preceding diarrhea or constipation. In fact, she has been eating more fruits and vegetables and reports that she has 1- 2 normal BMs most days. She has not noted any blood, melena, mucus, or other concerning changes. She has not had any abdominal pain, change in appetite, bloating, nausea, vomiting, or other concerning symptoms. She has lost about 20 lbs in 2 months, but she reports she is actively dieting and eating better. She denied to myself and the ER physician any recent sexual intercourse, and denied specifically any anal intercourse. No family history of autoimmune diseases such as Crohn's disease or ulcerative colitis. Allergies Allergy/AdvReac Type Severity Reaction Status Date / Time bee venom protein (honey bee) Allergy Severe Anaphylaxis Verified 03/17/22 11:46 ibuprofen Allergy Mild swelling Verified 03/17/22 11:46 metformin Allergy Mild Gastrointestinal Verified 03/17/22 11:46 Upset mushroom Allergy Mild swelling Verified 03/17/22 11:46 Home Medications Medication Instructions Recorded Confirmed Type albuterol sulfate 2.5 mg/3 mL 6 ml inhalation Q6 PRN Shortness 08/12/18 03/10/22 History (0.083 %) solution for nebulization Of Breath albuterol sulfate 90 mcg/actuation 2 puff inhalation QID PRN 08/12/18 03/10/22 History aerosol inhaler (Ventolin HFA) Shortness Of Breath atorvastatin 20 mg tablet 20 mg PO QAM 07/03/19 03/10/22 History sitagliptin 100 mg tablet (Januvia) 100 mg PO QAM 09/26/20 03/10/22 History budesonide 1 mg/2 mL suspension 0.5 mg inhalation HS 01/27/22 03/10/22 History for nebulization losartan 50 mg tablet 50 mg PO QAM 01/27/22 03/10/22 History amlodipine 5 mg tablet 10 mg PO QAM 03/04/22 03/10/22 History duloxetine 60 mg capsule,delayed 30 mg PO BID 03/04/22 03/10/22 History release levofloxacin 500 mg tablet 500 mg PO QAM 03/04/22 03/10/22 History linezolid 600 mg tablet (Zyvox) 600 mg PO BID 03/04/22 03/10/22 History aspirin 81 mg PO DAILY 03/05/22 03/10/22 History hydrocodone 5 mg-acetaminophen 325 1 - 2 tab PO Q8H PRN pain, for 03/09/22 03/10/22 Rx mg tablet initial therapy, max 6 tabs per day #15 tabs Past Med/Surg History Medical History Anemia Anxiety Asthma inhalers daily/prn Bite by animal not sure what bit her while on vacation in [place] and has wound on breast Deep vein thrombosis in wrist after IV--no blood thinners Depression Diabetes mellitus, type 2 NIDDM History of congestive heart failure EF 45-50%, Grade II diastolic dysfunction on 08/2020 echo History of pneumonia recent 09/2020 HTN (hypertension) Hyperlipidemia Migraine DAISY (obstructive sleep apnea) Pulmonary hypertension 50-60 mmHg TTE 2020 per records, during hospitalization for asthma exacerbation, advised to f/u outpatient with [facility] cardio Surgical History History of bilateral tubal ligation History of section x2 History of cholecystectomy History of colonoscopy History of dilatation and curettage x2 History of nasal cauterization History of wisdom tooth extraction Hx of cataract extraction LT. Family History Other No family history of adverse response to anesthesia Social History Smoking Status: Current every day smoker Tobacco Type: Cigarettes Cigarettes Per Day: 10; Second Hand Exposure: No; Hx Alcohol Use: Yes Alcohol type: wine Hx Substance Use: Yes Last Used Substance Other:: medical marijuana Substance Use Type Other:: for "depression", "uses gummies every day" Preferred Language: Macedonian Communication Ability: Effective Window Repairer Required: No Beliefs That Will Affect Care: None marital status: Current Living Situation: Family Current Living Situation Comment: teen grandson current occupational status: employed 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 How many Children do You have: 4 Feels Safe at Home: Yes during the past year weight has: remained stable Assistive Devices: None Review of Systems Review of Systems: All systems reviewed & are unremarkable except as noted in HPI & below Physical Exam Constitutional: WD/WN, vitals as above Eyes: EOM intact bilaterally; no conjunctival abnormality ENMT: external ear and nose normal, oropharynx normal Neck: trachea midline, no thyromegaly normal visual inspection Respiratory: normal respiratory effort, lungs clear to auscultation no respiratory distress Cardiovascular: RRR, no murmur, no edema Gastrointestinal (Abdomen): Inspection/Auscultation: abdomen normal to inspection; abdomen not distended Percussion/Palpation: abdomen soft; abdomen nontender, no guarding and abdomen not rigid Rectal Exam: + rectal tenderness and + rectal lesions (Some irritation, but hard to determine due to patient body habitus and pain) Musculoskeletal: no cyanosis or clubbing, extremities motor strength 5/5 Skin: no rashes, warm and dry Neurologic: moves all extremities and awake Psychiatric: Orientation: alert, oriented to person and cooperative Results & Data Results & Data ([facility]) Vital Signs (Past 12 Hours) Vital Signs Temp Pulse Pulse Resp BP BP Pulse Ox 05/21/22 19:43 88 20 124/63 95 05/21/22 19:29 88 22 98 05/21/22 17:55 36.8 C 111 H 22 158/88 H 97 O2 Del Method 05/21/22 19:43 Room Air 05/21/22 19:29 Room Air 05/21/22 17:55 Room Air Code Status & VTE Plan VTE Prophylaxis Plan VTE Prophylaxis will be ordered: Yes PG Care Time/CCT Total # of Minutes Spent Total Time Spent with Patient: Total time spent is greater than 50% in coordination of care (as documented) at patient's floor/unit and/or counseling patient: Coding Level of Care Code INT OBSERVATION CARE 70M LVL 3 Diagnoses Proctocolitis K52.9 DMII (diabetes mellitus, type 2) E11.9 HTN (hypertension) I10 Asthma J45.909 DVT prophylaxis Z29.9
[2022-05-22] MEDS ORDERED: GLUCAGON FOR INJ 1 MG VIAL SQ PRN (00:12)
[2022-05-22] MEDS ORDERED: ONDANSETRON INJ 2 MG/ML 2 ML VIAL IV PRN (00:12)
[2022-05-22] MEDS ORDERED: CARBOHYDRATES FOR HYPOGLYCEMIA PO PRN (00:12)
[2022-05-22] MEDS ORDERED: ALBUTEROL HFA 8 GM INHALER INH PRN (00:12)
[2022-05-22] MEDS ORDERED: DEXTROSE 50% 50 ML SYRINGE IV PRN (00:12)
[2022-05-22] MEDS ORDERED: GLUCOSE 40% GEL 15 GM TUBE PO PRN (00:12)
[2022-05-22] MEDS ORDERED: ACETAMINOPHEN 325 MG TAB PO PRN (00:12)
[2022-05-22] MEDS ORDERED: GLUCOSE 10 TAB/TUBE PO PRN (00:12)
[2022-05-22] MEDS: MoRPHine SULFATE 4 MG/ML 1 ML CARP\\VIAL IV PRN ×5 (01:22→18:37)
[2022-05-22] MEDS: INSULIN ASPART PER UNIT SC SCH ×5 (01:23→20:49)
[2022-05-22 07:22] LABS: Hematocrit (blood only) 37.5 % (34.1-44.9); Hemoglobin 12.3 g/dl (12.0-16.0); Mean Corpuscular Hemoglobin 28.2 pg (25.0-34.0); Mean Corpuscular Hgb Conc 32.8 g/dL (32.0-36.0); Mean Platelet Volume 10.6 fL (9.4-12.3); Platelet Count 311 K/uL (130-400); RDW Coefficient of Variation 13.6 % (11.5-14.5); RDW Standard Deviation 43.1 fL (36.4-46.3); Red Blood Count 4.36 M/uL (3.93-5.22); White Blood Count 10.91 K/ul (4.8-10.8)
[2022-05-22 07:37] LABS: Estimated Average Glucose 189 mg/dl; Hemoglobin A1C 8.2 % (4.5-5.6)
[2022-05-22 07:45] LABS: BUN Creatinine Ratio 17.5 (10-20); Calcium 8.9 mg/dl (8.5-10.1); Creatinine Clr Calc Pharmacy 161.4 ml/min; Est GFR (African American) 120.1 ml/min; Est GFR (Non-African American) 103.6 ml/min; Magnesium 1.7 mg/dl (1.7-2.4); Potassium 3.6 mmol/L (3.5-5.1)
[2022-05-22] MEDS: ENOXAPARIN INJ 40 MG/0.4 ML SYR SQ SCH ×2 (08:25→20:15)
[2022-05-22] MEDS: ATORVASTATIN 20 MG TAB PO SCH (08:25)
[2022-05-22] MEDS: amLODIPine BESYLATE 5 MG TAB PO SCH (08:25)
[2022-05-22] MEDS: LOSARTAN POTASSIUM 50 MG TAB PO SCH (08:25)
[2022-05-22] MEDS: ASPIRIN 81 MG ECTAB PO SCH (08:25)
[2022-05-22] MEDS: DULoxetine HCL 30 MG CAP PO SCH ×2 (08:25→20:14)
--- NOTE | 2022-05-22 09:07 | Gastrointestinal Consultation ---
Date of Consultation May 22, 2022 Assessment & Plan (1) Proctocolitis: (2) Abdominal pain: Plan Discussed with Dr. Mtz who helped advise on plan. - will start miralax 17 gm twice daily for constipation at present, then decrease to once daily when she is moving her bowels. She also had moderate fecal retention on CT. suspect her discomfort may be related to constipation. - Patient tells me she does not want to set up a colonoscopy as an inpatient. Patient can set up outpatient colonoscopy with her regular Vertical Lathe Operator at [facility] to evaluate the CT findings. Supervising Physician Co-Signing Physician Notes Agree with JAQUELIN Sahni as above Gen: Obese, cooperative, NAD Chest: CTA B/L CVS: RRR Abd: Soft, Tender b/l lower, ND, +BS, -HSM Recommend Miralax 17 g BID until she starts having BM's then decrease to once daily Outpatient colonoscopy with PS....TAYLER Novak with [facility] will arrange. History of Present Illness Reason for Consultation: Dr. Eugenio Vivas Requesting Physician: Proctocolitis Attending Physician: Hui Lagos MD History of Present Illness Patient is a 57 year old female with a past medical history of non-ischemic cardiomyopathy, recent breast abscess, DM, and obesity who presented to the ED with complaints of rectal pain for 3 days. she tells me this is constant and uncomfortable. She tells me that she also has had new constipation and admits she has not moved her bowels in 5 days prior to admission. Typically she moves bowels every day. She is also having some lower abdominal pain in the LLQ. mild. Patient denies any current issues with nausea, vomiting, dysphagia, heartburn, unintentional weight loss, melena, or bright red blood per rectum. She has denied any anal intercourse. No family history of IBD. Last colonoscopy was done in 2019 and was unremarkable. She follows with [facility]. Allergies Allergy/AdvReac Type Severity Reaction Status Date / Time bee venom protein (honey bee) Allergy Severe Anaphylaxis Verified 03/17/22 11:46 ibuprofen Allergy Mild swelling Verified 03/17/22 11:46 metformin Allergy Mild Gastrointestinal Verified 03/17/22 11:46 Upset mushroom Allergy Mild swelling Verified 03/17/22 11:46 Home Medications Medication Instructions Recorded Confirmed Type albuterol sulfate 2.5 mg/3 mL 6 ml inhalation Q6 PRN Shortness 08/12/18 03/10/22 History (0.083 %) solution for nebulization Of Breath albuterol sulfate 90 mcg/actuation 2 puff inhalation QID PRN 08/12/18 03/10/22 History aerosol inhaler (Ventolin HFA) Shortness Of Breath atorvastatin 20 mg tablet 20 mg PO QAM 07/03/19 03/10/22 History sitagliptin 100 mg tablet (Januvia) 100 mg PO QAM 09/26/20 03/10/22 History budesonide 1 mg/2 mL suspension 0.5 mg inhalation HS 01/27/22 03/10/22 History for nebulization losartan 50 mg tablet 50 mg PO QAM 01/27/22 03/10/22 History amlodipine 5 mg tablet 10 mg PO QAM 03/04/22 03/10/22 History duloxetine 60 mg capsule,delayed 30 mg PO BID 03/04/22 03/10/22 History release levofloxacin 500 mg tablet 500 mg PO QAM 03/04/22 03/10/22 History linezolid 600 mg tablet (Zyvox) 600 mg PO BID 03/04/22 03/10/22 History aspirin 81 mg PO DAILY 03/05/22 03/10/22 History hydrocodone 5 mg-acetaminophen 325 1 - 2 tab PO Q8H PRN pain, for 03/09/22 03/10/22 Rx mg tablet initial therapy, max 6 tabs per day #15 tabs Patient History Medical History Anemia Anxiety Asthma inhalers daily/prn Bite by animal not sure what bit her while on vacation in [place] and has wound on breast Deep vein thrombosis in wrist after IV--no blood thinners Depression Diabetes mellitus, type 2 NIDDM History of congestive heart failure EF 45-50%, Grade II diastolic dysfunction on 08/2020 echo History of pneumonia recent 09/2020 HTN (hypertension) Hyperlipidemia Migraine DAISY (obstructive sleep apnea) Pulmonary hypertension 50-60 mmHg TTE 2020 per records, during hospitalization for asthma exacerbation, advised to f/u outpatient with [facility] cardio Surgical History History of bilateral tubal ligation History of section x2 History of cholecystectomy History of colonoscopy History of dilatation and curettage x2 History of nasal cauterization History of wisdom tooth extraction Hx of cataract extraction LT. Family History Other No family history of adverse response to anesthesia Social History Smoking Status: Current every day smoker Tobacco Type: Cigarettes Cigarettes Per Day: 10; Second Hand Exposure: No; Hx Alcohol Use: Yes Alcohol type: wine Hx Substance Use: Yes Last Used Substance: Days (ago) Last Used Substance Other:: medical marijuana Substance Use Type Other:: pt states she uses medical marijuana Preferred Language: Singaporean Communication Ability: Effective Automotive Generator Repairer Required: No Beliefs That Will Affect Care: None marital status: Current Living Situation: Family Current Living Situation Comment: grandson current occupational status: employed 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 no guarding. soft. normal bowel sounds. Skin: no rashes, warm and dry Psychiatric: Orientation: alert and oriented x 3 Affect: euthymic affect Results & Data ([facility]) Vital Signs (Past 12 Hours) Vital Signs Temp Pulse Resp BP Pulse Ox O2 Del Method 05/22/22 08:01 36.5 C 77 20 135/82 92 Room Air 05/22/22 00:12 36.5 C 84 18 150/84 H 97 Room Air 05/22/22 00:20 36.5 C 84 18 150/84 H 97 Room Air 05/21/22 23:31 78 18 114/64 92 Room Air 05/21/22 21:45 88 18 119/54 L 96 Room Air PG Care Time/CCT Total # of Minutes Spent Total Time Spent with Patient: Total time spent is greater than 50% in coordination of care (as documented) at patient's floor/unit and/or counseling patient: Coding Level of Care Code 62916 Inpt Consult Level 4 Diagnoses Proctocolitis K52.9 Abdominal pain R10.30 Abdominal location: lower abdomen, unspecified (1) Abdominal pain Abdominal location: lower abdomen, unspecified Qualified Code(s): R10.30 - Lower abdominal pain, unspecified
[2022-05-22] MEDS ORDERED: POLYETHYLENE (MIRALAX) 17 GM PACK PO SCH (10:00)
--- NOTE | 2022-05-22 11:53 | Hospitalist Progress Note ---
Date of Service May 22, 2022 Assessment & Plan (1) Proctocolitis: Plan: CT a/p showed non-specific, mild proctocolitis. ALSO showed "Wall thickening with luminal narrowing is also noted involving the mid aspect of the descending colon" and inguinal lymphadenopathy up to 3.1x1.4 cm. Possible IBD (Crohn's) given several areas of irritation and a new stricture, though her constellation of symptoms does not otherwise appear consistent with this. Alternatively, STI such as lymphogranuloma venereum could be possible as well. - DDX: Stercoral vs. infective, vs. other as above- appreciate GI consultation - She reports pain and burning with defecation and denies a history of hemorrhoids, but from her description this sounds consistent with hemorrhoids - however non-specific colitis with lymphadenopathy will place back on Zosyn- continue to trend CBC and fever curve - sexual history as per HPI - Chlamydia / GC PCR ordered -> If positive, would obviously treat. - GI consult - pending - Pain control - (2) DMII (diabetes mellitus, type 2): Plan: A1c was 10.2% in 01/2022. - Hold home meds - Sliding scale insulin - Repeat A1c - follow up with PCP - HGB A1C 8.2% (3) HTN (hypertension): Plan: BP in ER is 120/55. - Continue home meds (4) Asthma: Plan: No wheezing or shortness of breath today. - Continue home meds - Albuterol PRN (5) Skin lesion: Plan: She notes that she has been having some pain under her breasts and left breast with some drainage noted last week - she has some skin excoriation there, but left breast with palpable superficial hardened area from which was draining- this was cultured in February as well as I&D and was negative- - will obtain ultrasound of the left breast eval for any abscess, although not warm/red/or with current drainage - other lesions are small raised, red and other is scabbed over, without itching or pain and not fluid containing - Noted fluid collection with ultrasound- will consult surgery (6) DAISY (obstructive sleep apnea): Plan: HX of as well as non-tolerant to BIPAP - no acute needs - in house BiPAP if needed (7) DVT prophylaxis: Plan: High risk given prior DVT. 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 Noted to have non-specific colitis and area on rectum. She was given IV ABX in the EMD and non overnight following admission. She remains with rectal pain and burning with movement and defecation, she noted some blood with her bowel movement, but denies any history of hemorrhoids. She states that she felt a soft lump on the side wall of her rectum and as this hurt with defecation she was trying not to go to the bathroom. She does not note any fevers at home or other abdominal pain. She does note that she has had some skin lesions come up on her arms and chest. Her breast area had under her left was previously I&D with [place] drain in February, she states that this had some drainage the other week. She has pending G&C studies and no sexual history of close contact with anyone else being sick in the past. Will however restart her abx as her WBC count is downtrending, but CRP elevated and would like to follow her fever curve and further response. Review of Systems Review of Systems: REVIEW OF SYSTEMS: Constitutional: No fever, sweats or chills Eyes: No diplopia, no worsening or blurred vision ENT: normal hearing, no trouble swallowing Respiratory: No cough, sputum, dyspnea at rest or on exertion Cardiovascular: No chest pain, tightness or palpitations Abdomen: (+) constipation, No pain, nausea, vomiting, Musculoskeletal: No joint pain, calf pain, swelling Neurologic: No weakness, numbness/tingling, or balance problems Psychiatric: No anxiety or depression Skin: (+) small irritation under breasts, and lesion arm arms Physical Exam Physical Exam: PHYSICAL EXAM: General: awake, alert, no apparent distress Head: Normocephalic, atraumatic ENT: PERRL, EOMI, no pharyngeal exudate, mucous membranes moist Neuro: AAO x 3, speech clear and appropriate, strength intact bilaterally 5/5, sensation intact and equal all extremities and dermatomes, no pronator drift Chest: equal rise and fall of the chest, no accessory muscle use, no heaves or thrills, Clear to auscultation, on room air, Cardiac: Regulars S1/S2, skin warm dry, cap refill <3 seconds, peripheral pulses +2 no JVD, no murmur, no edema GI: NABS x 4 quadrants, soft, nontender to palpation, no rebound, guarding or tenderness, recatal "burning" and pain, body habitus makes it hard for visual exam : Spontaneously voiding, no pain, no CVA tenderness, Extremities: Normal inspection, no peripheral edema or erythema, calfs nontender to palpation Psych: Normal mood and affect Skin: small pinpoint lesions on arms/forearms various stage just redness vs. scabbed over, not fluid filled or draining on exam and non tender Results & Data Results & Data ([facility]) Vital Signs (Past 12 Hours) Vital Signs Temp Pulse Resp BP Pulse Ox O2 Del Method 05/22/22 08:01 36.5 C 77 20 135/82 92 Room Air 05/22/22 00:12 36.5 C 84 18 150/84 H 97 Room Air 05/22/22 00:20 36.5 C 84 18 150/84 H 97 Room Air Laboratory Results Abdomen/Pelvis CT 05/21/22 19:[address] WITH IV CONTRAST CT DOSE: 1965.26 mGy.cm HISTORY: Acute pelvic and rectal pain rectal pain TECHNIQUE: Multiaxial CT images of the abdomen and pelvis were performed following the IV administration of 112 cc of Optiray, A dose lowering technique was utilized adhering to the principles of ALARA. COMPARISON STUDY: CT abdomen and pelvis 12/01/2012 FINDINGS: Mild cardiomegaly. Clear lung bases. No pneumatosis or pneumoperitoneum. The spleen, pancreas and adrenal glands are unremarkable. Cholecystectomy. Hepatomegaly with hepatic steatosis. 1.5 cm hypodense structure within the superior pole right kidney has increased in size from the prior study and is suggestive of a probable cyst. No hydronephrosis. Unremarkable urinary bladder, uterus and adnexa. Bilateral inguinal chain adenopathy measures up to 3.1 x 1.4 cm on the right. Atherosclerosis of the abdominal aorta. No bowel obstruction. Moderate colonic fecal retention. There is wall thickening within the rectum with adjacent perirectal inflammatory stranding. Wall thickening with luminal narrowing is also noted involving the mid aspect of the descending colon on image 220 with mild adjacent pericolonic inflammation. Normal appendix. Small fat filled periumbilical and supraumbilical hernias are redemonstrated. Stranding within the anterior subcutaneous tissues suggestive of additional injection sites. No acute fracture. Degenerative changes of the spine, pelvis and hips. IMPRESSION: 1. Mild wall thickening of the descending colon and rectum with mild adjacent inflammatory stranding is suggestive of a nonspecific proctocolitis. 2. No bowel obstruction or pneumoperitoneum. Normal appendix. 3. Small fat filled umbilical and supraumbilical hernias are re-demonstrated. 4. Mild nonspecific bilateral inguinal adenopathy. 5. Hepatomegaly with hepatic steatosis. ACT 112: Negative or not required by law. The above report was generated using voice recognition software. It may contain grammatical, syntax or spelling errors. Electronically signed by: Nicanor Ding M.D. 05/21/2022 8:31 PM Diagnostic Findings Abdomen/Pelvis CT 05/21/22 19:[address] WITH IV CONTRAST CT DOSE: 1964.26 mGy.cm HISTORY: Acute pelvic and rectal pain rectal pain TECHNIQUE: Multiaxial CT images of the abdomen and pelvis were performed following the IV administration of 112 cc of Optiray, A dose lowering technique was utilized adhering to the principles of ALARA. COMPARISON STUDY: CT abdomen and pelvis 12/01/2012 FINDINGS: Mild cardiomegaly. Clear lung bases. No pneumatosis or pneumoperitoneum. The spleen, pancreas and adrenal glands are unremarkable. Cholecystectomy. Hepatomegaly with hepatic steatosis. 1.5 cm hypodense structure within the superior pole right kidney has increased in size from the prior study and is suggestive of a probable cyst. No hydronephrosis. Unremarkable urinary bladder, uterus and adnexa. Bilateral inguinal chain adenopathy measures up to 3.1 x 1.4 cm on the right. Atherosclerosis of the abdominal aorta. No bowel obstruction. Moderate colonic fecal retention. There is wall thickening within the rectum with adjacent perirectal inflammatory stranding. Wall thickening with luminal narrowing is also noted involving the mid aspect of the descending colon on image 220 with mild adjacent pericolonic inflammation. Normal appendix. Small fat filled periumbilical and supraumbilical hernias are redemonstrated. Stranding within the anterior subcutaneous tissues suggestive of additional injection sites. No acute fracture. Degenerative changes of the spine, pelvis and hips. IMPRESSION: 1. Mild wall thickening of the descending colon and rectum with mild adjacent inflammatory stranding is suggestive of a nonspecific proctocolitis. 2. No bowel obstruction or pneumoperitoneum. Normal appendix. 3. Small fat filled umbilical and supraumbilical hernias are redemonstrated. 4. Mild nonspecific bilateral inguinal adenopathy. 5. Hepatomegaly with hepatic steatosis. ACT 112: Negative or not required by law. The above report was generated using voice recognition software. It may contain grammatical, syntax or spelling errors. Electronically signed by: Nicanor Ding M.D. 05/21/2022 8:31 PM Medications Administered Home Medications albuterol sulfate 2.5 mg/3 mL (0.083 %) solution for nebulization 6 ml inhalation Q6 PRN Shortness Of Breath 08/12/18 [History Confirmed 03/10/22] albuterol sulfate 90 mcg/actuation aerosol inhaler (Ventolin HFA) 2 puff inhalation QID PRN Shortness Of Breath 08/12/18 [History Confirmed 03/10/22] atorvastatin 20 mg tablet 20 mg PO QAM 07/03/19 [History Confirmed 03/10/22] sitagliptin 100 mg tablet (Januvia) 100 mg PO QAM 09/26/20 [History Confirmed 03/10/22] budesonide 1 mg/2 mL suspension for nebulization 0.5 mg inhalation HS 01/27/22 [History Confirmed 03/10/22] losartan 50 mg tablet 50 mg PO QAM 01/27/22 [History Confirmed 03/10/22] amlodipine 5 mg tablet 10 mg PO QAM 03/04/22 [History Confirmed 03/10/22] duloxetine 60 mg capsule,delayed release 30 mg PO BID 03/04/22 [History Confirmed 03/10/22] levofloxacin 500 mg tablet 500 mg PO QAM 03/04/22 [History Confirmed 03/10/22] linezolid 600 mg tablet (Zyvox) 600 mg PO BID 03/04/22 [History Confirmed 03/10/22] aspirin 81 mg PO DAILY 03/05/22 [History Confirmed 03/10/22] hydrocodone 5 mg-acetaminophen 325 mg tablet 1 - 2 tab PO Q8H PRN pain, for initial therapy, max 6 tabs per day #15 tabs 03/09/22 [Rx Confirmed 03/10/22] Active Medications Acetaminophen (Acetaminophen 325 Mg Tab) 650 mg PO Q6H PRN PRN Reason: Mild/moderate pain Stop: 06/21/22 00:11 Albuterol (Albuterol Hfa 8 Gm Inhaler) 2 puffs INH QID PRN PRN Reason: Shortness Of Breath Stop: 06/21/22 00:11 Amlodipine Besylate (Amlodipine Besylate 5 Mg Tab) 10 mg PO QAM MARCELINA Stop: 06/21/22 08:59 Last Admin: 05/22/22 08:25 Dose: 10 mg Aspirin (Aspirin 81 Mg Ectab) 81 mg PO DAILY MARCELINA Stop: 06/21/22 08:59 Last Admin: 05/22/22 08:25 Dose: 81 mg Atorvastatin Calcium (Atorvastatin 20 Mg Tab) 20 mg PO QAM MARCELINA Stop: 06/21/22 08:59 Last Admin: 05/22/22 08:25 Dose: 20 mg Budesonide (Budesonide 0.5 Mg/2 Ml Vial (Pulmicort)) 0.5 mg INH HS MARCELINA Stop: 06/21/22 20:59 Dextrose (Dextrose 50% 50 Ml Syringe) 25 - 50 ml IV UD PRN; Protocol PRN Reason: Hypoglycemia Protocol Stop: 06/21/22 00:11 Duloxetine HCl (Duloxetine Hcl 30 Mg Cap) 30 mg PO BID MARCELINA Stop: 06/21/22 08:59 Last Admin: 05/22/22 08:25 Dose: Not Given Enoxaparin Sodium (Enoxaparin Inj 40 Mg/0.4 Ml Syr) 40 mg SQ Q12H MARCELINA Stop: 06/21/22 08:59 Last Admin: 05/22/22 08:25 Dose: 40 mg Glucagon (Glucagon For Inj 1 Mg Vial) 1 mg SQ UD PRN; Protocol PRN Reason: Hypoglycemia Protocol Stop: 06/21/22 00:11 Glucose (Glucose 40% Gel 15 Gm Tube) 15 - 30 gm PO UD PRN; Protocol PRN Reason: Hypoglycemia Protocol Stop: 06/21/22 00:11 Glucose (Glucose 10 Tab/Tube) 4 - 8 tab PO UD PRN; Protocol PRN Reason: Hypoglycemia Treatment Stop: 06/21/22 00:11 Insulin Aspart (Insulin Aspart Per Unit) 0 units SC ACHS MARCELINA Stop: 06/21/22 00:29 Last Admin: 05/22/22 09:33 Dose: 5 units Losartan Potassium (Losartan Potassium 50 Mg Tab) 50 mg PO QAM MARCELINA Stop: 06/21/22 08:59 Last Admin: 05/22/22 08:25 Dose: 50 mg Miscellaneous (Carbohydrates For Hypoglycemia ) 15 - 30 gm PO UD PRN PRN Reason: Hypoglycemia Protocol Stop: 06/21/22 00:11 Morphine Sulfate (Morphine Sulfate 4 Mg/Ml 1 Ml Carp\\Vial) 4 mg IV Q3H PRN PRN Reason: Severe Pain Stop: 06/05/22 00:11 Last Admin: 05/22/22 11:48 Dose: 4 mg Ondansetron HCl (Ondansetron Inj 2 Mg/Ml 2 Ml Vial) 4 mg IV Q4H PRN PRN Reason: Nausea Stop: 06/21/22 00:11 Polyethylene Glycol (Polyethylene (Miralax) 17 Gm Pack) 17 gm PO DAILY MARCELINA Stop: 06/21/22 09:59 Last Admin: 05/22/22 10:30 Dose: 17 gm PG Care Time/CCT Total # of Minutes Spent Total Time Spent with Patient: Total time spent is greater than 50% in coordination of care (as documented) at patient's floor/unit and/or counseling patient: Coding Level of Care Code 54073 Subseq Hosp Care Lvl 3 Diagnoses Proctocolitis K52.9 DMII (diabetes mellitus, type 2) E11.9 HTN (hypertension) I10 Asthma J45.909 Skin lesion L98.9 DAISY (obstructive sleep apnea) G47.33 DVT prophylaxis Z29.9
[2022-05-22] MEDS ORDERED: PIPERACILLIN/TAZOBACTAM 3.375 GM in DEXTROSE 5% 100 ML IV SCH (12:15)
[2022-05-22] MEDS ORDERED: PIPERACILLIN/TAZOBACTAM 4.5 GM in DEXTROSE 5% 100 ML IV ONE (12:30)
--- NOTE | 2022-05-22 14:29 | Ultrasound Report ---
ULTRASOUND LEFT BREAST LIMITED CLINICAL HISTORY: Palpable collection of the left breast. COMPARISON STUDY: Chest CT dated 09/27/2020. FINDINGS: Targeted real-time grayscale and color flow sonography of the left breast is performed at t he site of interest. At the site of palpable concern at the 6:00 position inferior to the nipple, the re is a thin complex nonvascular fluid collection. This measures 2.6 x 0.2 x 1.6 cm. There is hyperem ia seen around this collection on color imaging. IMPRESSION: 1. There is a thin crescentic complex fluid collection below the nipple at the site of interest as de tailed above. The sterility of this fluid cannot be assessed by imaging and clinical correlation will be required. 2. Note that this does not constitute a cancer screening examination. [facility] for full evaluation of the breast is recommended when the patient is clinically able. Dictated: 05/22/2022 1:50 PM Transcribed: 05/22/2022 2:19 PM Magali [id number] [facility] Electronically signed by: Marcio Dos Santos M.D. 05/22/2022 2:27 PM
[2022-05-22 15:45] LABS: GC (Neis gonorrhoeae) RNA Not Detected (NotDetected)
[2022-05-22] MEDS: LIDOCAINE 2% JELLY 5 ML TUBE EXT SCH ×2 (16:36→20:31)
--- NOTE | 2022-05-22 19:20 | Surgery Consultation ---
Date of Consultation May 22, 2022 Assessment & Plan (1) Breast lesion: pt is a 57 year-old female who was admitted to hospital for rectal pain, pt had left breast fluid collection for 2 months, IMP: left breast fluid collection, plan, base no abscess on left breast, no surgery indication now, conservative treatment, will F/U, Supervising Physician Co-Signing Physician Notes Agree with Sabino Collier PAC as above Gen: Obese, cooperative, NAD Chest: CTA B/L CVS: RRR Abd: Soft, Tender b/l lower, ND, +BS, -HSM Recommend Miralax 17 g BID until she starts having BM's then decrease to once daily Outpatient colonoscopy with [facility]....TAYLER Novak with [facility] will arrange. History of Present Illness Reason for Consultation: left breast fluid collection Requesting Physician: Hui Lagos MD Attending Physician: Hui Lagos MD History of Present Illness History of Present Illness Primary Care Provider: Loreta Smith 57yo F w/ hx of non-ischemic cardiomyopathy, recent breast abscess, DM, and obesity who presents with proctocolitis and rectal pain. Per patient, she recently had a breast abscess/infection. It began in late January, and she was in a hospital for a few days on IV abx before finishing a course with oral abx. The infection didn't fully resolve, and she underwent I&D with Dr. Duff on 03/05. She finished abx after that and has done well. About 3 days ago, she noted severe pain in the rectal area. There was no inciting factor at all. She denies any preceding diarrhea or constipation. In fact, she has been eating more fruits and vegetables and reports that she has 1- 2 normal BMs most days. She has not noted any blood, melena, mucus, or other concerning changes. She has not had any abdominal pain, change in appetite, bloating, nausea, vomiting, or other concerning symptoms. She has lost about 20 lbs in 2 months, but she reports she is actively dieting and eating better. She denied to myself and the ER physician any recent sexual intercourse, and denied specifically any anal intercourse. No family history of autoimmune diseases such as Crohn's disease or ulcerative colitis. I ( Sherly Dolan MD ) got a call for consult left breast fluid collection, I reviewed pt's H/P, labs U/S study with pt, pt denies any pain on left breast, no fever, no drainage, Allergies Allergy/AdvReac Type Severity Reaction Status Date / Time bee venom protein (honey bee) Allergy Severe Anaphylaxis Verified 03/17/22 11:46 ibuprofen Allergy Mild swelling Verified 03/17/22 11:46 metformin Allergy Mild Gastrointestinal Verified 03/17/22 11:46 Upset mushroom Allergy Mild swelling Verified 03/17/22 11:46 Home Medications Medication Instructions Recorded Confirmed Type albuterol sulfate 2.5 mg/3 mL 6 ml inhalation Q6 PRN Shortness 08/12/18 03/10/22 History (0.083 %) solution for nebulization Of B reath albuterol sulfate 90 mcg/actuation 2 puff inhalation QID PRN 08/12/18 03/10/22 History aerosol inhaler (Ventolin HFA) Shortness Of Breath atorvastatin 20 mg tablet 20 mg PO QAM 07/03/19 03/10/22 Histo ry sitagliptin 100 mg tablet (Januvia) 100 mg PO QAM 09/26/2002/27 History budesonide 1 mg/2 mL suspension 0.5 mg inhalation HS 01/27/22 2 History for nebulization losartan 50 mg tablet 50 mg PO QAM 01/27/22 03/10/22 History amlodipine 5 mg tablet 10 mg PO QAM 03/04/22 03/10/22 History duloxetine 60 mg capsule,delayed 30 mg PO BID 03/04/22 2 History release levofloxacin 500 mg tablet 500 mg PO QAM 03/04/22 03/10/22 Hist ory linezolid 600 mg tablet (Zyvox) 600 mg PO BID 03/04/22 03/10/22 History aspirin 81 mg PO DAILY 03/05/22 03/10/22 History hydrocodone 5 mg-acetaminophen 325 1 - 2 tab PO Q8H PRN pain, for 03/09/22 03/10/22 Rx mg tablet initial therapy, max 6 tabs per day #15 tabs Past Med/Surg History Medical History Anemia Anxiety Asthma inhalers daily/prnBite by animal not sure what bit [place] while [place] in [place] and has wound on breastDeep vein thrombosis in wrist after IV--no blood thinnersDepression Diabetes mellitus, type 2 NIDDMHistory of congestive heart failure EF 45-50%, Grade II diastolic dysfunction on 08/2020 echoHistory of pneumonia recent 09/2020HTN (hypertension) Hyperlipidemia Migraine DAISY (obstructive sleep apnea) Pulmonary hypertension 50-60 mmHg TTE 2020 per records, during hospitalization for asthma exacerbation, advised to f/u outpatient with [facility] cardio Surgical History History of bilateral tubal ligation History of section [id number] of cholecystectomy History of colonoscopy History of dilatation and curettage [id number] of nasal cauterization History of wisdom tooth extraction Hx of cataract extraction LT. Family History Other No family history of adverse response to anesthesia Social History Smoking Status: Current every day smoker Tobacco Type: Cigarettes Cigarettes Per Day: 10; Second Hand Exposure: No; Hx Alcohol Use: Yes Alcohol type: wine Hx Substance Use: Yes Last Used Substance Other:: medical marijuana Substance Use Type Other:: for "depression", "uses gummies every day" Preferred Language: Italian Communication Ability: Effective Home Fire Alarm Installer Required: No Beliefs That Will Affect Care: None marital status: Current Living Situation: Family Current Living Situation Comment: teen grandson current occupational status: employed 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 How many Children do You have: 4 Feels Safe at Home: Yes during the past year weight has: remained stable Assistive Devices: None Review of Systems Review of Systems: All systems reviewed & are unremarkable except as noted in HPI & below Allergies Allergy/AdvReac Type Severity Reaction Status Date / Time bee venom protein (honey bee) Allergy Severe Anaphylaxis Verified 03/17/22 11:46 ibuprofen Allergy Mild swelling Verified 03/17/22 11:46 metformin Allergy Mild Gastrointestinal Verified 03/17/22 11:46 Upset mushroom Allergy Mild swelling Verified 03/17/22 11:46 Home Medications Medication Instructions Recorded Confirmed Type albuterol sulfate 2.5 mg/3 mL 6 ml inhalation Q6 PRN Shortness 08/12/18 03/10/22 History (0.083 %) solution for nebulization Of Breath albuterol sulfate 90 mcg/actuation 2 puff inhalation QID PRN 08/12/18 03/10/22 History aerosol inhaler (Ventolin HFA) Shortness Of Breath atorvastatin 20 mg tablet 20 mg PO QAM 07/03/19 03/10/22 History sitagliptin 100 mg tablet (Januvia) 100 mg PO QAM 09/26/20 03/10/22 History budesonide 1 mg/2 mL suspension 0.5 mg inhalation HS 01/27/22 03/10/22 History for nebulization losartan 50 mg tablet 50 mg PO QAM 01/27/22 03/10/22 History amlodipine 5 mg tablet 10 mg PO QAM 03/04/22 03/10/22 History duloxetine 60 mg capsule,delayed 30 mg PO BID 03/04/22 03/10/22 History release levofloxacin 500 mg tablet 500 mg PO QAM 03/04/22 03/10/22 History linezolid 600 mg tablet (Zyvox) 600 mg PO BID 03/04/22 03/10/22 History aspirin 81 mg PO DAILY 03/05/22 03/10/22 History hydrocodone 5 mg-acetaminophen 325 1 - 2 tab PO Q8H PRN pain, for 03/09/22 03/10/22 Rx mg tablet initial therapy, max 6 tabs per day #15 tabs Patient History Medical History Anemia Anxiety Asthma inhalers daily/prn Bite by animal not sure what bit her while on vacation in [place] and has wound on breast Deep vein thrombosis in wrist after IV--no blood thinners Depression Diabetes mellitus, type 2 NIDDM History of congestive heart failure EF 45-50%, Grade II diastolic dysfunction on 08/2020 echo History of pneumonia recent 09/2020 HTN (hypertension) Hyperlipidemia Migraine DAISY (obstructive sleep apnea) Pulmonary hypertension 50-60 mmHg TTE 2020 per records, during hospitalization for asthma exacerbation, advised to f/u outpatient with [facility] cardio Surgical History History of bilateral tubal ligation History of section x2 History of cholecystectomy History of colonoscopy History of dilatation and curettage x2 History of nasal cauterization History of wisdom tooth extraction Hx of cataract extraction LT. Family History Other No family history of adverse response to anesthesia Social History Smoking Status: Current every day smoker Tobacco Type: Cigarettes Cigarettes Per Day: 10; Second Hand Exposure: No; Hx Alcohol Use: Yes Alcohol type: wine Hx Substance Use: Yes Last Used Substance: Days (ago) Last Used Substance Other:: medical marijuana Substance Use Type Other:: pt states she uses medical marijuana Preferred Language: Italian Communication Ability: Effective Home Fire Alarm Installer Required: No Beliefs That Will Affect Care: None marital status: Current Living Situation: Family Current Living Situation Comment: grandson current occupational status: employed 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 How many Children do You have: 2 Other Information That Helps Us Care for You: No Feels Safe at Home: No Is there a partner from a previous relationship who is making you feel unsafe now?: No Any Concerns about Your Family Situation: No Would You Like to Speak to Someone About Your Situation: No Safety Concerns: Feels Safe At This Time during the past year weight has: remained stable Assistive Devices: None Physical Exam Constitutional: WD/WN, vitals as above Eyes: PERRL, conjunctivae normal, anicteric sclerae Neck: trachea midline, no thyromegaly Respiratory: normal respiratory effort, lungs clear to auscultation Cardiovascular: RRR, no murmur, no edema Gastrointestinal (Abdomen): normal bowel sounds, soft, nontender, no hepatosplenomegaly Skin: left breast at 6 O'clock, some skin dark color, no redness no tenderness, some fluid collection, small about 1x2cm, Neurologic: patellar DTR's 2+ bilat, sensation intact Psychiatric: A+Ox3, euthymic affect Results & Data ([facility]) Vital Signs (Past 12 Hours) Vital Signs Temp Pulse Resp BP Pulse Ox O2 Del Method 05/22/22 14:57 36.6 C 81 20 110/73 93 Room Air 05/22/22 08:01 36.5 C 77 20 135/82 92 Room Air Laboratory Results Abnormal lab results 05/21/22 05/22/22 05/22/22 Range/Units 18:20 00:26 06:29 WBC 10.91 H (4.8-10.8) K/ul ESR 71 H (0-30) mm/hr Creatinine (0.6-1.2) mg/dl Glucose (70-99(Fasting)) mg/dl POC Glucose 141 H (70-99) mg/dl Hemoglobin A1c (4.5-5.6) % 05/22/22 05/22/22 05/22/22 Range/Units 06:29 06:29 08:15 WBC (4.8-10.8) K/ul ESR (0-30) mm/hr Creatinine 0.57 L (0.6-1.2) mg/dl Glucose 131 H (70-99(Fasting)) mg/dl POC Glucose 143 H (70-99) mg/dl Hemoglobin A1c 8.2 H (4.5-5.6) % 05/22/22 05/22/22 Range/Units 12:19 17:11 WBC (4.8-10.8) K/ul ESR (0-30) mm/hr Creatinine (0.6-1.2) mg/dl Glucose (70-99(Fasting)) mg/dl POC Glucose 115 H 144 H (70-99) mg/dl Hemoglobin A1c (4.5-5.6) % Diagnostic Findings ULTRASOUND LEFT BREAST LIMITED CLINICAL HISTORY: Palpable collection of the left breast. COMPARISON STUDY: Chest CT dated 09/27/2020. FINDINGS: Targeted real-time grayscale and color flow sonography of the left breast is performed at the site of interest. At the site of palpable concern at the 6:00 position inferior to the nipple, there is a thin complex nonvascular fluid collection. This measures 2.6 x 0.2 x 1.6 cm. There is hyperemia seen around this collection on color imaging. IMPRESSION: 1. There is a thin crescentic complex fluid collection below the nipple at the site of interest as detailed above. The sterility of this fluid cannot be assessed by imaging and clinical correlation will be required. 2. Note that this does not constitute a cancer screening examination. [facility] for full evaluation of the breast is recommended when the patient is clinically able.
[2022-05-22] MEDS: POLYETHYLENE (MIRALAX) 17 GM PACK PO SCH (20:14)
[2022-05-22] MEDS: PIPERACILLIN/TAZOBACTAM 4.5 GM in DEXTROSE 5% 100 ML IV SCH (20:14)
[2022-05-22] MEDS ORDERED: BUDESONIDE 0.5 MG/2 ML VIAL (PULMICORT) INH SCH (21:00)
[2022-05-23] MEDS: MoRPHine SULFATE 4 MG/ML 1 ML CARP\\VIAL IV PRN ×2 (00:16→03:50)
[2022-05-23] MEDS: PIPERACILLIN/TAZOBACTAM 4.5 GM in DEXTROSE 5% 100 ML IV SCH ×3 (03:50→20:11)
[2022-05-23 07:25] LABS: Basophils # (auto) 0.05 K/uL (0-0.2); Basophils % (auto) 0.5 %; Eosinophils # (auto) 0.15 K/uL (0-0.50); Eosinophils % (auto) 1.4 %; Hematocrit (blood only) 38.1 % (34.1-44.9); Hemoglobin 12.7 g/dl (12.0-16.0); Immature Granulocytes # (auto) 0.04 K/uL (0.00-0.02); Immature Granulocytes % (auto) 0.4 %; Lymphocytes # (auto) 2.49 K/uL (1.2-3.4); Lymphocytes % (auto) 23.7 %; Mean Corpuscular Hemoglobin 28.3 pg (25.0-34.0); Mean Corpuscular Hgb Conc 33.3 g/dL (32.0-36.0); Mean Platelet Volume 10.5 fL (9.4-12.3); Monocytes # (auto) 0.88 K/uL (0.24-0.82); Monocytes % (auto) 8.4 %; Neutrophils # (auto) 6.88 K/uL (1.4-6.5); Neutrophils % (auto) 65.6 %; Platelet Count 326 K/uL (130-400); RDW Coefficient of Variation 13.5 % (11.5-14.5); RDW Standard Deviation 42.2 fL (36.4-46.3); Red Blood Count 4.48 M/uL (3.93-5.22); White Blood Count 10.49 K/ul (4.8-10.8)
[2022-05-23 07:43] LABS: BUN Creatinine Ratio 17.6 (10-20); C Reactive Protein 3.04 mg/dl (0-0.5); Calcium 9.3 mg/dl (8.5-10.1); Creatinine Clr Calc Pharmacy 124.3 ml/min; Est GFR (Non-African American) 90.6 ml/min; Potassium 4.1 mmol/L (3.5-5.1)
[2022-05-23] MEDS ORDERED: ALBUTEROL 0.083% NEBU SOLN 3 ML VIAL INH PRN (07:59)
[2022-05-23] MEDS ORDERED: Nursing to Pharmacy Communication SCH (08:00)
[2022-05-23] MEDS: BUDESONIDE 0.5 MG/2 ML VIAL (PULMICORT) INH SCH ×2 (09:42→20:36)
[2022-05-23] MEDS: ASPIRIN 81 MG ECTAB PO SCH (10:10)
[2022-05-23] MEDS: DULoxetine HCL 30 MG CAP PO SCH ×2 (10:10→20:12)
[2022-05-23] MEDS: LOSARTAN POTASSIUM 50 MG TAB PO SCH (10:10)
[2022-05-23] MEDS: amLODIPine BESYLATE 5 MG TAB PO SCH (10:10)
[2022-05-23] MEDS: ATORVASTATIN 20 MG TAB PO SCH (10:10)
[2022-05-23] MEDS: ENOXAPARIN INJ 40 MG/0.4 ML SYR SQ SCH ×2 (10:12→20:11)
[2022-05-23] MEDS: INSULIN ASPART PER UNIT SC SCH ×4 (10:15→20:48)
[2022-05-23] MEDS: POLYETHYLENE (MIRALAX) 17 GM PACK PO SCH ×2 (10:15→20:13)
--- NOTE | 2022-05-23 11:05 | Hospitalist Progress Note ---
Date of Service May 23, 2022 Assessment & Plan (1) Proctocolitis: Plan: CT a/p showed non-specific, mild proctocolitis. ALSO showed "Wall thickening with luminal narrowing is also noted involving the mid aspect of the descending colon" and inguinal lymphadenopathy up to 3.1x1.4 cm. Possible IBD (Crohn's) given several areas of irritation and a new stricture, though her constellation of symptoms does not otherwise appear consistent with this. Alternatively, STI such as lymphogranuloma venereum could be possible as well. - DDX: Stercoral vs. infective, vs. other as above- appreciate GI consultation - She reports pain and burning with defecation and denies a history of hemorrhoids, but from her description this sounds consistent with hemorrhoids - however non-specific colitis with lymphadenopathy will place back on Zosyn- continue to trend CBC and fever curve - sexual history as per HPI - Chlamydia / GC PCR ordered -> If positive, would obviously treat. - GI consult - appreciated-recommends treating constipationa nd outpt f/u with [facility] for colonoscopy - Pain control 05/23- improvement in pain and downtrend of CRP, WBC, NLR, PCT <0.05. Continue Zosyn for today for 72 hours. -continue to work on bowel regimen -add on sennakot 2 tabs daily -Given excessive sedation, will discontinue IV morphine and convert to oral Percocet as needed (2) DMII (diabetes mellitus, type 2): Plan: A1c was 10.2% in 01/2022. - Hold home meds - Sliding scale insulin - Repeat A1c - follow up with PCP - HGB A1C 8.2% 05/23- better controlled (3) HTN (hypertension): Plan: BP controlled - Continue home amlodipine, losartan (4) Asthma: Plan: - Continue home meds - Albuterol PRN 05/23- with wheezing this morning and cough. improved with albuterol, will also change her budesonide to BID (5) Skin lesion: Plan: She notes that she has been having some pain under her breasts and left breast with some drainage noted last week - she has some skin excoriation there, but left breast with palpable superficial hardened area from which was draining- this was cultured in February as well as I&D and was negative- -Obtained ultrasound of the left breast eval for any abscess, although not warm/red/or with current drainage-small fluid collection -Appreciate surgery consultation-no surgery needed at this time, follow-up as an outpatient - other lesions are small raised, red and other is scabbed over, without itching or pain and not fluid containing 05/23 improvement in her arm lesions as they are mostly gone ? etiology, left breast can follow up with Dr. Duff office for evaluation/possible subcutaneous drainage (6) DAISY (obstructive sleep apnea): Plan: HX of as well as non-tolerant to BIPAP - no acute needs - in house BiPAP if needed 05/23 remains with daytime somnolence and wheezing in the morning- declines BiPAP -Discontinue IV morphine as above (7) DVT prophylaxis: Plan: High risk given prior DVT. - Lovenox 40 mg SQ Q12h -> Higher dose for obesity Disposition-possible discharge home tomorrow if continues to improve, will discharge home on p.o. Augmentin. Also needs to be having bowel movements prior to discharge Admission and Anticipated Discharge Date Admission Date: May 21, 2022 Supervising Physician Co-Signing Physician Notes CARPENTER RAILCAR Supervision note: I have not personally seen or examined the patient but discussed and verified the villanueva points of the history and physical along with the plan with TAYLER Real with the following exceptions and/or additions: Changes made to A/P as above Subjective Patient HD #2 from admission for rectal pain and constipation. Noted to have non-specific colitis and area on rectum. She was given IV ABX in the EMD and none overnight following admission. Continuation of antibiotics in the form of Zosyn yesterday with improvement in WBC count and decrease in her NLR. She fells her rectal pain is better but still present. She continues to have daytime somnolence and does not want to try CPAP/BiPAP. She remains with rectal pain and burning with movement and defecation, she noted some blood with her bowel movement, but denies any history of hemorrhoids. She states that she felt a soft lump on the side wall of her rectum and as this hurt with defecation she was trying not to go to the bathroom. She does not note any fevers at home or other abdominal pain. She does note that she has had some skin lesions come up on her arms and chest, these are decreased from yesterday. She can follow up with surgery as outpatient for following of her left breast fluid collection. Review of Systems Review of Systems: REVIEW OF SYSTEMS: Constitutional: No fever, sweats or chills Eyes: No diplopia, no worsening or blurred vision ENT: normal hearing, no trouble swallowing Respiratory: No cough, sputum, dyspnea at rest or on exertion Cardiovascular: No chest pain, tightness or palpitations Abdomen: (+) constipation, No pain, nausea, vomiting, Musculoskeletal: No joint pain, calf pain, swelling Neurologic: No weakness, numbness/tingling, or balance problems Psychiatric: No anxiety or depression Skin: (+) small irritation under breasts, and lesion arm arms Physical Exam Physical Exam: PHYSICAL EXAM: General: awake, alert, no apparent distress Head: Normocephalic, atraumatic ENT: PERRL, EOMI, no pharyngeal exudate, mucous membranes moist Neuro: AAO x 3, speech clear and appropriate, strength intact bilaterally 5/5, sensation intact and equal all extremities and dermatomes, no pronator drift Chest: equal rise and fall of the chest, no accessory muscle use, no heaves or thrills, Clear to auscultation, on room air, Cardiac: Regulars S1/S2, skin warm dry, cap refill <3 seconds, peripheral pulses +2 no JVD, no murmur, no edema GI: NABS x 4 quadrants, soft, nontender to palpation, no rebound, guarding or tenderness, recatal "burning" and pain, body habitus makes it hard for visual exam : Spontaneously voiding, no pain, no CVA tenderness, Extremities: Normal inspection, no peripheral edema or erythema, calfs nontender to palpation Psych: Normal mood and affect Skin: small pinpoint lesions on arms/forearms various stage just redness vs. scabbed over, not fluid filled or draining on exam and non tender Results & Data Results & Data ([facility]) Vital Signs (Past 12 Hours) Vital Signs Temp Pulse Resp BP BP Pulse Ox O2 Del Method 05/23/22 09:42 74 18 94 Room Air 05/23/22 07:35 86 20 96 Room Air 05/23/22 05:56 36.6 C 78 18 169/87 H 173/88 H 91 Room Air Laboratory Results Abnormal lab results 05/22/22 05/22/22 05/22/22 Range/Units 12:19 17:11 20:48 Neut # (Auto) (1.4-6.5) K/uL [place] # (Auto) (0.24-0.82) K/uL Immature Gran # (Auto) (0.00-0.02) K/uL Sodium (136-145) mmol/L Glucose (70-99(Fasting)) mg/dl POC Glucose 115 H 144 H 130 H (70-99) mg/dl C-Reactive Protein (0-0.5) mg/dl 05/23/22 05/23/22 05/23/22 Range/Units 06:56 06:56 08:25 Neut # (Auto) 6.88 H (1.4-6.5) K/uL [place] # (Auto) 0.88 H (0.24-0.82) K/uL Immature Gran # (Auto) 0.04 H (0.00-0.02) K/uL Sodium 135 L (136-145) mmol/L Glucose 152 H (70-99(Fasting)) mg/dl POC Glucose 169 H (70-99) mg/dl C-Reactive Protein 3.04 H (0-0.5) mg/dl Diagnostic Findings Breast Ultrasound 05/22/22 11:51 ULTRASOUND LEFT BREAST LIMITED CLINICAL HISTORY: Palpable collection of the left breast. COMPARISON STUDY: Chest CT dated 09/27/2020. FINDINGS: Targeted real-time grayscale and color flow sonography of the left breast is performed at the site of interest. At the site of palpable concern at the 6:00 position inferior to the nipple, there is a thin complex nonvascular fluid collection. This measures 2.6 x 0.2 x 1.6 cm. There is hyperemia seen around this collection on color imaging. IMPRESSION: 1. There is a thin crescentic complex fluid collection below the nipple at the site of interest as detailed above. The sterility of this fluid cannot be assessed by imaging and clinical correlation will be required. 2. Note that this does not constitute a cancer screening examination. [facility] at [facility] for full evaluation of the breast is recommended when the patient is clinically able. Dictated: 05/22/2022 1:50 PM Transcribed: 05/22/2022 2:19 PM Magali [id number] [facility] Electronically signed by: Marcio Dos Santos M.D. 05/22/2022 2:27 PM Medications Administered Acetaminophen (Acetaminophen 325 Mg Tab) 650 mg PO Q6H PRN PRN Reason: Mild/moderate pain Stop: 06/21/22 00:11 Last Admin: 05/22/22 20:31 Dose: 650 mg Documented By: RACHEL Albuterol (Albuterol 0.083% Nebu Soln 3 Ml Vial) 2.5 mg INH Q4H PRN PRN Reason: SOB/ WHEEZING Stop: 06/22/22 07:58 Last Admin: 05/23/22 09:42 Dose: 2.5 mg Documented By: CODI Amlodipine Besylate (Amlodipine Besylate 5 Mg Tab) 10 mg PO QAM [facility] Stop: 06/21/22 08:59 Last Admin: 05/23/22 10:10 Dose: 10 mg Documented By: Admin: 05/22/22 08:25 Dose: 10 mg Documented By: TONG Aspirin (Aspirin 81 Mg Ectab) 81 mg PO DAILY [facility] Stop: 06/21/22 08:59 Last Admin: 05/23/22 10:10 Dose: 81 mg Documented By: Admin: 05/22/22 08:25 Dose: 81 mg Documented By: TONG Atorvastatin Calcium (Atorvastatin 20 Mg Tab) 20 mg PO QAM [facility] Stop: 06/21/22 08:59 Last Admin: 05/23/22 10:10 Dose: 20 mg Documented By: Admin: 05/22/22 08:25 Dose: 20 mg Documented By: TONG Budesonide (Budesonide 0.5 Mg/2 Ml Vial (Pulmicort)) 0.5 mg INH BIDR MARCELINA Stop: 06/22/22 08:59 Last Admin: 05/23/22 09:42 Dose: 0.5 mg Documented By: CODI Duloxetine HCl (Duloxetine Hcl 30 Mg Cap) 30 mg PO BID MARCELINA Stop: 06/21/22 08:59 Last Admin: 05/23/22 10:10 Dose: 30 mg Documented By: Admin: 05/22/22 20:14 Dose: 30 mg Documented By: Admin: 05/22/22 08:25 Dose: Not Given Documented By: TONG Enoxaparin Sodium (Enoxaparin Inj 40 Mg/0.4 Ml Syr) 40 mg SQ Q12H MARCELINA Stop: 06/21/22 08:59 Last Admin: 05/23/22 10:12 Dose: 40 mg Documented By: Admin: 05/22/22 20:15 Dose: 40 mg Documented By: Admin: 05/22/22 08:25 Dose: 40 mg Documented By: TONG Piperacillin Sod/Tazobactam (Sod 4.5 gm/ Dextrose) 120 mls @ 30 mls/hr IV Q8H MARCELINA; Protocol Stop: 06/01/22 19:29 Last Infusion: 05/23/22 10:43 Dose: 0 mls/hr Documented By: Admin: 05/23/22 03:50 Dose: 30 mls/hr Documented By: Infusion: 05/23/22 00:16 Dose: 0 mls/hr Documented By: Admin: 05/22/22 20:14 Dose: 30 mls/hr Documented By: RACHEL Insulin Aspart (Insulin Aspart Per Unit) 0 units SC ACHS MARCELINA Stop: 06/21/22 00:29 Last Admin: 05/23/22 10:15 Dose: 1 units Documented By: MARYANA Co-signed By: LISA Admin: 05/22/22 20:49 Dose: Not Given Documented By: Admin: 05/22/22 18:32 Dose: 3 units Documented By: TONG Co-signed By: TONYA Admin: 05/22/22 14:24 Dose: Not Given Documented By: Admin: 05/22/22 09:33 Dose: 5 units Documented By: TONG Co-signed By: TONYA Admin: 05/22/22 01:23 Dose: Not Given Documented By: LUCRETIA Lidocaine HCl (Lidocaine 2% Jelly 5 Ml Tube) 1 ml EXT TID MARCELINA Stop: 06/21/22 13:59 Last Admin: 05/22/22 20:31 Dose: 1 ml Documented By: Admin: 05/22/22 16:36 Dose: Not Given Documented By: TONG Losartan Potassium (Losartan Potassium 50 Mg Tab) 50 mg PO QAM MARCELINA Stop: 06/21/22 08:59 Last Admin: 05/23/22 10:10 Dose: 50 mg Documented By: Admin: 05/22/22 08:25 Dose: 50 mg Documented By: TONG Morphine Sulfate (Morphine Sulfate 4 Mg/Ml 1 Ml Carp\\Vial) 4 mg IV Q3H PRN PRN Reason: Severe Pain Stop: 06/05/22 00:11 Last Admin: 05/23/22 03:50 Dose: 4 mg Documented By: Admin: 05/23/22 00:16 Dose: 4 mg Documented By: Admin: 05/22/22 18:37 Dose: 4 mg Documented By: Admin: 05/22/22 15:21 Dose: 4 mg Documented By: Admin: 05/22/22 11:48 Dose: 4 mg Documented By: Admin: 05/22/22 06:37 Dose: 4 mg Documented By: Admin: 05/22/22 01:22 Dose: 4 mg Documented By: LUCRETIA Polyethylene Glycol (Polyethylene (Miralax) 17 Gm Pack) 17 gm PO BID MARCELINA Stop: 06/21/22 20:59 Last Admin: 05/23/22 10:15 Dose: 17 gm Documented By: Admin: 05/22/22 20:14 Dose: 17 gm Documented By: RACHEL Discontinued Medications Budesonide (Budesonide 0.5 Mg/2 Ml Vial (Pulmicort)) 0.5 mg INH HS MARCELINA Stop: 06/21/22 20:59 Last Admin: 05/23/22 04:01 Dose: Not Given Documented By: LILI Sodium Chloride (Nss 1000ml) 1,000 mls @ 999 mls/hr IV .Q1H1M STA Stop: 05/21/22 19:45 Last Infusion: 05/21/22 20:25 Dose: 0 mls/hr Documented By: Admin: 05/21/22 18:54 Dose: 999 mls/hr Documented By: SHANNON Piperacillin Sod/Tazobactam Sod (Zosyn) 4.5 gm in 120 mls @ 240 mls/hr IV NOW ONE Stop: 05/21/22 19:14 Last Infusion: 05/21/22 20:00 Dose: 0 mls/hr Documented By: Admin: 05/21/22 18:53 Dose: 240 mls/hr Documented By: SHANNON Sodium Chloride (Nss 1000ml) 1,000 mls @ 999 mls/hr IV .Q1H1M ONE Stop: 05/21/22 20:05 Last Infusion: 05/21/22 21:37 Dose: 0 mls/hr Documented By: Admin: 05/21/22 20:25 Dose: 999 mls/hr Documented By: QGV Piperacillin Sod/Tazobactam (Sod 3.375 gm/ Dextrose) 115 mls @ 28.75 mls/hr IV Q8H MARCELINA; Protocol Stop: 06/01/22 12:14 Last Admin: 05/22/22 14:25 Dose: Not Given Documented By: TONG Piperacillin Sod/Tazobactam (Sod 4.5 gm/ Dextrose) 120 mls @ 200 mls/hr IV NOW ONE; Protocol Stop: 05/22/22 13:05 Last Infusion: 05/22/22 15:02 Dose: 0 mls/hr Documented By: Admin: 05/22/22 14:26 Dose: 200 mls/hr Documented By: TONG Ioversol (Optiray 300 500ml) 112 ml IV ONCE ONE Stop: 05/21/22 19:30 Last Admin: 05/21/22 19:30 Dose: 112 ml Documented By: GUMARO Morphine Sulfate (Morphine Sulfate 4 Mg/Ml 1 Ml Carp\\Vial) 4 mg IV NOW STA Stop: 05/21/22 19:06 Last Admin: 05/21/22 19:19 Dose: 4 mg Documented By: QGV Morphine Sulfate (Morphine Sulfate 4 Mg/Ml 1 Ml Carp\\Vial) 4 mg IV Q30M PRN PRN Reason: Pain Stop: 06/04/22 19:04 Last Admin: 05/21/22 21:55 Dose: 4 mg Documented By: QGV Ondansetron HCl (Ondansetron Inj 2 Mg/Ml 2 Ml Vial) 4 mg IV NOW STA Stop: 05/21/22 19:06 Last Admin: 05/21/22 19:19 Dose: 4 mg Documented By: QGV Polyethylene Glycol (Polyethylene (Miralax) 17 Gm Pack) 17 gm PO DAILY MARCELINA Stop: 06/21/22 09:59 Last Admin: 05/22/22 10:30 Dose: 17 gm Documented By: TONG PG Care Time/CCT Total # of Minutes Spent Total Time Spent with Patient: Total time spent is greater than 50% in coordination of care (as documented) at patient's floor/unit and/or counseling patient: Coding Level of Care Code 56559 Subseq Hosp Care Lvl 3 Diagnoses Proctocolitis K52.9 DMII (diabetes mellitus, type 2) E11.9 HTN (hypertension) I10 Asthma J45.909 Skin lesion L98.9 DAISY (obstructive sleep apnea) G47.33 DVT prophylaxis Z29.9
--- NOTE | 2022-05-23 11:49 | Surgery Progress Note ---
Date of Service May 23, 2022 Assessment & Plan (1) Breast lesion: Plan: pt is a 57 year-old female who was admitted to hospital for rectal pain, pt had left breast fluid collection for 2 months, IMP: left breast fluid collection, plan, base no abscess on left breast, no surgery indication now, conservative treatment, will F/U, 05/23/2022 11: 47AM no change on left breast fluid collection, no infection signs pt needs to F/U breast surgeon out patient sitting, sign off today, please call with question, thanks, Admission and Anticipated Discharge Date Admission Date: May 21, 2022 Supervising Physician Co-Signing Physician Notes TELEVISION MECH[employer]IC Supervision note: I have not personally seen or examined the patient and discussed and verified the villanueva points of the history and physical along with the plan with TAYLER Real with the following exceptions and/or additions: none Subjective Patient HD #2 from admission for rectal pain and constipation. Noted to have non-specific colitis and area on rectum. She was given IV ABX in the EMD and non overnight following admission. Continuation of antibiotics in the form of Zosyn yesterday with imrpovment in WBC count and decrease in her NLR. She fells her rectal pain is better but still present. She continues to have daytime somnulence and does not want to try CPAP/BiPAP. She remains with rectal pain and burning with movement and defecation, she noted some blood with her bowel movement, but denies any history of hemorrhoids. She states that she felt a soft lump on the side wall of her rectum and as this hurt with defecation she was trying not to go to the bathroom. She does not note any fevers at home or other abdominal pain. She does note that she has had some skin lesions come up on her arms and chest, these are decreased from yesterday. She can follow up with surgery as outpatient for following of her left breast fluid collection. 05/23/2022 11:45AM, Dr. Dolan F/U left breast fluid collection, pt is doing fine, no pain on left breast, Physical Exam Constitutional: WD/WN, vitals as above Eyes: PERRL, conjunctivae normal, anicteric sclerae Neck: trachea midline, no thyromegaly Respiratory: normal respiratory effort, lungs clear to auscultation Cardiovascular: RRR, no murmur, no edema Gastrointestinal (Abdomen): normal bowel sounds, soft, nontender, no hepatosplenomegaly Skin: no change on left breast fluid collection, no redness, no tenderness, Neurologic: patellar DTR's 2+ bilat, sensation intact Psychiatric: A+Ox3, euthymic affect Results & Data ([facility]) Vital Signs (Past 12 Hours) Vital Signs Temp Pulse Resp BP BP Pulse Ox O2 Del Method 05/23/22 09:42 74 18 94 Room Air 05/23/22 07:35 86 20 96 Room Air 05/23/22 05:56 36.6 C 78 18 169/87 H 173/88 H 91 Room Air Laboratory Results Abnormal lab results 05/22/22 05/22/22 05/22/22 Range/Units 12:19 17:11 20:48 Neut # (Auto) (1.4-6.5) K/uL [place] # (Auto) (0.24-0.82) K/uL Immature Gran # (Auto) (0.00-0.02) K/uL Sodium (136-145) mmol/L Glucose (70-99(Fasting)) mg/dl POC Glucose 115 H 144 H 130 H (70-99) mg/dl C-Reactive Protein (0-0.5) mg/dl 05/23/22 05/23/22 05/23/22 Range/Units 06:56 06:56 08:25 Neut # (Auto) 6.88 H (1.4-6.5) K/uL [place] # (Auto) 0.88 H (0.24-0.82) K/uL Immature Gran # (Auto) 0.04 H (0.00-0.02) K/uL Sodium 135 L (136-145) mmol/L Glucose 152 H (70-99(Fasting)) mg/dl POC Glucose 169 H (70-99) mg/dl C-Reactive Protein 3.04 H (0-0.5) mg/dl
[2022-05-23] MEDS: LIDOCAINE 2% JELLY 5 ML TUBE EXT SCH ×3 (16:10→20:13)
[2022-05-23] MEDS: DOCUSATE SODIUM/SENNA 50/8.6MG TAB PO SCH (17:49)
[2022-05-23] MEDS: oxyCODONE/ACETAMINOPHEN 5mg/325mg TAB PO PRN (20:47)
[2022-05-24] MEDS: PIPERACILLIN/TAZOBACTAM 4.5 GM in DEXTROSE 5% 100 ML IV SCH ×3 (03:16→20:22)
[2022-05-24 07:28] LABS: Basophils # (auto) 0.05 K/uL (0-0.2); Basophils % (auto) 0.4 %; Eosinophils # (auto) 0.15 K/uL (0-0.50); Eosinophils % (auto) 1.2 %; Hematocrit (blood only) 37.5 % (34.1-44.9); Hemoglobin 12.8 g/dl (12.0-16.0); Immature Granulocytes # (auto) 0.04 K/uL (0.00-0.02); Immature Granulocytes % (auto) 0.3 %; Lymphocytes # (auto) 2.25 K/uL (1.2-3.4); Lymphocytes % (auto) 18.4 %; Mean Corpuscular Hemoglobin 28.6 pg (25.0-34.0); Mean Corpuscular Hgb Conc 34.1 g/dL (32.0-36.0); Mean Corpuscular Volume 83.7 fL (80.0-100.0); Mean Platelet Volume 10.4 fL (9.4-12.3); Monocytes # (auto) 0.98 K/uL (0.24-0.82); Neutrophils # (auto) 8.77 K/uL (1.4-6.5); Neutrophils % (auto) 71.7 %; Platelet Count 322 K/uL (130-400); RDW Coefficient of Variation 13.2 % (11.5-14.5); RDW Standard Deviation 39.9 fL (36.4-46.3); Red Blood Count 4.48 M/uL (3.93-5.22); White Blood Count 12.24 K/ul (4.8-10.8)
[2022-05-24] MEDS: BUDESONIDE 0.5 MG/2 ML VIAL (PULMICORT) INH SCH ×2 (07:30→20:14)
[2022-05-24 08:00] LABS: Calcium 9.1 mg/dl (8.5-10.1); Potassium 3.6 mmol/L (3.5-5.1)
[2022-05-24 08:05] LABS: BUN Creatinine Ratio 11.7 (10-20); Creatinine Clr Calc Pharmacy 153.3 ml/min; Est GFR (African American) 118.1 ml/min; Est GFR (Non-African American) 101.9 ml/min
[2022-05-24] MEDS: LOSARTAN POTASSIUM 50 MG TAB PO SCH (09:10)
[2022-05-24] MEDS: ATORVASTATIN 20 MG TAB PO SCH (09:10)
[2022-05-24] MEDS: DULoxetine HCL 30 MG CAP PO SCH (09:10)
[2022-05-24] MEDS: DOCUSATE SODIUM/SENNA 50/8.6MG TAB PO SCH (09:10)
[2022-05-24] MEDS: amLODIPine BESYLATE 5 MG TAB PO SCH (09:10)
[2022-05-24] MEDS: ASPIRIN 81 MG ECTAB PO SCH (09:10)
[2022-05-24] MEDS: ENOXAPARIN INJ 40 MG/0.4 ML SYR SQ SCH ×2 (09:11→21:22)
[2022-05-24] MEDS: POLYETHYLENE (MIRALAX) 17 GM PACK PO SCH ×2 (09:12→21:15)
[2022-05-24] MEDS: INSULIN ASPART PER UNIT SC SCH ×4 (09:16→21:18)
[2022-05-24] MEDS ORDERED: bisacodyL 10 MG SUPP PR STA (09:42)
[2022-05-24] MEDS: LIDOCAINE 2% JELLY 5 ML TUBE EXT SCH ×3 (10:10→21:15)
--- NOTE | 2022-05-24 11:41 | XRay Report ---
KUB CLINICAL HISTORY: Vomiting. Constipation. Proctocolitis. FINDINGS: 2 AP supine abdominal radiographs are correlated with abdominal CT dated 05/21/2022. Cholecy stectomy clips are noted in the right upper quadrant. The hepatic silhouette appears enlarged. There is a nonobstructed abdominal bowel gas pattern. No evidence of intraperitoneal free air is seen on th maury supine images. Only mild fecal retention is present in the colon. There are no abnormal abdominal calcifications. Phleboliths are seen in the pelvis. The bony structures appear intact. IMPRESSION: No acute abnormality is identified. Electronically signed by: Marcio Dos Santos M.D. 05/24/2022 11:40 AM
--- NOTE | 2022-05-24 16:55 | Hospitalist Progress Note ---
Date of Service May 24, 2022 Assessment & Plan (1) Proctocolitis: Plan: CT a/p showed non-specific, mild proctocolitis. ALSO showed "Wall thickening with luminal narrowing is also noted involving the mid aspect of the descending colon" and bilateral inguinal lymphadenopathy up to 3.1x1.4 cm on the right. Possible IBD (Crohn's) given several areas of irritation and a new stricture, though her constellation of symptoms does not otherwise appear consistent with this. Alternatively, STI such as lymphogranuloma venereum could be possible as well. - DDX: Stercoral vs. infective- appreciate GI consultation-recommends colonoscopy as an outpatient - She reports pain and burning with defecation and denies a history of hemorrhoids -GC and Chlamydia negative Sed rate quite high at 71 and remains high at 70, CRP somewhat elevated at 3, procalcitonin negative Leukocytosis was improving but is back up again today. No fevers. Pain is improved now with moving bowels on 05/24 -Continue IV antibiotics in the form of Zosyn and then will convert to Augmentin to finish out a 10-day course -Recommend colonoscopy as an outpatient in 6 weeks to rule out underlying colon mass/lesion or IBD -Follow CBC, CMP, ESR, CRP in the morning -Continue bowel regimen-added on bisacodyl suppository, continue Senokot 2 tabs daily, and MiraLAX twice a day -Continue pain control with Percocet as needed -Recommend repeat imaging to assess improvement of the inguinal lymphadenopathy either with ultrasound or CT scan in 1 month and possible FNA of the enlarged lymph nodes if persist -Given borderline microcytosis and borderline anemia, check iron studies in the morning given concern for IBD or colon lesion (2) DMII (diabetes mellitus, type 2): Plan: A1c was 10.2% in 01/2022 and now is down to 8.2% With some occasional hyperglycemia here - Hold home Januvia - Sliding scale insulin-tighten down carb ratio and correction factor slightly today -Would benefit from GLP-1 agonist as an outpatient for diabetes and weight loss (3) HTN (hypertension): Plan: BP controlled at the elevated - Continue home amlodipine, losartan (4) Asthma: Plan: No acute issues, no wheezing on exam -Continue albuterol as needed and budesonide nebs BID (5) Skin lesion: Plan: She notes that she has been having some pain under her breasts and left breast with some drainage noted last week -Had incision and drainage of left breast cyst in February as well as I&D and culture was negative-was treated with antibiotics orally -Obtained ultrasound of the left breast eval for any abscess, although not wa rm/red/or with current drainage-small fluid collection -Appreciate surgery consultation-no surgery needed at this time, follow-up as an outpatient Also with Hali intertrigo of the breast as below (6) DAISY (obstructive sleep apnea): Plan: HX of as well as non-tolerant to BIPAP - no acute needs - in house BiPAP if needed - remains with daytime somnolence and wheezing in the morning- declines BiPAP -Discontinued IV morphine as above and daytime somnolence has improved (7) Candidal intertrigo: Plan: Start nystatin powder underneath breast Consult wound care for open/cracked skin under breasts (8) DVT prophylaxis: Plan: High risk given prior DVT. - Lovenox 40 mg SQ Q12h -> Higher dose for obesity Disposition-possible discharge home tomorrow if leukocytosis improves, continues to move her bowels. Will discharge on p.o. Augmentin Admission and Anticipated Discharge Date Admission Date: May 24, 2022 Subjective Pt had a large BM today and feels better. Still some pain in her bottom but is improved. No blood in her stool. Is having pain under her breasts. No shortness of breath or chest pain. Review of Systems Review of Systems: All systems reviewed & are unremarkable except as noted in HPI & below Physical Exam Constitutional: WD/WN, vitals as above Eyes: + anicteric sclerae Neck: trachea midline, no thyromegaly Respiratory: normal respiratory effort, lungs clear to auscultation Cardiovascular: RRR, no murmur, no edema Chest (Breasts): Chest: + abnormal inspection of chest (Left lateral breast incisional scar well-healed) Gastrointestinal (Abdomen): normal bowel sounds, soft, nontender, no hepatosplenomegaly Musculoskeletal: Extremities: extremities normal to inspection; no cyanosis and no clubbing Skin: no rashes, warm and dry + erythema (Erythema and cracked skin under her breasts bilaterally) Neurologic: moves all extremities and awake; no focal motor deficits Psychiatric: A+Ox3, euthymic affect Results & Data Results & Data ([facility]) Vital Signs (Past 12 Hours) Vital Signs Temp Pulse Pulse Resp BP Pulse Ox O2 Del Method 05/24/22 16:00 36.7 C 80 20 154/83 H 92 Room Air 05/24/22 14:20 Room Air 05/24/22 07:30 36.3 C L 89 18 168/81 H 94 Room Air 05/24/22 07:30 92 H 18 96 Room Air Laboratory Results 05/24/22 05/24/22 05/24/22 Range/Units 17:30 12:30 08:29 WBC (4.8-10.8) K/ul RBC (3.93-5.22) M/uL Hgb (12.0-16.0) g/dl Hct (34.1-44.9) % MCV (80.0-100.0) fL MCH (25.0-34.0) pg MCHC (32.0-36.0) g/dL RDW Std Deviation (36.4-46.3) fL RDW Coeff of Anup (11.5-14.5) % Plt Count (130-400) K/uL MPV (9.4-12.3) fL Immature Gran % (Auto) % Neut % (Auto) % Lymph % (Auto) % Lea % (Auto) % Eos % (Auto) % Baso % (Auto) % Neut # (Auto) (1.4-6.5) K/uL Lymph # (Auto) (1.2-3.4) K/uL Lea # (Auto) (0.24-0.82) K/uL Eos # (Auto) (0-0.50) K/uL Baso # (Auto) (0-0.2) K/uL Immature Gran # (Auto) (0.00-0.02) K/uL ESR (0-30) mm/hr Sodium (136-145) mmol/L Potassium (3.5-5.1) mmol/L Chloride (98-107) mmol/L Carbon Dioxide (21-32) mmol/L Anion Gap (3-11) BUN (6-23) mg/dl Creatinine (0.6-1.2) mg/dl Est Cr Clr Drug Dosing ml/min Est GFR ( Amer) ml/min Est GFR (Non-Af Amer) ml/min BUN/Creatinine Ratio (10-20) Glucose (70-99(Fasting)) mg/dl POC Glucose 132 H 116 H 220 H (70-99) mg/dl Calcium (8.5-10.1) mg/dl 05/24/22 05/24/22 05/24/22 Range/Units 07:00 07:00 07:00 WBC 12.24 H (4.8-10.8) K/ul RBC 4.48 (3.93-5.22) M/uL Hgb 12.8 (12.0-16.0) g/dl Hct 37.5 (34.1-44.9) % MCV 83.7 (80.0-100.0) fL MCH 28.6 (25.0-34.0) pg MCHC 34.1 (32.0-36.0) g/dL RDW Std Deviation 39.9 (36.4-46.3) fL RDW Coeff of Anup 13.2 (11.5-14.5) % Plt Count 322 (130-400) K/uL MPV 10.4 (9.4-12.3) fL Immature Gran % (Auto) 0.3 % Neut % (Auto) 71.7 % Lymph % (Auto) 18.4 % Lea % (Auto) 8.0 % Eos % (Auto) 1.2 % Baso % (Auto) 0.4 % Neut # (Auto) 8.77 H (1.4-6.5) K/uL Lymph # (Auto) 2.25 (1.2-3.4) K/uL Lea # (Auto) 0.98 H (0.24-0.82) K/uL Eos # (Auto) 0.15 (0-0.50) K/uL Baso # (Auto) 0.05 (0-0.2) K/uL Immature Gran # (Auto) 0.04 H (0.00-0.02) K/uL ESR 70 H (0-30) mm/hr Sodium 137 (136-145) mmol/L Potassium 3.6 (3.5-5.1) mmol/L Chloride 102 (98-107) mmol/L Carbon Dioxide 29 (21-32) mmol/L Anion Gap 6 (3-11) BUN 7 (6-23) mg/dl Creatinine 0.60 (0.6-1.2) mg/dl Est Cr Clr Drug Dosing 153.3 ml/min Est GFR ( Amer) 118.1 ml/min Est GFR (Non-Af Amer) 101.9 ml/min BUN/Creatinine Ratio 11.7 (10-20) Glucose 137 H (70-99(Fasting)) mg/dl POC Glucose (70-99) mg/dl Calcium 9.1 (8.5-10.1) mg/dl 05/23/22 Range/Units 20:14 WBC (4.8-10.8) K/ul RBC (3.93-5.22) M/uL Hgb (12.0-16.0) g/dl Hct (34.1-44.9) % MCV (80.0-100.0) fL MCH (25.0-34.0) pg MCHC (32.0-36.0) g/dL RDW Std Deviation (36.4-46.3) fL RDW Coeff of Anup (11.5-14.5) % Plt Count (130-400) K/uL MPV (9.4-12.3) fL Immature Gran % (Auto) % Neut % (Auto) % Lymph % (Auto) % Lea % (Auto) % Eos % (Auto) % Baso % (Auto) % Neut # (Auto) (1.4-6.5) K/uL Lymph # (Auto) (1.2-3.4) K/uL Lea # (Auto) (0.24-0.82) K/uL Eos # (Auto) (0-0.50) K/uL Baso # (Auto) (0-0.2) K/uL Immature Gran # (Auto) (0.00-0.02) K/uL ESR (0-30) mm/hr Sodium (136-145) mmol/L Potassium (3.5-5.1) mmol/L Chloride (98-107) mmol/L Carbon Dioxide (21-32) mmol/L Anion Gap (3-11) BUN (6-23) mg/dl Creatinine (0.6-1.2) mg/dl Est Cr Clr Drug Dosing ml/min Est GFR ( Amer) ml/min Est GFR (Non-Af Amer) ml/min BUN/Creatinine Ratio (10-20) Glucose (70-99(Fasting)) mg/dl POC Glucose 168 H (70-99) mg/dl Calcium (8.5-10.1) mg/dl PG Care Time/CCT Total # of Minutes Spent Total Time Spent with Patient: Total time spent is greater than 50% in coordination of care (as documented) at patient's floor/unit and/or counseling patient: Coding Level of Care Code 10250 Subseq Hosp Care Lvl 2 Diagnoses Proctocolitis K52.9 DMII (diabetes mellitus, type 2) E11.9 HTN (hypertension) I10 Asthma J45.909 Skin lesion L98.9 DAISY (obstructive sleep apnea) G47.33 Candidal intertrigo B37.2 DVT prophylaxis Z29.9
[2022-05-24] MEDS: NYSTATIN POWDER 15GM BTL EXT SCH (18:15)
[2022-05-24] MEDS: oxyCODONE/ACETAMINOPHEN 5mg/325mg TAB PO PRN (21:20)
[2022-05-25] MEDS: PIPERACILLIN/TAZOBACTAM 4.5 GM in DEXTROSE 5% 100 ML IV SCH ×2 (04:29→13:15)
[2022-05-25] MEDS: BUDESONIDE 0.5 MG/2 ML VIAL (PULMICORT) INH SCH (07:42)
[2022-05-25 08:13] LABS: Basophils # (auto) 0.03 K/uL (0-0.2); Basophils % (auto) 0.3 %; Eosinophils # (auto) 0.14 K/uL (0-0.50); Eosinophils % (auto) 1.5 %; Hematocrit (blood only) 38.8 % (34.1-44.9); Immature Granulocytes # (auto) 0.04 K/uL (0.00-0.02); Immature Granulocytes % (auto) 0.4 %; Lymphocytes # (auto) 2.65 K/uL (1.2-3.4); Lymphocytes % (auto) 29.1 %; Mean Corpuscular Hemoglobin 28.4 pg (25.0-34.0); Mean Corpuscular Hgb Conc 33.5 g/dL (32.0-36.0); Mean Corpuscular Volume 84.9 fL (80.0-100.0); Monocytes # (auto) 0.73 K/uL (0.24-0.82); Neutrophils # (auto) 5.52 K/uL (1.4-6.5); Neutrophils % (auto) 60.7 %; Platelet Count 315 K/uL (130-400); RDW Coefficient of Variation 13.3 % (11.5-14.5); RDW Standard Deviation 41.5 fL (36.4-46.3); Red Blood Count 4.57 M/uL (3.93-5.22); White Blood Count 9.11 K/ul (4.8-10.8)
[2022-05-25 08:46] LABS: Iron 47 mcg/dl (35-150); Total Iron Binding Cap Calc 313 mcg/dl (250-450); Transferrin (FE) Percent Satur 15 % (15-50); Unsaturated Iron Binding Cap 266 mcg/dl (155-355)
[2022-05-25 08:52] LABS: BUN Creatinine Ratio 7.8 (10-20); C Reactive Protein 3.77 mg/dl (0-0.5); Calcium 9.3 mg/dl (8.5-10.1); Creatinine Clr Calc Pharmacy 143.8 ml/min; Est GFR (African American) 115.6 ml/min; Est GFR (Non-African American) 99.8 ml/min; Potassium 3.7 mmol/L (3.5-5.1)
[2022-05-25] MEDS: amLODIPine BESYLATE 5 MG TAB PO SCH (08:57)
[2022-05-25] MEDS: LOSARTAN POTASSIUM 50 MG TAB PO SCH (08:57)
[2022-05-25] MEDS ORDERED: DULoxetine HCL 30 MG CAP PO SCH (09:00)
[2022-05-25] MEDS: DOCUSATE SODIUM/SENNA 50/8.6MG TAB PO SCH (09:03)
[2022-05-25] MEDS: ASPIRIN 81 MG ECTAB PO SCH (09:03)
[2022-05-25] MEDS: POLYETHYLENE (MIRALAX) 17 GM PACK PO SCH (09:03)
[2022-05-25] MEDS: ATORVASTATIN 20 MG TAB PO SCH (09:03)
[2022-05-25] MEDS: ENOXAPARIN INJ 40 MG/0.4 ML SYR SQ SCH (09:03)
[2022-05-25 09:04] LABS: Ferritin 63.9 ng/ml (8-388)
[2022-05-25] MEDS: INSULIN ASPART PER UNIT SC SCH ×2 (09:08→13:09)
[2022-05-25] MEDS: NYSTATIN POWDER 15GM BTL EXT SCH (09:55)
[2022-05-25] MEDS: LIDOCAINE 2% JELLY 5 ML TUBE EXT SCH (09:55)
[2022-05-25] MEDS: oxyCODONE/ACETAMINOPHEN 5mg/325mg TAB PO PRN (10:02)
--- NOTE | 2022-05-25 16:22 | Discharge Summary ---
Date of Service May 25, 2022 Admission HPI Per Admitting Provider 57yo F w/ hx of non-ischemic cardiomyopathy, recent breast abscess, DM, and obesity who presents with proctocolitis and rectal pain. Per patient, she recently had a breast abscess/infection. It began in late January, and she was in a hospital for a few days on IV abx before finishing a course with oral abx. The infection didn't fully resolve, and she underwent I&D with Dr. Duff on 03/05. She finished abx after that and has done well. About 3 days ago, she noted severe pain in the rectal area. There was no inciting factor at all. She denies any preceding diarrhea or constipation. In fact, she has been eating more fruits and vegetables and reports that she has 1- 2 normal BMs most days. She has not noted any blood, melena, mucus, or other concerning changes. She has not had any abdominal pain, change in appetite, bloating, nausea, vomiting, or other concerning symptoms. She has lost about 20 lbs in 2 months, but she reports she is actively dieting and eating better. She denied to myself and the ER physician any recent sexual intercourse, and denied specifically any anal intercourse. No family history of autoimmune diseases such as Crohn's disease or ulcerative colitis. Principal Diagnosis Proctocolitis, constipation, Hali intertrigo Discharge Exam Constitutional WD/WN, vitals as above Eyes + anicteric sclerae Neck trachea midline, no thyromegaly Respiratory normal respiratory effort, lungs clear to auscultation Cardiovascular RRR, no murmur, no edema Chest (Breasts) Chest: + abnormal inspection of chest (Left lateral breast incisional scar well- healed) Gastrointestinal (Abdomen) normal bowel sounds, soft, nontender, no hepatosplenomegaly Musculoskeletal Extremities: extremities normal to inspection; no cyanosis and no clubbing Skin no rashes, warm and dry + erythema (Erythema and cracked skin under her breasts bilaterally) Erythema and tenderness in the gluteal cleft throughout and perianal region Neurologic moves all extremities and awake; no focal motor deficits Psychiatric A+Ox3, euthymic affect Discharge Data Allergies Allergy/AdvReac Type Severity Reaction Status Date / Time bee venom protein (honey bee) Allergy Severe Anaphylaxis Verified 03/17/22 11:46 ibuprofen Allergy Mild swelling Verified 03/17/22 11:46 metformin Allergy Mild Gastrointestinal Verified 03/17/22 11:46 Upset mushroom Allergy Mild swelling Verified 03/17/22 11:46 Consultations 05/21/22 21:03 ED Decision to Admit Stat 05/22/22 00:43 Consult Gastroenterology Routine 05/22/22 16:34 Consult General Surgery Routine Ordered Studies 05/21/22 19:00 CT abd pelvis IV con only Stat 05/22/22 11:51 US breast LT limited Routine Hospital Course (1) Proctocolitis: CT a/p showed non-specific, mild proctocolitis. ALSO showed "Wall thickening with luminal narrowing is also noted involving the mid aspect of the descending colon" and bilateral inguinal lymphadenopathy up to 3.1x1.4 cm on the right. Possible IBD (Crohn's) given several areas of irritation and a new stricture, though her constellation of symptoms does not otherwise appear consistent with this. Alternatively, STI such as lymphogranuloma venereum could be possible as well. - DDX: Stercoral vs. infective- appreciate GI consultation-recommends colonoscopy as an outpatient - She reports pain and burning with defecation and denies a history of hemorrhoids -Suspect a lot of her pain in the bottom is from her Hali intertrigo in the gluteal cleft-treating with nystatin powder and fluconazole -GC and Chlamydia negative Sed rate quite high at 71 and decreased to 69 on day of discharge,, CRP somewhat elevated at 3, procalcitonin negative-I presume her inflammatory markers are elevated due to colitis, but question if there is something more ominous causing them to be elevated such as a GI malignancy. Leukocytosis was improving but went back up but then decreased again to normal on the day of discharge. No fevers. Started on a bowel regimen and was having regular bowel movements prior to discharge -Was treated with IV antibiotics in the form of Zosyn and then will convert to Augmentin to finish out a 10-day course upon discharge -Recommend colonoscopy as an outpatient in 6 weeks to rule out underlying colon mass/lesion or IBD-an appointment was made for her with GI prior to discharge -Follow CBC, CMP, ESR, CRP as an outpatient -Continue bowel regimen with MiraLAX twice a day and stool softeners after discharge -Continue pain control with Percocet as needed-a small prescription for this was provided at the time of discharge -Recommend repeat imaging to assess improvement of the inguinal lymphadenopathy either with ultrasound or CT scan in 1 month and possible FNA of the enlarged lymph nodes if persist -Given borderline microcytosis and borderline anemia, checked iron studies given concern for IBD or colon lesion-fairly normal Stable for discharge to home (2) DMII (diabetes mellitus, type 2): A1c was 10.2% in 01/2022 and now is down to 8.2% With some occasional hyperglycemia here -Was treated with insulin sliding scale while here -Restart home Januvia on discharge-discussed with PCP -Would benefit from GLP-1 agonist as an outpatient for diabetes and weight loss (3) HTN (hypertension): BP controlled - Continue home amlodipine, losartan (4) Asthma: No acute issues, no wheezing on exam -Continue albuterol as needed and budesonide nebs BID (5) Skin lesion: She notes that she has been having some pain under her breasts and left breast with some drainage noted last week -Had incision and drainage of left breast cyst in February as well as I&D and culture was negative-was treated with antibiotics orally -Obtained ultrasound of the left breast eval for any abscess, although not warm/red/or with current drainage-small fluid collection -Appreciate surgery consultation-no surgery needed at this time, follow-up as an outpatient Also with Hali intertrigo of the breast as below (6) DAISY (obstructive sleep apnea): HX of as well as non-tolerant to BIPAP - no acute needs -Advised weight loss (7) Candidal intertrigo: With Hali intertrigo rash under both breasts, in both inguinal folds, as well as in gluteal cleft causing significant pain and some skin cracking Seen by wound care and had called a stat probe placed under the breasts and in the groin folds Started on nystatin powder underneath breasts, in groin folds, and can also apply in gluteal cleft Will also start fluconazole 200 Mg p.o. once daily x10-day course on discharge This is the cause of the majority of her pain in her bottom (8) DVT prophylaxis: High risk given prior DVT. - Lovenox 40 mg SQ Q12h -> Higher dose for obesity Disposition-stable for discharged home Total Time Total Time Spent Total Time Spent (In Minutes): 35 minutes Discharge Plan Discharge Items Patient Disposition: Home - Self-Care Reason For Visit: PROTOCOLITIS Discharge Diagnosis: Hali Intertrigo, Procto-colitis, constipation Condition on Discharge: Fair Activity: Resume your previous activity Non-emergency contact: Primary Care Provider and [employer] Equipment Operator Call non-emergency contact if: you have any medication questions, your symptoms worsen, your pain is not controlled, your pain is worsening and you have a fever Follow-up/Referrals: Lizzie Coronado CRNP [Nurse Practitioner] - 06/03/22 11:00 am Loreta Smith [Primary Care Provider] - 06/03/22 10:30 am (Follow up within 1-2 weeks) Diet: Carb Consistent or DM2 and Low Fiber Addtl Attending Provider Instructions: You are admitted with rectal pain and found to have inflammation of your colon and rectum on a CT scan. While this could be from constipation, it could be from a bacterial source. You were treated with antibiotics and should continue oral antibiotics for 6 more days with Augmentin 1 tablet twice a day. Because of the abnormal appearance of your colon and rectum on CT scan, it is recommended that you have a colonoscopy in 6 weeks as an outpatient with [facility] gastroenterology. Please continue to keep your bowels moving regularly. You can take stool softeners or MiraLAX as needed for this. You had enlarged lymph nodes in your groin seen on CT of the abdomen and pelvis. This should be followed as an outpatient with a repeat CT scan or ultrasound in 1 month to ensure these lymph nodes are decreasing in size. They may be reactive to your ongoing infection in the rectum. You can take Percocet as needed for pain. It seems that the majority of the pain in your bottom is more from a yeast infection of the skin around the anus. You also were found to have a yeast infection of the skin under the breasts and in the groins. Please keep these areas dry and use the nystatin powder twice a day. You will also be given fluconazole as a tablet once daily for 10-day course as an antifungal antibiotic. Follow-up with your primary care physician within 1 to 2 weeks. Pending Studies at Discharge: No Stand-Alone Forms: My [employer], Smoking Cessation Medications and DC Order Prescriptions: New oxycodone-acetaminophen [Percocet] 5-325 mg Tablet 1 tab PO Q4H PRN (Reason: Moderate-severe pain) Qty: 14 0RF nystatin [Nystop] 100,000 unit/gram Powder 1 applic EXT BID Qty: 15 0RF amoxicillin-pot clavulanate 875-125 mg tablet 1 tab PO BID Qty: 12 0RF fluconazole 200 mg tablet 200 mg PO DAILY Qty: 10 0RF docusate sodium 100 mg capsule 100 mg PO BID Qty: 60 0RF Rx Instructions: OTC polyethylene glycol 3350 [Miralax] 17 gram/dose powder 17 g PO BID Qty: 119 0RF Continued atorvastatin 20 mg tablet 20 mg PO QAM Januvia 100 mg tablet 100 mg PO QAM albuterol sulfate 2.5 mg /3 mL (0.083 %) solution for nebulization 6 ml Inhalation Q6 PRN (Reason: Shortness Of Breath) albuterol sulfate [Ventolin HFA] 90 mcg/actuation Hfa Aerosol Inhaler 2 puff INHALATION QID PRN (Reason: Shortness Of Breath) aspirin tablet 81 mg PO DAILY duloxetine 30 mg capsule,delayed release(DR/EC) 30 mg PO DAILY losartan 50 mg tablet 50 mg PO QAM budesonide 1 mg/2 mL suspension for nebulization 0.5 mg inhalation HS amlodipine 5 mg tablet 10 mg PO QAM Discontinued hydrocodone-acetaminophen 5-325 mg tablet 1 - 2 tab PO Q8H PRN (Reason: pain, for initial therapy, max 6 tabs per day ) Qty: 15 0RF Discharge Orders: Discharge Order (Routine); Ordered 05/25/22 Ordered By: Hui Lorenz/Other Patient Handouts: Managing Type 2 Diabetes, Diabetes: Meal Planning Admission Data Admit Date/Time: 05/24/22 12:12 Attending Provider: Hui Lagos Admit Provider: Eugenio Vivas Primary Care Provider: Loreta Smith Other Providers: Eugenio Vivas ; Navarro Mtz ; Kale Duff Coding Level of Care Code D/C DAY MANAGEMENT >30 MINS Diagnoses Proctocolitis K52.9 DMII (diabetes mellitus, type 2) E11.9 HTN (hypertension) I10 Asthma J45.909 Skin lesion L98.9 DAISY (obstructive sleep apnea) G47.33 Candidal intertrigo B37.2 DVT prophylaxis Z29.9
== END 2022-05-25 17:45 | disposition home or self-care (01) | DRG 386 ==
LOC: 3W 17:30 → ED 17:30 → SUATTDRO 21:59 → 3W 23:36